=== PATIENT | male | born 1935 | race African-American/Black ===

== ENCOUNTER 2016-09-28 23:44 | Emergency (ER) | payer OTHER ==
[2016-09-28 23:49] VITALS: BP 157/85; PULSE 83; TEMP 97.8; BMI 22.0
[2016-09-29] MEDS ORDERED: ALBUTEROL SO4 2.5/IPRATROPIUM 0.5 INH SOL 3 ML VIAL.NEB. NEB ONE ×2 (00:02→00:18)
[2016-09-29] MEDS ORDERED: methylPREDNISolone NA SUCC 125 MG/2 ML VIAL IVPB ONE (00:02)
--- NOTE | 2016-09-29 00:02 | PDOC ---
History of Present Illness - General History Source: Patient Exam Limitations: No Limitations - History of Present Illness Initial Comments: 09/29/16 00:12 The patient is a 80 year old male with significant past medical history of CAD, s/p stents x, PVD (LE stent in 2012), hypertension, COPD, active smoker, asthma , ?afib in remote past was on coumadin but taken off who presents to the ED with 2 days of worsening SOB. Patient reports intermittent SOB over the past several weeks, however his SOB has worsened over the past 2 days. He also has complaints of productive cough with yellow sputum. Patient denies diaphoresis, lightheadedness, chest pain, shoulder pain, arm pain, jaw pain, nausea, and vomiting. The patient denies fever, chills, abdominal pain, and diarrhea. Allergies: NKDA Social History: Current smoker (5 cigarettes daily) Past Surgical History: s/p cardiac stent x1, s/p LE stent (2012) PCP: Dr. Armani Barraza <Olga Brooks - Last Filed: 09/29/16 00:46> - General History Source: Patient <AlyEdward saul - Last Filed: 09/29/16 01:58> - General Chief Complaint: Shortness of Breath Stated Complaint: SHORTNESS OF BREATH Time Seen by Provider: 09/28/16 23:58 Past History <Olga Brooks - Last Filed: 09/29/16 00:46> - Past Medical History Anemia: No Asthma: Yes Cancer: Yes (H/O PROSTATE) Cardiac Disorders: Yes (stents, [place] x 2) COPD: Yes Disorders: Yes (RETENTION) - Surgical History Cardiac Surgery: Yes (STENT) - Psycho/Social/Smoking Cessation Hx Anxiety: No Suicidal Ideation: No Smoking Status: Yes Smoking History: Current some day smoker Have you smoked in the past 12 months: Yes Number of Cigarettes Smoked Daily: 5 Information on smoking cessation initiated: No 'Breaking Loose' booklet given: 08/22/14 Hx Alcohol Use: No Drug/Substance Use Hx: No Substance Use Type: None <Edawrd Nelson - Last Filed: 09/29/16 01:58> - Past Medical History Allergies/Adverse Reactions: Allergies Allergy/AdvReac Type Severity Reaction Status Date / Time No Known Allergies Allergy Verified 09/28/16 23:46 Home Medications: Ambulatory Orders Albuterol [Ventolin] 17 gm IH ASDIR PRN 02/08/12 Esomeprazole Mag Trihydrate [Nexium] 40 mg PO BID 02/08/12 Hydrocodone Bit/Acetaminophen [Vicodin Es 7.5-750 mg Tablet] 1 each PO Q6H 02/07 Aspirin Coated [Ecotrin -] 81 mg PO DAILY #30 tablet.ec 08/24/14 Atorvastatin Ca [Lipitor] 20 mg PO HS #30 tablet 08/24/14 Diltiazem Cd [Cardizem Cd -] 180 mg PO DAILY #30 cap.cd.24h 08/24/14 Enoxaparin [Lovenox -] 75 mg SQ BID 7 Days 08/24/14 Furosemide [Lasix -] 20 mg PO DAILY #30 tablet 08/24/14 Tamsulosin HCl [Flomax -] 0.4 mg PO DAILY@0830 #30 cap.er.24h 08/24/14 Warfarin Na [Coumadin -] 5 mg PO DAILY@1800 #30 tablet 08/24/14 Methylprednisolone [Medrol Dose Emery] 4 mg PO ASDIR #21 tablet 09/29/16 Review of Systems - Review of Systems Able to Perform ROS?: Yes Comments:: 09/29/16 00:12 CONSTITUTIONAL: Absent: fever, chills, diaphoresis, generalized weakness, malaise, loss of appetite HEENT: Absent: rhinorrhea, nasal congestion, throat pain, throat swelling, difficulty swallowing, mouth swelling, ear pain, eye pain, visual Changes CARDIOVASCULAR: Absent: chest pain, syncope, palpitations, irregular heart rate, lightheadedness , peripheral edema RESPIRATORY: +cough, shortness of breath Absent: dyspnea with exertion, orthopnea, wheezing, stridor, hemoptysis GASTROINTESTINAL: Absent: abdominal pain, abdominal distension, nausea, vomiting, diarrhea, constipation, melena, hematochezia GENITOURINARY: Absent: dysuria, frequency, urgency, hesitancy, hematuria, flank pain, genital pain MUSCULOSKELETAL: Absent: myalgia, arthralgia, joint swelling SKIN: Absent: rash, itching, pallor NEUROLOGIC: Absent: headache, focal weakness or paresthesias, dizziness, unsteady gait, seizure, mental status changes, bladder or bowel incontinence PSYCHIATRIC: Absent: anxiety, depression, suicidal or homicidal ideation, hallucinations. <Olga Brooks - Last Filed: 09/29/16 00:46> *Physical Exam - Vital Signs Last Vital Signs Temp Pulse Resp BP Pulse Ox 97.8 F 83 16 157/85 100 09/28/16 23:47 09/28/16 23:47 09/28/16 23:47 09/28/16 23:47 09/28/16 23:47 - Physical Exam Comments: 09/29/16 00:12 GENERAL: Well developed, well nourished. Awake and alert. No acute distress. HEENT: Normocephalic, atraumatic. PERRLA, EOMI. No conjunctival pallor. Sclera are non- icteric. Moist mucous membranes. Oropharynx is clear. NECK: Supple. Full ROM. No JVD. Carotid pulses 2+ and symmetric, without bruits. No thyromegaly. No lymphadenopathy. CARDIOVASCULAR: Regular rate and rhythm. No murmurs, rubs, or gallops. Distal pulses are 2+ and symmetric. PULMONARY: Mild respiratory distress. Conversational dyspnea. Course bilateral wheezing. ABDOMINAL: Soft. Non-tender. Non-distended. No rebound or guarding. No organomegaly. Normoactive bowel sounds. MUSCULOSKELETAL Normal range of motion at all joints. No bony deformities or tenderness. No CVA tenderness. EXTREMITIES: No cyanosis. No clubbing. No edema. No calf tenderness. SKIN: Warm and dry. Normal capillary refill. No rashes. No jaundice. NEUROLOGICAL: Alert, awake, appropriate. Cranial nerves 2-12 intact. Moving all extremities. No focal neurological deficits. PSYCHIATRIC: Cooperative. Good eye contact. Appropriate mood and affect. <Olga Brooks - Last Filed: 09/29/16 00:46> - Vital Signs Last Vital Signs Temp Pulse Resp BP Pulse Ox 97.8 F 83 16 157/85 100 09/28/16 23:47 09/28/16 23:47 09/28/16 23:47 09/28/16 23:47 09/28/16 23:47 <Edward Nelson - Last Filed: 09/29/16 01:58> Heart Score/ECG Review - ECG Impressions Comment:: 09/29/16 00:46 NSR @80bpm Possible left atrial enlargement Anteroseptal infarct, age undetermined Abnormal ECG <Olga Brooks - Last Filed: 09/29/16 00:46> ED Treatment Course - LABORATORY CBC & Chemistry Diagram: 09/29/16 00:27 09/29/16 00:27 <Olga Brooks - Last Filed: 09/29/16 00:46> - LABORATORY CBC & Chemistry Diagram: 09/29/16 00:27 09/29/16 00:27 <Edward Nelson - Last Filed: 09/29/16 01:58> Medical Decision Making - Medical Decision Making 09/29/16 01:58 Dr. Nelson: The scribe's documentation has been prepared under my direction and personally reviewed by me in its entirery. I confirm that the note above accurately reflects all work, treatment, procedures, and medical decision making performed by me. <Edward Nelson - Last Filed: 09/29/16 01:58> *DC/Admit/Observation/Transfer - Attestations Scribe Attestion: 09/29/16 00:12 Documentation prepared by Olga Brooks, acting as medical authorization specialist for Edward Nelson MD <Olga Brooks - Last Filed: 09/29/16 00:46> - Discharge Dispostion Admit: No <Edward Nelson - Last Filed: 09/29/16 01:58> Diagnosis at time of Disposition: COPD (chronic obstructive pulmonary disease) - Discharge Dispostion Disposition: HOME Condition at time of disposition: Improved - Prescriptions Prescriptions: Methylprednisolone [Medrol Dose Emery] 4 mg PO ASDIR #21 tablet - Referrals Referrals: Armani Barraza MD [Staff Physician] - - Patient Instructions Printed Discharge Instructions: DI for Chronic Obstructive Pulmonary Disease
[2016-09-29] MEDS ORDERED: MAGNESIUM SULF 50% (8.12 MEQ/2 ML-1 GM VIAL) IVPB ONE (00:03)
[2016-09-29] MEDS ORDERED: methylPREDNISolone NA SUCC 125 MG/2 ML VIAL ONE (00:18)
[2016-09-29] MEDS ORDERED: MAGNESIUM SULF 50% (8.12 MEQ/2 ML-1 GM VIAL) ONE ×2 (00:18→00:19)
[2016-09-29 00:36] LABS: BASOPHIL 2.4 % (0-2.0); EOSINOPHIL 16.7 % (0-4.5); MCH 28.1 pg (25.7-33.7); MCHC 32.9 g/dl (32.0-35.9); MEAN CELL VOLUME 85.6 fl (80-96); MEAN PLT VOLUME 7.4 fl (7.5-11.1); NEUTROPHILS 24.1 % (42.8-82.8); PLATELET COUNT 224 K/MM3 (134-434); RDW 15.2 % (11.9-15.9); WHITE BLOOD COUNT 5.1 K/mm3 (4.0-10.0)
[2016-09-29 01:10] LABS: ALBUMIN 3.9 g/dl (3.4-5.0); BILIRUBIN,TOTAL 0.4 mg/dL (0.2-1.0); CALCIUM 8.4 mg/dL (8.5-10.1); CREATININE 1.3 mg/dL (0.7-1.3)
[2016-09-29 01:13] LABS: TROPONIN I < 0.02 ng/ml (0.00-0.05)
--- NOTE | 2016-09-29 15:38 | EKG ---
Test Reason : Blood Pressure : / mmHG Vent. Rate : 080 BPM Atrial Rate : 080 BPM P-R Int : 154 ms QRS Dur : 092 ms QT Int : 380 ms P-R-T Axes : 079 022 079 degrees QTc Int : 438 ms POOR DATA QUALITY, INTERPRETATION MAY BE ADVERSELY AFFECTED NORMAL SINUS RHYTHM POSSIBLE LEFT ATRIAL ENLARGEMENT ANTEROSEPTAL INFARCT (CITED ON OR BEFORE 11-FEB-2001) ABNORMAL ECG WHEN COMPARED WITH ECG OF 23-AUG-2014 09:07, PREMATURE VENTRICULAR COMPLEXES ARE NO LONGER PRESENT QUESTIONABLE CHANGE IN INITIAL FORCES OF ANTERIOR LEADS NONSPECIFIC T WAVE ABNORMALITY, IMPROVED IN LATERAL LEADS Confirmed by LUCERO HARRISON, [facility] ([id number]) on 09/29/2016 3:38:18 PM Referred By: Confirmed By:LUH BARKER MD
== END 2016-09-29 02:30 | disposition home or self-care (01) ==
LOC: JER 23:44
PROC: 3E0F7GC Introduction of Other Therapeutic Substance into Respiratory Tract, Via Natural or Artificial Opening (ICD-10-PCS; principal; 2016-09-28)
PROC: 3E0333Z Introduction of Anti-inflammatory into Peripheral Vein, Percutaneous Approach (ICD-10-PCS; 2016-09-28)
PROC: 3E033GC Introduction of Other Therapeutic Substance into Peripheral Vein, Percutaneous Approach (ICD-10-PCS; 2016-09-28)
DX: J44.9 Chronic obstructive pulmonary disease, unspecified (principal); I25.10 Atherosclerotic heart disease of native coronary artery without angina pectoris; I10 Essential (primary) hypertension; Z95.5 Presence of coronary angioplasty implant and graft; I73.89 Other specified peripheral vascular diseases; I48.91 Unspecified atrial fibrillation; F17.210 Nicotine dependence, cigarettes, uncomplicated; J45.909 Unspecified asthma, uncomplicated
CPT/HCPCS: 36415; 71010-TC; 80053; 82550; 82553; 84484; 85025; 93005; 93010; 99282-25

== ENCOUNTER 2017-07-20 10:41 | Inpatient (IN) | payer OTHER ==
[2017-07-20] MEDS ORDERED: ALBUTEROL SO4 2.5/IPRATROPIUM 0.5 INH SOL 3 ML VIAL.NEB. NEB ONE ×2 (10:48→11:54)
[2017-07-20 10:55] VITALS: BMI 22.0
[2017-07-20 11:20] LABS: BASOPHIL 1.8 % (0-2.0); MCHC 32.4 g/dl (32.0-35.9); MEAN CELL VOLUME 86.3 fl (80-96); MEAN PLT VOLUME 7.1 fl (7.5-11.1); NEUTROPHILS 38.5 % (42.8-82.8); PLATELET COUNT 280 K/MM3 (134-434); RDW 15.4 % (11.9-15.9); WHITE BLOOD COUNT 5.6 K/mm3 (4.0-10.0)
[2017-07-20] MEDS: ALBUTEROL SO4 2.5/IPRATROPIUM 0.5 INH SOL 3 ML VIAL.NEB. NEB SCH ×4 (11:20→13:08)
[2017-07-20 11:35] LABS: ALBUMIN 3.7 g/dl (3.4-5.0); ALK PHOS 48 U/L (45-117); ANION GAP 5 (8-16); BILIRUBIN,TOTAL 0.3 mg/dL (0.2-1.0); CALCIUM 8.2 mg/dL (8.5-10.1); CO2 31 mmol/L (21-32); CREATININE 1.2 mg/dL (0.7-1.3); GLUCOSE,RANDOM 98 mg/dL (74-106); SGOT/AST 14 U/L (15-37); SGPT/ALT 16 U/L (12-78); TOT PROT 6.8 g/dl (6.4-8.2)
--- NOTE | 2017-07-20 11:38 | PDOC ---
History of Present Illness - History of Present Illness Initial Comments: 07/20/17 12:20 The patient is a 81 year old male, with a significant past medical history of CAD s/p stents x2 (on Coumadin), COPD, BPH, prostate CA s/p radiation therapy, hyperlipidemia, who presents to the emergency department with progressive exertional shortness of breath and cough over the past few days. He states he has been short of breath with walking shorter than usual distances. He states he can walk several blocks at baseline without becoming dyspneic, however, today can not seem to walk more than 2 blocks. He reports his cough is productive of brown sputum. He reports receiving the influenza vaccine this season and attests to contact with a sick family member recently. He denies chest pain, headache and dizziness. He denies fever, chills, nausea, vomit, diarrhea and constipation. He denies dysuria, frequency, urgency and hematuria. Allergies: NKDA Past surgical history: stents x 2 Social history: everyday smoker since age 11 PCP: Dr. Barraza <Rosie Gunn - Last Filed: 07/20/17 12:24> <Lenin Atwood - Last Filed: 07/20/17 13:22> - General Chief Complaint: Shortness of Breath Stated Complaint: SOB Time Seen by Provider: 07/20/17 11:08 Past History <Rosie Gunn - Last Filed: 07/20/17 12:24> - Past Medical History Anemia: No Asthma: Yes Cancer: Yes (H/O PROSTATE) Cardiac Disorders: Yes (stents, [place] x 2) COPD: Yes Disorders: Yes (RETENTION) - Surgical History Cardiac Surgery: Yes (STENT) - Suicide/Smoking/Psychosocial Hx Smoking Status: Yes Smoking History: Current every day smoker Have you smoked in the past 12 months: Yes Number of Cigarettes Smoked Daily: 2 Information on smoking cessation initiated: No 'Breaking Loose' booklet given: 08/22/14 Hx Alcohol Use: No Drug/Substance Use Hx: No Substance Use Type: None <Lenin Atwood - Last Filed: 07/20/17 13:22> - Past Medical History Allergies/Adverse Reactions: Allergies Allergy/AdvReac Type Severity Reaction Status Date / Time No Known Allergies Allergy Verified 07/20/17 11:23 Home Medications: Ambulatory Orders Albuterol [Ventolin] 17 gm IH ASDIR PRN 02/08/12 Esomeprazole Mag Trihydrate [Nexium] 40 mg PO BID 02/08/12 Hydrocodone Bit/Acetaminophen [Vicodin Es 7.5-750 mg Tablet] 1 each PO Q6H 02/07 Aspirin Coated [Ecotrin -] 81 mg PO DAILY #30 tablet.ec 08/24/14 Atorvastatin Ca [Lipitor] 20 mg PO HS #30 tablet 08/24/14 Diltiazem Cd [Cardizem Cd -] 180 mg PO DAILY #30 cap.cd.24h 08/24/14 Enoxaparin [Lovenox -] 75 mg SQ BID 7 Days disp.syrin 08/24/14 Furosemide [Lasix -] 20 mg PO DAILY #30 tablet 08/24/14 Tamsulosin HCl [Flomax -] 0.4 mg PO DAILY@0830 #30 cap.er.24h 08/24/14 Warfarin Na [Coumadin -] 5 mg PO DAILY@1800 #30 tablet 08/24/14 Methylprednisolone [Medrol Dose Emery] 4 mg PO ASDIR #21 tablet 09/29/16 Review of Systems - Review of Systems Constitutional: No: Chills, Fever Respiratory: Yes: Cough, Shortness of Breath Cardiac (ROS): No: Chest Pain, Edema, Syncope ABD/GI: No: Diarrhea, Vomiting Neurological: No: Headache All Other Systems: Reviewed and Negative <Lenin Atwood - Last Filed: 07/20/17 13:22> *Physical Exam - Vital Signs Last Vital Signs Temp Pulse Resp BP Pulse Ox 98.2 F 88 24 152/84 100 07/20/17 10:52 07/20/17 10:52 07/20/17 10:52 07/20/17 10:52 07/20/17 11:02 - Physical Exam Comments: 07/20/17 12:20 GENERAL: The patient is awake, alert, and fully oriented, in no acute distress. HEAD: Normal with no signs of trauma. EYES: Pupils equal, round and reactive to light, extraocular movements intact, sclera anicteric, conjunctiva clear with no pallor. ENT: Ears normal, nares patent, oropharynx clear without exudates. Moist mucous membranes. NECK: Normal range of motion, supple without lymphadenopathy, JVD, or masses. LUNGS: (+) tachypneic. Breath sounds equal, Course breath sounds with slight expiratory wheezing but no focally decreased breath sounds, no inspiratory crackles, no accessory muscle use HEART: (+) Heart is irregular, premature beats on monitor, normal S1 and S2 without murmur or rub. ABDOMEN: Soft/nontender/nondistended. BS wnl. No guarding or rebound. No palpable masses. No hepatosplenomegaly. EXTREMITIES: Normal range of motion, no edema. No clubbing or cyanosis. No cords, erythema, or tenderness. NEUROLOGICAL: Cranial nerves II through XII grossly intact. Normal speech, normal gait. PSYCH: Normal mood, normal affect. SKIN: Warm, Dry, normal turgor, no rashes or lesions noted. <Rosie Gunn - Last Filed: 07/20/17 12:24> - Vital Signs Last Vital Signs Temp Pulse Resp BP Pulse Ox 98.2 F 88 24 152/84 100 07/20/17 10:52 07/20/17 10:52 07/20/17 10:52 07/20/17 10:52 07/20/17 11:02 <Lenin Atwood - Last Filed: 07/20/17 13:22> Heart Score/ECG Review #1 ECG reviewed & interpreted by me at: 10:56 General ECG Interpretation: Sinus Rhythm, Normal Rate (84), Normal Intervals ( qtc 430), No acute ischemic changes (Q AVL, APC v. sinus arrhythmia, septal Q waves) <Lenin Atwood - Last Filed: 07/20/17 13:22> ED Treatment Course - LABORATORY CBC & Chemistry Diagram: 07/20/17 11:00 07/20/17 11:00 - ADDITIONAL ORDERS Additional order review: Laboratory Results 07/20/17 11:00 Sodium 141 Potassium 4.4 Chloride 105 Carbon Dioxide 31 Anion Gap 5 L BUN 11 D Creatinine 1.2 Creat Clearance w eGFR 57.96 Random Glucose 98 Calcium 8.2 L Total Bilirubin 0.3 D AST 14 L ALT 16 Alkaline Phosphatase 48 Total Protein 6.8 Albumin 3.7 07/20/17 11:00 RBC 4.79 MCV 86.3 MCHC 32.4 RDW 15.4 MPV 7.1 L Neutrophils % 38.5 L D Lymphocytes % 28.4 D Monocytes % 13.3 H Eosinophils % 18.0 H Basophils % 1.8 - Medications Given in the ED: ED Medications Discontinued Medications Generic Name Dose Route Start Last Admin Trade Name Jagjit PRN Reason Stop Dose Admin Aspirin 81 mg 07/20/17 11:45 07/20/17 11:59 Asa - PO 07/20/17 11:46 81 mg ONCE ONE Administration Methylprednisolone Sodium Succinate 125 mg 07/20/17 11:58 07/20/17 12:03 Solu-Medrol - IVPB 07/20/17 11:59 125 mg ONCE ONE Administration <Rosie Gunn - Last Filed: 07/20/17 12:24> - LABORATORY CBC & Chemistry Diagram: 07/20/17 11:00 07/20/17 11:00 - ADDITIONAL ORDERS Additional order review: 07/20/17 11:00 RBC 4.79 MCV 86.3 MCHC 32.4 RDW 15.4 MPV 7.1 L Neutrophils % 38.5 L D Lymphocytes % 28.4 D Monocytes % 13.3 H Eosinophils % 18.0 H Basophils % 1.8 <Lenin Atwood - Last Filed: 07/20/17 13:22> Medical Decision Making - Medical Decision Making 07/20/17 11:55 A portion of this note was documented by scribe services under my direction. I have reviewed the details of the note, within reason, and agree with the documentation with the following case summary and management plan written by me. 81-year-old male with history of cardiac disease and COPD presents with 2 days of worsening dyspnea on exertion with cough but no fevers or chills. No chest pain, baseline exercise tolerance is several blocks but now having difficulty walking just 1 or 2 blocks. No orthopnea, no edema. Recent exposure to family members with upper respiratory infections, use his nebulizer without relief so he presents for evaluation. Tachypnea, vital signs otherwise normal Seen after first nebulizer, states he is breathing more comfortably Course breath sounds with slight expiratory wheezing but no focally decreased breath sounds, no inspiratory crackles, no accessory muscle use Heart is irregular, premature beats on monitor Abdomen is benign No edema 81-year-old male with known history of CAD/CHF and COPD presents with 2 days of worsening dyspnea, wheezing on exam without evidence of significant volume overload. Presentation seems most consistent with COPD exacerbation, possible cardiac component. Labs, monitoring Supplemental O2, nebulizers Start steroids EKG, chest x-ray Admission, PMD Madi 07/20/17 12:54 labs wnl, cxr without acute infiltrate, normal heart, hyperinflated consistent with COPD. Received nebs/steroids, will proceed with admission. Dr. Sinha/ Heriberto covering Madi. 07/20/17 13:19 Accepted for inpatient med/surg by Dr. Louis, covering Dr. Barraza. <Lenin Atwood - Last Filed: 07/20/17 13:22> *DC/Admit/Observation/Transfer - Attestations Scribe Attestion: 07/20/17 12:21 Documentation prepared by Rosie Gunn, acting as medical associate for Lenin Atwood MD, <Rosie Gunn - Last Filed: 07/20/17 12:24> - Discharge Dispostion Admit: Yes <Lenin Atwood - Last Filed: 07/20/17 13:22> Diagnosis at time of Disposition: Dyspnea on exertion, Acute exacerbation of chronic obstructive pulmonary disease (COPD) - Discharge Dispostion Condition at time of disposition: Fair - Referrals Referrals: Armani Barraza MD [Primary Care Provider] - - Patient Instructions - Post Discharge Activity
[2017-07-20] MEDS ORDERED: ASPIRIN 81 MG CHEWABLE TABLETS PO ONE (11:45)
[2017-07-20] MEDS ORDERED: ASPIRIN 81 MG CHEWABLE TABLETS ONE (11:53)
[2017-07-20] MEDS ORDERED: methylPREDNISolone NA SUCC 1000 MG/8 ML VIAL IVPB ONE (11:58)
[2017-07-20] MEDS ORDERED: methylPREDNISolone NA SUCC 125 MG/2 ML VIAL ONE (12:02)
[2017-07-20 12:35] LABS: CPK 334 IU/L (39-308); TROPONIN I < 0.02 ng/ml (0.00-0.05)
--- NOTE | 2017-07-20 16:30 | EKG ---
Test Reason : Blood Pressure : / mmHG Vent. Rate : 084 BPM Atrial Rate : 084 BPM P-R Int : 158 ms QRS Dur : 096 ms QT Int : 364 ms P-R-T Axes : 084 063 077 degrees QTc Int : 430 ms SINUS RHYTHM WITH MARKED SINUS ARRHYTHMIA ANTEROSEPTAL INFARCT (CITED ON OR BEFORE 11-FEB-2001) ABNORMAL ECG WHEN COMPARED WITH ECG OF 29-SEP-2016 00:27, NO SIGNIFICANT CHANGE WAS FOUND Confirmed by [facility] BARKER MD ([id number]) on 07/20/2017 4:30:22 PM Referred By: Confirmed By:LUH BARKER MD
[2017-07-20] MEDS ORDERED: ALBUTEROL SO4 2.5/IPRATROPIUM 0.5 INH SOL 3 ML VIAL.NEB. NEB PRN (20:58)
[2017-07-20 20:59] LABS: INR 1.82 (0.82-1.09); PROTHROMBIN TIME (PATIENT) 20.6 SEC (9.98-11.88)
[2017-07-20] MEDS: methylPREDNISolone NA SUCC 40 MG/1 ML VIAL IVPUSH SCH (21:55)
[2017-07-20] MEDS: WARFARIN NA 5 MG TABLET (UD) PO SCH (21:55)
[2017-07-20] MEDS: RANITIDINE HCL 150 MG TABLET (FP) PO SCH (21:55)
[2017-07-20] MEDS ORDERED: INSULIN SLIDING SCALE (NOVOLOG) 1 VIAL SQ SCH (22:00)
[2017-07-21] MEDS: methylPREDNISolone NA SUCC 40 MG/1 ML VIAL IVPUSH SCH ×2 (02:42→10:11)
[2017-07-21] MEDS: RANITIDINE HCL 150 MG TABLET (FP) PO SCH (06:23)
[2017-07-21 07:08] LABS: BASOPHIL 0.2 % (0-2.0); MCH 27.9 pg (25.7-33.7); MCHC 32.6 g/dl (32.0-35.9); MEAN CELL VOLUME 85.6 fl (80-96); MEAN PLT VOLUME 7.2 fl (7.5-11.1); NEUTROPHILS 70.2 % (42.8-82.8); PLATELET COUNT 291 K/MM3 (134-434); RDW 15.5 % (11.9-15.9); WHITE BLOOD COUNT 3.1 K/mm3 (4.0-10.0)
[2017-07-21 07:20] LABS: INR 1.79 (0.82-1.09); PROTHROMBIN TIME (PATIENT) 20.2 SEC (9.98-11.88)
[2017-07-21 07:47] LABS: ALBUMIN 3.3 g/dl (3.4-5.0); ANION GAP 11 (8-16); CALCIUM 7.9 mg/dL (8.5-10.1); CO2 24 mmol/L (21-32); GLUCOSE,RANDOM 132 mg/dL (74-106); SGOT/AST 9 U/L (15-37); SGPT/ALT 13 U/L (12-78)
[2017-07-21 07:50] LABS: ALK PHOS 42 U/L (45-117); BILIRUBIN,TOTAL 0.4 mg/dL (0.2-1.0); TOT PROT 6.2 g/dl (6.4-8.2)
[2017-07-21] MEDS: ROSUVASTATIN CA 20 MG TABLET (FP) PO SCH (10:10)
[2017-07-21] MEDS: PANTOPRAZOLE 40 MG TABLET (FP) PO SCH (10:10)
[2017-07-21] MEDS: TAMSULOSIN HCL 0.4 MG CAP.ER.24H (FP) PO SCH (10:10)
[2017-07-21] MEDS: FUROSEMIDE 40 MG TABLET (FP) PO SCH ×3 (10:11→11:18)
[2017-07-21] MEDS ORDERED: guaiFENesin 200 MG/10 ML 10 ML UNIT-DOSE CUPS PO PRN (10:20)
--- NOTE | 2017-07-21 10:24 | HP ---
Admitting History and Physical - Primary Care Physician PCP: Armani Barraza - Admission Chief Complaint: sob History of Present Illness: The patient is a 81 year old male, pt of Dr. Barraza --with a significant past medical history of CAD s/p stents x2, aflutter - (on Coumadin), COPD, BPH, prostate CA s/p radiation therapy, hyperlipidemia, who presents to the emergency department with progressive exertional shortness of breath and cough over the past few days. He states he has been short of breath with walking shorter than usual distances. He states he can walk several blocks at baseline without becoming dyspneic, however, today can not seem to walk more than 2 blocks. He reports his cough is productive of brown sputum. He reports receiving the influenza vaccine this season and attests to contact with a sick family member recently. He denies chest pain, headache and dizziness. He denies fever, chills, nausea, vomit, diarrhea and constipation. He denies dysuria, frequency, urgency and hematuria. Allergies: NKDA Past surgical history: stents x 2 Social history: everyday smoker since age 11-- still smoking. PCP: Dr. Barraza. pt found in copd exac given steroids/ nebulizer treatment with some relief admitted to floor Pt seen/ examined today. chart reviewed. pt feels better still having productive cough. afebrile denies cp. decreased sob. no abd pain. no headche/ dizziness. no urinary / bowel trouble denies fever/ chills. labs / cxr reviewed. History Source: Patient Limitations to Obtaining History: No Limitations - Past Medical History Cardiovascular: Yes: AFIB, CAD, HTN Pulmonary: Yes: COPD Gastrointestinal: Yes: GERD Musculoskeletal: Yes: Chronic low back pain - Smoking History Smoking history: Current every day smoker Have you smoked in the past 12 months: Yes Aproximately how many cigarettes per day: 2 - Alcohol/Substance Use Hx Alcohol Use: No Home Medications - Allergies Allergies/Adverse Reactions: Allergies Allergy/AdvReac Type Severity Reaction Status Date / Time No Known Allergies Allergy Verified 07/20/17 11:23 - Home Medications Home Medications: Ambulatory Orders Albuterol [Ventolin] 17 gm IH ASDIR PRN 02/08/12 Tamsulosin HCl [Flomax -] 0.4 mg PO DAILY@0830 #30 cap.er.24h 08/24/14 Warfarin Na [Coumadin -] 5 mg PO DAILY@1800 #30 tablet 08/24/14 Fluticasone/Salmeterol [Advair 250-50 Diskus] 1 each IH DAILY 07/20/17 Furosemide [Lasix -] 40 mg PO DAILY 07/20/17 Hydrocodone/Ibuprofen [Hydrocodone-Ibuprofen 7.5-200] 1 each PO TID PRN Ranitidine HCl [Zantac] 150 mg PO TID 07/20/17 Rosuvastatin Calcium [Crestor] 40 mg PO DAILY 07/20/17 Review of Systems Findings/Remarks: see [place] Physical Examination Vital Signs: Vital Signs Temperature 98 F 07/21/17 10:06 Pulse Rate 111 H 07/21/17 10:06 Respiratory Rate 18 07/21/17 10:06 Blood Pressure 126/86 07/21/17 10:06 O2 Sat by Pulse Oximetry (%) 91 L 07/20/17 21:53 Eyes: Yes: Conjunctiva Clear Neck: Yes: Supple, Trachea Midline Cardiovascular: Yes: Regular Rate and Rhythm Respiratory: Yes: Rhonchi, SOB on Exertion Gastrointestinal: Yes: Normal Bowel Sounds, Soft Edema: No Neurological: Yes: Alert Psychiatric: Yes: Alert Labs: CBC, BMP 07/21/17 06:00 07/21/17 06:00 Imaging - Results Chest X-ray: Report Reviewed EKG: Report Reviewed Problem List - Problems (1) Acute exacerbation of chronic obstructive pulmonary disease (COPD) Code(s): J44.1 - CHRONIC OBSTRUCTIVE PULMONARY DISEASE W (ACUTE) EXACERBATION (2) Dyspnea on exertion Code(s): R06.09 - OTHER FORMS OF DYSPNEA (3) Atrial flutter Code(s): I48.92 - UNSPECIFIED ATRIAL FLUTTER (4) CAD (coronary artery disease) Code(s): I25.10 - ATHSCL HEART DISEASE OF [place] CORONARY ARTERY W/O ANG PCTRS (5) HTN (hypertension) Code(s): I10 - ESSENTIAL (PRIMARY) HYPERTENSION Assessment/Plan i/v steroids abx ct chest continue other meds nebulizer treatment coumadin per inr level. will follow. counselled strongly to quit smoking.
--- NOTE | 2017-07-21 13:27 | CON.PULM ---
Consult Consult Specialty:: PULMONARY Referred by:: TOÑITO Reason for Consultation:: SOTO/COUGH - History of Present Illness Chief Complaint: SOTO/COUGH History of Present Illness: 81 year old AA male born in [place] and worked for the [employer], with a significant past medical history of CAD s/p stents x2 (on Coumadin), COPD, BPH, prostate CA s/p radiation therapy, hyperlipidemia, active smoker, presents to the emergency department with progressive exertional shortness of breath and cough over the past few days. He states he has been short of breath with walking shorter than usual distances. He states he can walk several blocks at baseline without becoming dyspneic, however, lately can not seem to walk more than 2 blocks. He reports his cough is productive of brown sputum. He reports receiving the influenza vaccine this season and attests to contact with a sick family member recently. He denies chest pain, headache and dizziness. He denies fever, chills, nausea, vomit, diarrhea and constipation. He denies dysuria, frequency, urgency and hematuria. - History Source History Provided By: Patient, Medical Record Limitations to Obtaining History: No Limitations - Past Medical History EDUCATION MANAGERS: No: Alzheimer's Cardio/Vascular: Yes: AFIB, CAD, HTN Pulmonary: Yes: COPD Gastrointestinal: Yes: GERD Hepatobiliary: No: Cirrhosis Renal/: No: Renal Failure Heme/Onc: No: Anemia Psych: No: Addictions Musculoskeletal: Yes: Chronic low back pain - Past Surgical History Additional Surgical History: prostate seed implant - Alcohol/Substance Use Hx Alcohol Use: No History of Substance Use: reports: None - Smoking History Smoking history: Current every day smoker Have you smoked in the past 12 months: Yes Aproximately how many cigarettes per day: 2 - Social History Place of : [facility] History of Recent Travel: No Home Medications - Allergies Allergies/Adverse Reactions: Allergies Allergy/AdvReac Type Severity Reaction Status Date / Time No Known Allergies Allergy Verified 07/20/17 11:23 - Home Medications Home Medications: Ambulatory Orders Albuterol [Ventolin] 17 gm IH ASDIR PRN 02/08/12 Tamsulosin HCl [Flomax -] 0.4 mg PO DAILY@0830 #30 cap.er.24h 08/24/14 Warfarin Na [Coumadin -] 5 mg PO DAILY@1800 #30 tablet 08/24/14 Fluticasone/Salmeterol [Advair 250-50 Diskus] 1 each IH DAILY 07/20/17 Furosemide [Lasix -] 40 mg PO DAILY 07/20/17 Hydrocodone/Ibuprofen [Hydrocodone-Ibuprofen 7.5-200] 1 each PO TID PRN Ranitidine HCl [Zantac] 150 mg PO TID 07/20/17 Rosuvastatin Calcium [Crestor] 40 mg PO DAILY 07/20/17 Family Disease History - Family Disease History Family History: Unremarkable Review of Systems - Review of Systems Cardiovascular: reports: Shortness of Breath. denies: Chest Pain, Edema, Palpitations Respiratory: reports: Cough, Exercise Intolerance, SOB on Exertion. denies: Hemoptysis Gastrointestinal: denies: Bloating Genitourinary: denies: Burning Physical Exam Vital Sings: Vital Signs Temperature 98 F 07/21/17 10:06 Pulse Rate 111 H 07/21/17 10:06 Respiratory Rate 18 07/21/17 10:06 Blood Pressure 126/86 07/21/17 10:06 O2 Sat by Pulse Oximetry (%) 91 L 07/20/17 21:53 Constitutional: Yes: Calm Eyes: Yes: EOM Intact HENT: Yes: Normocephalic Neck: Yes: Trachea Midline Cardiovascular: Yes: Pulse Irregular, S1, S2 Respiratory: Yes: Diminished Gastrointestinal: Yes: Normal Bowel Sounds Edema: No Integumentary: Yes: WNL Neurological: Yes: WNL ...Motor Strength: WNL Psychiatric: Yes: WNL Labs: CBC, BMP 07/21/17 06:00 07/21/17 06:00 REST REVIEWED Imaging - Results Chest X-ray: Report Reviewed, Image Reviewed Cat Scan: Pending Problem List - Problems (1) Acute exacerbation of chronic obstructive pulmonary disease (COPD) Code(s): J44.1 - CHRONIC OBSTRUCTIVE PULMONARY DISEASE W (ACUTE) EXACERBATION (2) Dyspnea on exertion Code(s): R06.09 - OTHER FORMS OF DYSPNEA (3) Atrial fibrillation Code(s): I48.91 - UNSPECIFIED ATRIAL FIBRILLATION (4) CAD (coronary artery disease) Code(s): I25.10 - ATHSCL HEART DISEASE OF [place] CORONARY ARTERY W/O ANG PCTRS (5) COPD (chronic obstructive pulmonary disease) Code(s): J44.9 - CHRONIC OBSTRUCTIVE PULMONARY DISEASE, UNSPECIFIED (6) HTN (hypertension) Code(s): I10 - ESSENTIAL (PRIMARY) HYPERTENSION Assessment/Plan A/E COPD LIKELY ACUTE BRONCHITIS R/O PNA PROSTATE CA S/P SEED IMPLANTATION HYPERLIPIDEMIA CT CHEST SPUTUM GRAM STAIN/CULTURE CHECK PRE/POST AMB SPO2 O2 SUPPLEMENTATION BRONCHODILATORS/ANTIBIOTICS BRIEF COURSE IV STEROIDS CHECK ECHO(RVSP) [facility] INR 2.5 Jenni HARDY MD
[2017-07-21] MEDS ORDERED: PT OWN MED DRAWER 7, Y5N ONE (13:40)
[2017-07-21] MEDS: AZITHROMYCIN IVPB 500 MG in DEXTROSE 5%-WATER - 250 ML IVPB SCH (13:42)
[2017-07-21] MEDS: methylPREDNISolone NA SUCC 40 MG/1 ML VIAL IVPB SCH ×3 (15:16→21:26)
[2017-07-21] MEDS: BUDESONIDE/FORMETEROL FUMARATE 80/4.5 mcg INHALER IH SCH ×2 (16:29→21:23)
[2017-07-21] MEDS: ALBUTEROL SO4 2.5/IPRATROPIUM 0.5 INH SOL 3 ML VIAL.NEB. NEB SCH ×2 (17:05→23:06)
--- NOTE | 2017-07-21 17:36 | HOSP ---
Physical Examination Vital Signs: Vital Signs Temperature 97.6 F 07/21/17 17:06 Pulse Rate 99 H 07/21/17 17:06 Respiratory Rate 18 07/21/17 17:06 Blood Pressure 142/77 07/21/17 17:06 O2 Sat by Pulse Oximetry (%) 98 07/21/17 09:00 Labs: CBC, BMP 07/21/17 06:00 07/21/17 06:00 Hospitalist Encounter Assessment: Called by primary RN that patient is demanding to leave AMA On exam, patient is sitting on the bed, in no acute distress, slightly agitated while eating his dinner stating he is done with being here and wants to go home I spoke to patient with primary nurse in attendance POC reviewed with patient, explained to him why he was admitted and the goals are to optimize his respiratory status prior to discharge I explained to him that although he feels better, he is not ready for discharge as we are still treating him with IV steriods and IV antibiotics to help him breathe and get better. I also explained that he will need to be evaluated and cleared by the merchandise executive prior to discharge After a conversation with patient, he is now in agreement to stay, wants to leave by tomorrow and wants to speak to the pulmonary team in the morning. I assured him that we will discharge him once we feel his condition is stable, but tomorrow is possible if pulmonary clears him. Neuro: alert and oriented x 3, periods of agitation but now calmer Lungs: diminished, tolerating room air, slightly short of breath with conversation Abdomen: soft, non distended, denies nausea/vomiting Plan: - Monitor patient's respiratory status overnight and consider discharge once cleared by pulmonary team - Respiratory pre and post - Incentive spirometer
[2017-07-21] MEDS: WARFARIN NA 5 MG TABLET (UD) PO SCH (17:42)
[2017-07-21] MEDS ORDERED: WARFARIN NA 2 MG TABLET (UD) PO ONE (18:00)
[2017-07-22] MEDS: methylPREDNISolone NA SUCC 40 MG/1 ML VIAL IVPB SCH ×2 (02:07→08:42)
[2017-07-22] MEDS: ALBUTEROL SO4 2.5/IPRATROPIUM 0.5 INH SOL 3 ML VIAL.NEB. NEB SCH ×2 (06:33→11:02)
[2017-07-22 08:06] LABS: INR 1.65 (0.82-1.09); PROTHROMBIN TIME (PATIENT) 18.7 SEC (9.98-11.88)
[2017-07-22] MEDS: TAMSULOSIN HCL 0.4 MG CAP.ER.24H (FP) PO SCH (08:41)
[2017-07-22] MEDS: AZITHROMYCIN IVPB 500 MG in DEXTROSE 5%-WATER - 250 ML IVPB SCH (09:28)
[2017-07-22] MEDS: ROSUVASTATIN CA 20 MG TABLET (FP) PO SCH (09:28)
[2017-07-22] MEDS: BUDESONIDE/FORMETEROL FUMARATE 80/4.5 mcg INHALER IH SCH (09:28)
[2017-07-22] MEDS: PANTOPRAZOLE 40 MG TABLET (FP) PO SCH (09:28)
[2017-07-22] MEDS: FUROSEMIDE 40 MG TABLET (FP) PO SCH (09:29)
[2017-07-22 10:18] VITALS: BP 119/65; PULSE 93; TEMP 98.4
--- NOTE | 2017-07-22 12:12 | PN ---
Progress Note (short form) - Note Progress Note: PULMONARY States breathing is back to baseline. No cough or wheezing. CT chest showing diffuse emphysematous changes, apical scarring and stable nodules. Last Vital Signs Temp Pulse Resp BP Pulse Ox 98.4 F 93 H 18 119/65 95 07/22/17 09:00 07/22/17 09:00 07/22/17 09:00 07/22/17 09:00 07/22/17 09:00 Intake & Output 07/19/17 07/20/17 07/21/17 07/22/17 23:59 23:59 23:59 23:59 Intake Total 200 670 150 Balance 200 670 150 Weight 167 lb Gen: NAD at rest Heart: RRR Lung: distant breath sounds, no wheezes Abd: soft, nontender Ext: no edema CBC, BMP 07/21/17 06:00 07/21/17 06:00 Active Medications Albuterol/Ipratropium (Duoneb -) 1 amp NEB QIDR [facility] Last Admin: 07/22/17 11:02 Dose: 1 amp Budesonide/Formoterol Fumarate (Symbicort 80/4.5mcg -) 2 puff IH BID [facility] Last Admin: 07/22/17 09:28 Dose: 2 puff Furosemide (Lasix -) 40 mg PO DAILY [facility] Last Admin: 07/22/17 09:29 Dose: Not Given Guaifenesin (Robitussin -) 10 ml PO Q6H PRN PRN Reason: COUGH Last Admin: 07/21/17 11:17 Dose: 10 ml Azithromycin 500 mg/ Dextrose 250 mls @ 250 mls/hr IVPB DAILY [facility] Last Admin: 07/22/17 09:28 Dose: 250 mls/hr Methylprednisolone Sodium Succinate (Solu-Medrol -) 40 mg IVPB Q6H-IV [facility] Last Admin: 07/22/17 08:42 Dose: Not Given Pantoprazole Sodium (Protonix -) 40 mg PO DAILY [facility] Last Admin: 07/22/17 09:28 Dose: 40 mg Rosuvastatin Calcium (Crestor -) 40 mg PO DAILY [facility] Last Admin: 07/22/17 09:28 Dose: Not Given Tamsulosin HCl (Flomax -) 0.4 mg PO DAILY@0830 [facility] Last Admin: 07/22/17 08:41 Dose: Not Given Warfarin Sodium (Coumadin -) 5 mg PO DAILY@1800 [facility] Last Admin: 07/21/17 17:42 Dose: 5 mg A/P Acute COPD Exacerbation Acute Bronchitis Emphysema Lung Nodules Hyperlipidemia CAD Atrial Flutter Smoker - can change steroids to PO prednisone and complete 5 more days - complete azithromycin - inhaled bronchodilators - encouraged smoking cessation - will need outpt PET scan, PFTs - can discharge home from pulmonary standpoint
[2017-07-22] MEDS ORDERED: PT OWN MED DRAWER 7, Y5N ONE (13:00)
[2017-07-22] MEDS ORDERED: WARFARIN NA 2.5 MG TABLET (FP) PO ONE (13:13)
--- NOTE | 2017-07-22 13:16 | DS ---
Physical Examination Vital Signs: Vital Signs Temperature 98.4 F 07/22/17 09:00 Pulse Rate 93 H 07/22/17 09:00 Respiratory Rate 18 07/22/17 09:00 Blood Pressure 119/65 07/22/17 09:00 O2 Sat by Pulse Oximetry (%) 95 07/22/17 09:00 Findings/Remarks: feels much better wants to go home dont want to stay no complains Constitutional: Yes: No Distress, Calm Eyes: Yes: Conjunctiva Clear Neck: Yes: Supple Respiratory: Yes: Diminished (at bases) Gastrointestinal: Yes: Normal Bowel Sounds, Soft Edema: No Labs: CBC, BMP 07/21/17 06:00 07/21/17 06:00 Discharge Summary Reason For Visit: COPD Current Active Problems Acute exacerbation of chronic obstructive pulmonary disease (COPD) (Acute) Dyspnea on exertion (Acute) Hospital Course: The patient is a 81 year old male, pt of Dr. Barraza --with a significant past medical history of CAD s/p stents x2, aflutter - (on Coumadin), COPD, BPH, prostate CA s/p radiation therapy, hyperlipidemia, who presents to the emergency department with progressive exertional shortness of breath and cough over the past few days. pt admitted for copd exac treated with abx/ steroids much better pulmonary followed. echo/ chest ct done-- ct chest noted for copd-- Need PET SCAN as ot pt. - concern of malignancy. Pt explained strongly the importance of above and need to follow with pmd and pulmonary will discharge on po steroids/abx pt in agreement. Meds reconcilled/ prescribed as needed discharge time in examining/ documenting / counselling and coordating care-- 35 min Condition: Fair - Instructions Diet, Activity, Other Instructions: Pet Scan as out patient . Need to follow with his pulmonary and primary. Referrals: Armani Barraza MD [Primary Care Provider] - Eriberto Morse MD [Staff Physician] - Disposition: HOME - Home Medications Comprehensive Discharge Medication List: Ambulatory Orders Albuterol [Ventolin] 17 gm IH ASDIR PRN 02/08/12 Tamsulosin HCl [Flomax -] 0.4 mg PO DAILY@0830 #30 cap.er.24h 08/24/14 Fluticasone/Salmeterol [Advair 250-50 Diskus] 1 each IH DAILY 07/20/17 Furosemide [Lasix -] 40 mg PO DAILY 07/20/17 Hydrocodone/Ibuprofen [Hydrocodone-Ibuprofen 7.5-200] 1 each PO TID PRN Ranitidine HCl [Zantac] 150 mg PO TID 07/20/17 Rosuvastatin Calcium [Crestor] 40 mg PO DAILY 07/20/17 Albuterol 2.5/Ipratropium 0.5 [Duoneb -] 1 amp NEB QIDR amp 07/22/17 Azithromycin [Zithromax Tri-Emery (3 DAYS) -] 500 mg PO DAILY #3 tablet 07/22/17 Budesonide/Formeterol Fumarate [SYMBICORT 80/4.5mcg -] 2 puff IH BID inhaler Furosemide [Lasix -] 40 mg PO DAILY tablet 07/22/17 Prednisone [Deltasone -] 10 mg PO DAILY #30 tablet 07/22/17 Warfarin Na [Coumadin -] 7.5 mg PO DAILY@1800 #30 tablet 07/22/17
[2017-07-23] MEDS ORDERED: predniSONE 20 MG TABLET (UD) PO SCH (10:00)
== END 2017-07-22 13:47 | disposition home or self-care (01) | DRG 191 ==
LOC: JER 10:41 → INTOOBSV 13:22 → OBSVTOIN 13:22 → JERBED 13:22 → J7W 16:23
PROVIDERS: ADMIT Internal Medicine; ATTEND Internal Medicine
DX: J44.1 Chronic obstructive pulmonary disease with (acute) exacerbation (principal); I48.92 Unspecified atrial flutter; I25.10 Atherosclerotic heart disease of native coronary artery without angina pectoris; J20.9 Acute bronchitis, unspecified; J44.0 Chronic obstructive pulmonary disease with (acute) lower respiratory infection; N40.0 Benign prostatic hyperplasia without lower urinary tract symptoms; K21.9 Gastro-esophageal reflux disease without esophagitis; E78.5 Hyperlipidemia, unspecified; I10 Essential (primary) hypertension; M54.5 Low back pain; R91.1 Solitary pulmonary nodule; F17.210 Nicotine dependence, cigarettes, uncomplicated; I25.2 Old myocardial infarction; Z79.01 Long term (current) use of anticoagulants; Z79.52 Long term (current) use of systemic steroids; Z85.46 Personal history of malignant neoplasm of prostate; Z95.5 Presence of coronary angioplasty implant and graft
CPT/HCPCS: 36415; 71020-TC; 71250-TC; 80053; 82550; 82553; 84484; 85025; 85610; 93005; 93010; 94640; 99285-25

== ENCOUNTER 2017-12-10 04:58 | Inpatient (IN) | payer OTHER ==
--- NOTE | 2017-12-10 05:28 | PDOC ---
History of Present Illness - General Chief Complaint: Shortness of Breath Stated Complaint: DIFFICULTY BREATHING Time Seen by Provider: 12/10/17 05:25 - History of Present Illness Initial Comments: 81 year old male with PMH of CAD (s/p stents x2), aflutter (on Coumadin), COPD (intubated in the past), BPH, prostate CA (s/p radiation and surgery) and hyperlipidemia presenting to the ED with exertional SOB over the past few days. Patient state that he has been more fatigued with activity over the last few days and has a stable baseline cough over the past few days as well productive of clear sputum. He feels as if he is fluid overloaded. He got his flu vaccine this year. Denies fevers, chills, nausea, vomiting, diarrhea, constipation, or other sick symptoms. Still smokes 1-2 cigarettes daily with 60 pack year smoking history. 12/10/17 05:32 Past History - Past Medical History Allergies/Adverse Reactions: Allergies Allergy/AdvReac Type Severity Reaction Status Date / Time No Known Allergies Allergy Verified 12/10/17 05:15 Home Medications: Ambulatory Orders Albuterol [Ventolin] 17 gm IH ASDIR PRN 02/08/12 Tamsulosin HCl [Flomax -] 0.4 mg PO DAILY@0830 #30 cap.er.24h 08/24/14 Fluticasone/Salmeterol [Advair 250-50 Diskus] 1 each IH DAILY 07/20/17 Furosemide [Lasix -] 40 mg PO DAILY 07/20/17 Hydrocodone/Ibuprofen [Hydrocodone-Ibuprofen 7.5-200] 1 each PO TID PRN Ranitidine HCl [Zantac] 150 mg PO TID 07/20/17 Rosuvastatin Calcium [Crestor] 40 mg PO DAILY 07/20/17 Albuterol 2.5/Ipratropium 0.5 [Duoneb -] 1 amp NEB QIDR amp 07/22/17 Azithromycin [Zithromax Tri-Emery (3 DAYS) -] 500 mg PO DAILY #3 tablet 07/22/17 Budesonide/Formeterol Fumarate [SYMBICORT 80/4.5mcg -] 2 puff IH BID inhaler predniSONE [Deltasone -] 10 mg PO DAILY #30 tablet 07/22/17 Warfarin Na [Coumadin -] 5 mg PO DAILY@1800 12/10/17 Anemia: No Asthma: Yes Cancer: Yes (H/O PROSTATE) Cardiac Disorders: Yes (stents, [place] x 2) COPD: Yes Disorders: Yes (RETENTION) - Surgical History Cardiac Surgery: Yes (STENT) - Suicide/Smoking/Psychosocial Hx Smoking Status: Yes Smoking History: Never smoked Have you smoked in the past 12 months: No Number of Cigarettes Smoked Daily: 2 Information on smoking cessation initiated: No 'Breaking Loose' booklet given: 08/22/14 Hx Alcohol Use: No Drug/Substance Use Hx: No Substance Use Type: None Review of Systems - Review of Systems Constitutional: No: Chills, Diaphoresis, Fever HEENTM: No: Tearing, Recent change in vision Respiratory: Yes: Cough, Shortness of Breath, SOB with Exertion, Productive cough Cardiac (ROS): No: Chest Pain, Edema, Irregular Heart Rate ABD/GI: No: Diarrhea, Nausea, Vomiting : No: Burning, Dysuria *Physical Exam - Vital Signs Last Vital Signs Temp Pulse Resp BP Pulse Ox 98.3 F 95 H 22 151/96 100 12/10/17 05:15 12/10/17 05:15 12/10/17 05:15 12/10/17 05:15 12/10/17 05:15 - Physical Exam General Appearance: Yes: Nourished, Appropriately Dressed. No: Apparent Distress HEENT: positive: EOMI, TEVIN, Normal ENT Inspection Neck: positive: Trachea midline, Normal Thyroid, Supple. negative: Tender, Rigid Respiratory/Chest: positive: Crackles, Rales. negative: Chest Tender, Lungs Clear, Normal Breath Sounds, Respiratory Distress Cardiovascular: positive: Irregularly Irregular. negative: Regular Rhythm, Regular Rate Gastrointestinal/Abdominal: positive: Normal Bowel Sounds, Flat, Soft. negative : Tender Male Genitalia: positive: normal genitalia Musculoskeletal: positive: Normal Inspection Extremity: positive: Normal Capillary Refill, Normal Inspection, Normal Range of Motion. negative: Tender Integumentary: positive: Normal Color, Dry, Warm Neurologic: positive: Fully Oriented, Alert, Normal Mood/Affect, Motor Strength 5/5 ED Treatment Course - LABORATORY CBC & Chemistry Diagram: 12/11/17 06:30 12/11/17 06:30 Medical Decision Making - Medical Decision Making 81 year old male with mild respiratory distress on exertion concerning for COPD vs. CHF exacerbation. Given breathing treatments, steroids, and labs/ CXR pending when he was signed out to Dr. Almeida in stable condition. 12/11/17 22:07 *DC/Admit/Observation/Transfer Diagnosis at time of Disposition: Dyspnea on exertion - Discharge Dispostion Disposition: HOME Condition at time of disposition: Stable - Referrals - Patient Instructions - Post Discharge Activity
--- NOTE | 2017-12-10 05:29 | PDOC ---
Attending Attestation - Resident Resident Name: Katarina Abbott - ED Attending Attestation I have performed the following: I have examined & evaluated the patient, The case was reviewed & discussed with the resident, I agree w/resident's findings & plan, Exceptions are as noted - HPI HPI: 12/10/17 08:07 Patient is an 81 year old male with a significant past medical history of COPD ( previous intubation), CAD s/p stents x2, Aflutter on Coumadin, COPD, BPH, prostate CA s/p radiation therapy, hyperlipidemia, HTN who presents to the ED with complaints of progressive exertional shortness of breath that began 3 days ago. Pt tried nebs at home with minimal relief. Denies CP, nausea, vomiting. Denies contact with sick individuals, out of state travelling. Denies dysuria, hematuria, constipation, diarrhea. Denies any other symptoms. Allergies: None Social history: Current smoker ( Since 11 y.o). No alcohol. No illicit drugs. Surgical history: stents x 2 PMD: Dr. Powell - Physicial Exam PE: 12/10/17 08:12 GENERAL: Awake, alert, and fully oriented, in no acute distress HEAD: No signs of trauma EYES: PERRLA, EOMI, sclera anicteric, conjunctiva clear ENT: Auricles normal inspection, hearing grossly normal, nares patent, oropharynx clear without exudates. Moist mucosa NECK: Normal ROM, supple, no lymphadenopathy, JVD, or masses LUNGS: diminished BS diffusely, mild wheezing throughout, no crackles or rhonchi HEART: Regular rate and rhythm, normal S1 and S2, no murmurs, rubs or gallops ABDOMEN: Soft, nontender, normoactive bowel sounds. No guarding, no rebound. No masses EXTREMITIES: Normal range of motion, no edema. No clubbing or cyanosis. No cords, erythema, or tenderness NEUROLOGICAL: Normal speech, cranial nerves intact, negative pronator drift, 5/ 5 strength in all 4 extremities, normal sensation to light touch in all 4 extremities, normal cerebellar exam, normal gait, normal reflexes and tone SKIN: Warm, Dry, normal turgor, no rashes or lesions noted.
[2017-12-10] MEDS ORDERED: methylPREDNISolone NA SUCC 125 MG/2 ML VIAL IVPB ONE (05:47)
[2017-12-10] MEDS ORDERED: ALBUTEROL SO4 2.5/IPRATROPIUM 0.5 INH SOL 3 ML VIAL.NEB. NEB ONE ×2 (05:50→06:07)
[2017-12-10] MEDS ORDERED: methylPREDNISolone NA SUCC 125 MG/2 ML VIAL ONE ×2 (05:50→06:07)
[2017-12-10] MEDS: ALBUTEROL SO4 2.5/IPRATROPIUM 0.5 INH SOL 3 ML VIAL.NEB. NEB SCH ×4 (06:13→06:46)
[2017-12-10 06:50] LABS: VENOUS PC02 51.8 mmHg (38-52); VENOUS PH 7.34 (7.32-7.42); VENOUS PO2 27.3 mmHg (28-48)
[2017-12-10 07:30] LABS: BASO % 1.2 % (0-2.0); EOS % 6.6 % (0-4.5); HEMATOCRIT 42.3 % (35.4-49); HEMOGLOBIN 13.6 GM/dL (11.7-16.9); LYMPH % 34.7 % (8-40); MCH 27.9 pg (25.7-33.7); MCHC 32.2 g/dl (32.0-35.9); MEAN CELL VOLUME 86.6 fl (80-96); MEAN PLT VOLUME 6.9 fl (7.5-11.1); MONO % 16.5 % (3.8-10.2); PLATELET COUNT 267 K/MM3 (134-434); RBC 4.89 M/mm3 (4.00-5.60); RDW 15.6 % (11.9-15.9); WHITE BLOOD COUNT 6.5 K/mm3 (4.0-10.0)
[2017-12-10 07:30] LABS: URINE APPEARANCE CLEAR; URINE BILIRUBIN NEGATIVE (<2.0 mg/dL); URINE BLOOD 1+ (NEGATIVE); URINE COLOR COLORLESS; URINE GLUCOSE (UA) NEGATIVE (NEGATIVE); URINE KETONE NEGATIVE (NEGATIVE); URINE LEUK ESTERASE NEGATIVE (NEGATIVE); URINE NITRITE NEGATIVE (NEGATIVE); URINE PROTEIN NEGATIVE (NEGATIVE); URINE UROBILINOGEN NEGATIVE mg/dL (0.2-1.0)
[2017-12-10 07:36] LABS: EPI CELLS RARE /HPF (FEW); URINE BACTERIA RARE /hpf (NONE SEEN); URINE MUCUS RARE
[2017-12-10 07:47] LABS: ALBUMIN 3.7 g/dl (3.4-5.0); ANION GAP 8 (8-16); BILIRUBIN,TOTAL 0.4 mg/dL (0.2-1.0); BLOOD UREA NITROGEN 9 mg/dL (7-18); CALCIUM 8.5 mg/dL (8.5-10.1); CHLORIDE 108 mmol/L (98-107); CO2 24 mmol/L (21-32); GLUCOSE,RANDOM 94 mg/dL (74-106); MAGNESIUM 2.1 mg/dL (1.8-2.4); PHOSPHOROUS 2.9 mg/dL (2.5-4.9); POTASSIUM 4.3 mmol/L (3.5-5.1); SGOT/AST 20 U/L (15-37); SGPT/ALT 19 U/L (12-78); SODIUM 140 mmol/L (136-145); TOT PROT 6.9 g/dl (6.4-8.2)
[2017-12-10 07:50] LABS: ALK PHOS 52 U/L (45-117); N-TERMINAL BNP 204.04 pg/ml (5-450)
--- NOTE | 2017-12-10 08:43 | PDOC ---
*Physical Exam - Vital Signs Last Vital Signs Temp Pulse Resp BP Pulse Ox 98.3 F 95 H 22 151/96 100 12/10/17 05:15 12/10/17 05:15 12/10/17 05:15 12/10/17 05:15 12/10/17 05:15 - Physical Exam Comments: 12/10/17 08:42 GENERAL: Awake, alert, and fully oriented, in no acute distress HEAD: No signs of trauma, normocephalic, atraumatic EYES: PERRLA, EOMI, sclera anicteric, conjunctiva clear ENT: Hearing grossly normal, nares patent, oropharynx clear without exudates. Moist mucosa NECK: Normal ROM, supple, no lymphadenopathy, JVD, or masses LUNGS: Exp. wheezing scant. Diminished breath sounds at bases. HEART: Regular rate and rhythm, normal S1 and S2, no murmurs, rubs or gallops, peripheral pulses normal and equal bilaterally. EXTREMITIES : Normal inspection, Normal range of motion, no edema. No clubbing or cyanosis. SKIN: Warm, Dry, normal turgor, no rashes or lesions noted Heart Score/ECG Review - History History: Slightly suspicious - Electrocardiogram EKG: Non specific repolarization disturbance - Age Age: >/= 65 - Risk Factors Risk Factors Heart Score: Yes Hx Hypercholesterolemia, Yes Hx Hypertension, Yes Hx Diabetes, Yes Smoking History, Yes Positive family hx of cardiac disease Based on the list above the patient has:: >/=3 risk factors or Hx atherosclerotic disease - Troponin Troponin: </= normal limit - Score Heart Score - Total: 5 ED Treatment Course - LABORATORY CBC & Chemistry Diagram: 12/10/17 07:08 12/10/17 07:08 - ADDITIONAL ORDERS Additional order review: Laboratory Results 12/10/17 12/10/17 12/10/17 07:08 06:40 06:20 VBG pH 7.34 POC VBG pCO2 51.8 POC VBG pO2 27.3 L Mixed VBG HCO3 27.4 H Sodium 140 Potassium 4.3 Chloride 108 H Carbon Dioxide 24 Anion Gap 8 BUN 9 D Creatinine 1.0 Creat Clearance w eGFR > 60 Random Glucose 94 D Calcium 8.5 Phosphorus 2.9 D Magnesium 2.1 D Total Bilirubin 0.4 AST 20 D ALT 19 D Alkaline Phosphatase 52 D Creatine Kinase 340 H Creatine Kinase Index 1.4 CK-MB (CK-2) 4.875 H Troponin I < 0.02 B-Natriuretic Peptide 204.04 Total Protein 6.9 Albumin 3.7 Urine Color Colorless Urine Appearance Clear Urine pH 7.0 D Ur Specific [place] 1.004 Urine Protein Negative Urine Glucose (UA) Negative Urine Ketones Negative Urine Blood 1+ H Urine Nitrite Negative Urine Bilirubin Negative Urine Urobilinogen Negative Ur Leukocyte Esterase Negative Urine WBC (Auto) 1 Urine RBC (Auto) 2 Ur Epithelial Cells Rare Urine Bacteria Rare Urine Mucus Rare 12/10/17 07:08 Influenza Types A,B Antigen (AQUILES) - Final Nasopharyngeal Swab - Final 12/10/17 07:08 RBC 4.89 MCV 86.6 MCHC 32.2 RDW 15.6 MPV 6.9 L Neutrophils % 41.0 L D Lymphocytes % 34.7 D Monocytes % 16.5 H D Eosinophils % 6.6 H D Basophils % 1.2 D - Medications Given in the ED: ED Medications Discontinued Medications Generic Name Dose Route Start Last Admin Trade Name Freq PRN Reason Stop Dose Admin Albuterol/Ipratropium 1 amp 12/10/17 06:00 12/10/17 06:46 Duoneb - NEB 12/10/17 06:46 1 amp Q15M PHOEBE Administration Methylprednisolone Sodium Succinate 125 mg 12/10/17 05:47 12/10/17 06:13 Solu-Medrol - IVPB 12/10/17 05:48 125 mg ONCE ONE Administration Medical Decision Making - Medical Decision Making 12/10/17 08:52 81 yo M with h/o HLD, CAD (s/p stents x2), a-flutter (on Coumadin), COPD ( intubated in the past), BPH, prostate CA (s/p radiation and surgery) who p/w Wilson x 3 days. Chronic stable productive cough at baseline with clear sputum production. However increased duoneb use x 3 days with no relief. No home 02 requirements. Pt. reports feeling fluid overloaded. Denies F/C, CP, N/V, abdominal pain, diarrhea, constipation, urinary complaints, lightheadedness, weakness, sensory changes. , or other sick symptoms. Continued tobacco use 1-2 cigarettes daily with [address] Barraza. 97 % 02 2 L NC. Received handoff from Dr. Abbott. ED course notable for ddx of COPD vs. CHF vs. PNA. Labs and imaging are pending. Patient received duonebs and methylpred. ED Course: 12/10/17 08:56 CBC: Unremarkable. WBC ~ 6.5 CK: 340 First Trop: Neg 12/10/17 08:56 12/10/17 10:00 BNP 204 12/10/17 10:03 EKG: NSR with absent STD, or EPI. Normal axis and interval duration. 12/10/17 10:[address] Barraza admits for Dr. Sinha. Cont'd Wilson, nml BNP, increased home O2 requirements, and 12/10/17 11:12 Dr. Sinha agrees with admission. Tele/obs. 12/10/17 11:15 CXR: Old apical disease. Hyperinflation. *DC/Admit/Observation/Transfer Diagnosis at time of Disposition: Dyspnea on exertion - Discharge Dispostion Disposition: HOME Condition at time of disposition: Stable Admit: Yes - Referrals Referrals: Armani Barraza MD [Primary Care Provider] - - Patient Instructions - Post Discharge Activity
[2017-12-10] MEDS ORDERED: SODIUM CHLORIDE 1,000 ML IV STA (12:08)
[2017-12-10] MEDS ORDERED: oxyCODONE HCL 5 MG TABLET PO PRN (12:18)
--- NOTE | 2017-12-10 12:28 | HP ---
Admitting History and Physical - Primary Care Physician PCP: Armani Barraza - Admission Chief Complaint: sob History of Present Illness: 81 year old male with PMH of CAD (s/p stents x2), aflutter (on Coumadin), COPD ( intubated in the past), BPH, prostate CA (s/p radiation and surgery) and hyperlipidemia presenting to the ED with exertional SOB over the past few days. Patient state that he has been more fatigued with activity over the last few days and has a stable baseline cough over the past few days as well productive of clear sputum. He feels as if he is fluid overloaded. He got his flu vaccine this year. Denies fevers, chills, nausea, vomiting, diarrhea, constipation, or other sick symptoms. Still smokes 1-2 cigarettes daily with 60 pack year smoking history pt found in copd exac pt well known to me from previous admission. pt admits did not do pet scan as was advised given steroids in er feels better pt seen in er denies cp. breathing better. denies abd pain. History Source: Patient Limitations to Obtaining History: No Limitations - Past Medical History Cardiovascular: Yes: AFIB, CAD, HTN Pulmonary: Yes: COPD Gastrointestinal: Yes: GERD Musculoskeletal: Yes: Chronic low back pain - Smoking History Smoking history: Current every day smoker Have you smoked in the past 12 months: No Aproximately how many cigarettes per day: 2 - Alcohol/Substance Use Hx Alcohol Use: No History of Substance Use: reports: None - Social History History of Recent Travel: No Home Medications - Allergies Allergies/Adverse Reactions: Allergies Allergy/AdvReac Type Severity Reaction Status Date / Time No Known Allergies Allergy Verified 12/10/17 05:15 - Home Medications Home Medications: Ambulatory Orders Albuterol [Ventolin] 17 gm IH ASDIR PRN 02/08/12 Tamsulosin HCl [Flomax -] 0.4 mg PO DAILY@0830 #30 cap.er.24h 08/24/14 Fluticasone/Salmeterol [Advair 250-50 Diskus] 1 each IH DAILY 07/20/17 Furosemide [Lasix -] 40 mg PO DAILY 07/20/17 Hydrocodone/Ibuprofen [Hydrocodone-Ibuprofen 7.5-200] 1 each PO TID PRN Ranitidine HCl [Zantac] 150 mg PO TID 07/20/17 Rosuvastatin Calcium [Crestor] 40 mg PO DAILY 07/20/17 Albuterol 2.5/Ipratropium 0.5 [Duoneb -] 1 amp NEB QIDR amp 07/22/17 Azithromycin [Zithromax Tri-Emery (3 DAYS) -] 500 mg PO DAILY #3 tablet 07/22/17 Budesonide/Formeterol Fumarate [SYMBICORT 80/4.5mcg -] 2 puff IH BID inhaler predniSONE [Deltasone -] 10 mg PO DAILY #30 tablet 07/22/17 Warfarin Na [Coumadin -] 5 mg PO DAILY@1800 12/10/17 Review of Systems - Review of Systems Constitutional: reports: No Symptoms Eyes: reports: No Symptoms HENT: reports: No Symptoms Neck: reports: No Symptoms Cardiovascular: reports: No Symptoms Respiratory: reports: SOB Gastrointestinal: reports: No Symptoms Genitourinary: reports: No Symptoms Musculoskeletal: reports: No Symptoms Neurological: reports: No Symptoms Psychiatric: reports: No Symptoms Physical Examination Vital Signs: Vital Signs Temperature 97.9 F 12/10/17 07:56 Pulse Rate 81 12/10/17 07:56 Respiratory Rate 18 12/10/17 07:56 Blood Pressure 133/77 12/10/17 07:56 O2 Sat by Pulse Oximetry (%) 97 12/10/17 07:56 Constitutional: Yes: No Distress, Calm Eyes: Yes: Conjunctiva Clear HENT: Yes: WNL Neck: Yes: Supple Cardiovascular: Yes: Regular Rate and Rhythm Respiratory: Yes: Poor Air Entry, Wheezes Gastrointestinal: Yes: Normal Bowel Sounds, Soft Edema: No Neurological: Yes: WNL, Alert Psychiatric: Yes: WNL Labs: CBC, BMP 12/10/17 07:08 12/10/17 07:08 Imaging - Results Chest X-ray: Report Reviewed EKG: Report Reviewed Problem List - Problems (1) Acute exacerbation of chronic obstructive pulmonary disease (COPD) Code(s): J44.1 - CHRONIC OBSTRUCTIVE PULMONARY DISEASE W (ACUTE) EXACERBATION (2) Atrial fibrillation Code(s): I48.91 - UNSPECIFIED ATRIAL FIBRILLATION (3) CAD (coronary artery disease) Code(s): I25.10 - ATHSCL HEART DISEASE OF [place] CORONARY ARTERY W/O ANG PCTRS (4) HTN (hypertension) Code(s): I10 - ESSENTIAL (PRIMARY) HYPERTENSION (5) Pulmonary hypertension Code(s): I27.20 - PULMONARY HYPERTENSION, UNSPECIFIED Assessment/Plan admit to med surg i/v steroids smoking cessation counselling provided nebulizer treatment inr pending coumadin per inr level continue other meds. again advised has to do pet scan as out pt will follow. discussed with er resident/ attending time spend 40 min
[2017-12-10] MEDS: ALBUTEROL SO4 0.083% IH SOL 2.5 MG/3 ML VIAL.NEB. NEB SCH ×3 (14:04→20:55)
[2017-12-10 14:47] VITALS: BMI 23.1
[2017-12-10] MEDS: RANITIDINE HCL 150 MG TABLET (FP) PO SCH ×2 (15:40→21:09)
[2017-12-10] MEDS: methylPREDNISolone NA SUCC 40 MG/1 ML VIAL IVPUSH SCH ×2 (15:52→20:53)
--- NOTE | 2017-12-10 15:55 | EKG ---
Test Reason : Blood Pressure : / mmHG Vent. Rate : 092 BPM Atrial Rate : 092 BPM P-R Int : 156 ms QRS Dur : 092 ms QT Int : 344 ms P-R-T Axes : 080 055 070 degrees QTc Int : 425 ms NORMAL SINUS RHYTHM LEFT ATRIAL ENLARGEMENT SEPTAL INFARCT (CITED ON OR BEFORE 11-FEB-2001) ABNORMAL ECG WHEN COMPARED WITH ECG OF 20-JUL-2017 10:56, NO SIGNIFICANT CHANGE WAS FOUND Confirmed by MD MATEUS, SAMEERA ([id number]) on 12/10/2017 3:55:39 PM Referred By: Confirmed By:SAMEERA IGNACIO MD
[2017-12-10] MEDS ORDERED: PT OWN MED DRAWER 7, Y5N ONE (17:52)
[2017-12-10 19:20] LABS: INR 1.44 (0.82-1.09); PROTHROMBIN TIME (PATIENT) 16.3 SEC (9.98-11.88)
[2017-12-10] MEDS: WARFARIN NA 5 MG TABLET (UD) PO SCH (20:52)
[2017-12-10] MEDS: BUDESONIDE/FORMETEROL FUMARATE 160/4.5 mcg INHALER IH SCH (21:09)
[2017-12-10] MEDS: DOCUSATE SODIUM 100 MG CAPSULE (FP) PO SCH (21:09)
[2017-12-10] MEDS ORDERED: WARFARIN NA 5 MG TABLET (UD) PO ONE (23:00)
[2017-12-11] MEDS: methylPREDNISolone NA SUCC 40 MG/1 ML VIAL IVPUSH SCH ×4 (02:55→21:49)
[2017-12-11] MEDS: RANITIDINE HCL 150 MG TABLET (FP) PO SCH ×3 (06:02→21:54)
[2017-12-11] MEDS: ALBUTEROL SO4 0.083% IH SOL 2.5 MG/3 ML VIAL.NEB. NEB SCH ×4 (07:56→20:41)
[2017-12-11 08:13] LABS: CHLORIDE 110 mmol/L (98-107); POTASSIUM 4.2 mmol/L (3.5-5.1); SODIUM 142 mmol/L (136-145)
[2017-12-11 08:19] LABS: BASO % 0.2 % (0-2.0); HEMATOCRIT 40.1 % (35.4-49); INR 1.19 (0.82-1.09); LYMPH % 18.7 % (8-40); MCH 27.8 pg (25.7-33.7); MCHC 32.3 g/dl (32.0-35.9); MONO % 5.7 % (3.8-10.2); NEUT % 75.4 % (42.8-82.8); PLATELET COUNT 284 K/MM3 (134-434); PROTHROMBIN TIME (PATIENT) 13.4 SEC (9.98-11.88); RBC 4.66 M/mm3 (4.00-5.60); RDW 15.3 % (11.9-15.9); WHITE BLOOD COUNT 3.9 K/mm3 (4.0-10.0)
[2017-12-11] MEDS: TAMSULOSIN HCL 0.4 MG CAP.ER.24H (FP) PO SCH (08:36)
[2017-12-11 09:09] LABS: ALBUMIN 3.3 g/dl (3.4-5.0); ALK PHOS 46 U/L (45-117); ANION GAP 9 (8-16); BILIRUBIN,TOTAL 0.4 mg/dL (0.2-1.0); BLOOD UREA NITROGEN 15 mg/dL (7-18); CALCIUM 8.5 mg/dL (8.5-10.1); CO2 23 mmol/L (21-32); GLUCOSE,RANDOM 142 mg/dL (74-106); MAGNESIUM 2.2 mg/dL (1.8-2.4); SGOT/AST 14 U/L (15-37); SGPT/ALT 16 U/L (12-78)
[2017-12-11] MEDS: BUDESONIDE/FORMETEROL FUMARATE 160/4.5 mcg INHALER IH SCH ×2 (10:18→21:55)
[2017-12-11] MEDS: PANTOPRAZOLE 20 MG TABLET (FP) PO SCH (10:18)
[2017-12-11] MEDS: DOCUSATE SODIUM 100 MG CAPSULE (FP) PO SCH ×2 (10:18→21:54)
[2017-12-11] MEDS: FUROSEMIDE 40 MG TABLET (FP) PO SCH (10:18)
--- NOTE | 2017-12-11 11:28 | PN ---
Progress Note (short form) - Note Progress Note: pt seen/ examined feels little better still coughing afebrile denies cp. Vital Signs Temp 97.3 F L 12/11/17 10:53 Pulse 99 H 12/11/17 10:53 Resp 18 12/11/17 10:53 BP 134/61 12/11/17 10:53 Pulse Ox 97 12/10/17 21:00 Intake & Output 12/10/17 12/10/17 12/11/17 11:59 23:59 11:59 Intake Total 400 Balance 400 Weight 165 lb 175 lb Intake: Oral 400 Other: Voiding Method Urinal Urinal Urinal Height 6 ft 1 in 6 ft 1 in Body Mass Index (BMI) 21.7 23.1 Weight Measurement Method Stated by Patient Weight Measurement Method Est/Stated by Patient Active Medications Albuterol Sulfate (Ventolin 0.083% Nebulizer Soln -) 1 amp NEB RQID [facility] Last Admin: 12/11/17 11:19 Dose: 1 amp Budesonide/Formoterol Fumarate (Symbicort 160/4.5mcg -) 2 puff IH BID [facility] Last Admin: 12/11/17 10:18 Dose: 2 puff Docusate Sodium (Colace -) 100 mg PO BID [facility] Last Admin: 12/11/17 10:18 Dose: 100 mg Enoxaparin Sodium (Lovenox -) 80 mg SQ Q12H [facility] Furosemide (Lasix -) 40 mg PO DAILY [facility] Last Admin: 12/11/17 10:18 Dose: 40 mg Methylprednisolone Sodium Succinate (Solu-Medrol -) 60 mg IVPUSH Q6H-IV [facility] Last Admin: 12/11/17 08:36 Dose: 60 mg Oxycodone HCl (Roxicodone -) 5 mg PO Q6H PRN PRN Reason: PAIN LEVEL 6-10 Pantoprazole Sodium (Protonix -) 20 mg PO DAILY [facility] Last Admin: 12/11/17 10:18 Dose: 20 mg Ranitidine HCl (Zantac -) 150 mg PO TID [facility] Last Admin: 12/11/17 06:02 Dose: 150 mg Rosuvastatin Calcium (Crestor -) 40 mg PO HS [facility] Tamsulosin HCl (Flomax -) 0.4 mg PO DAILY@0830 [facility] Last Admin: 04/02/18 08:36 Dose: 0.4 mg Warfarin Sodium (Coumadin -) 5 mg PO DAILY@1800 [facility] Last Admin: 12/10/17 20:52 Dose: 5 mg Warfarin Sodium (Coumadin -) 5 mg PO ONCE@1800 ONE Stop: 12/11/17 18:01 CBC, BMP 12/11/17 06:30 12/11/17 06:30 Microbiology 12/10/17 06:40 Urine Culture - Final Urine - Urine Clean Catch NO GROWTH OBTAINED 12/10/17 07:08 Influenza Types A,B Antigen (AQUILES) - Final Nasopharyngeal Swab - Final Physical Examination Constitutional: Yes: No Distress, Calm/comfortable Eyes: Yes: Conjunctiva Clear HENT: Yes: WNL Neck: Yes: Supple Cardiovascular: Yes: Regular Rate and Rhythm Respiratory: Yes: Poor Air Entry, Wheezes-- improved air entry Gastrointestinal: Yes: Normal Bowel Sounds, Soft, non tender Edema: No Neurological: Yes: WNL, Alert Psychiatric: Yes: WNL Imaging - Results Chest X-ray: Report Reviewed EKG: Report Reviewed Assessment/Plan copd exac i/v steroids smoking cessation counselling provided again nebulizer treatment coumadin per inr level subtherapeutic will overlapp with lovenox till therapeutic continue other meds. will follow Problem List - Problems (1) Acute exacerbation of chronic obstructive pulmonary disease (COPD) Code(s): J44.1 - CHRONIC OBSTRUCTIVE PULMONARY DISEASE W (ACUTE) EXACERBATION (2) Atrial fibrillation Code(s): I48.91 - UNSPECIFIED ATRIAL FIBRILLATION (3) CAD (coronary artery disease) Code(s): I25.10 - ATHSCL HEART DISEASE OF [place] CORONARY ARTERY W/O ANG PCTRS (4) HTN (hypertension) Code(s): I10 - ESSENTIAL (PRIMARY) HYPERTENSION (5) Pulmonary hypertension Code(s): I27.20 - PULMONARY HYPERTENSION, UNSPECIFIED
[2017-12-11] MEDS: ENOXAPARIN NA (PORCINE) 80 MG/0.8 ML DISP.SYRIN SQ SCH ×2 (12:24→21:54)
[2017-12-11] MEDS ORDERED: WARFARIN NA 5 MG TABLET (UD) PO ONE (18:00)
[2017-12-11] MEDS: WARFARIN NA 5 MG TABLET (UD) PO SCH (18:09)
[2017-12-11] MEDS: ROSUVASTATIN CA 20 MG TABLET (FP) PO SCH (21:55)
[2017-12-12] MEDS: methylPREDNISolone NA SUCC 40 MG/1 ML VIAL IVPUSH SCH ×3 (03:46→18:41)
[2017-12-12] MEDS: guaiFENesin/D-METHORPHAN HB 10 ML UNIT-DOSE CUPS PO PRN ×2 (04:36→21:51)
[2017-12-12] MEDS: RANITIDINE HCL 150 MG TABLET (FP) PO SCH ×3 (05:48→21:52)
--- NOTE | 2017-12-12 06:30 | HOSP ---
Subjective - Review of Symptoms Events since last encounter: Hospitalist Encounter Notified by RN that the patient reports having SOB secondary to constant coughing Subjective: Arrived to bedside, patient is awake, alert, and oriented reports SOB and persistent cough VS- T 98, P 91, R 20, BP 140/71, Spo2 97% 2L Plan Guaifenesin prn ordered Continue current regimen Pulmonary: Yes: Dyspnea, Cough Physical Examination Vital Signs: Vital Signs Temperature 98 F 12/12/17 04:15 Pulse Rate 91 H 12/12/17 04:15 Respiratory Rate 20 12/12/17 04:15 Blood Pressure 140/71 12/12/17 04:15 O2 Sat by Pulse Oximetry (%) 93 L 12/11/17 20:48 Constitutional: Yes: Well Nourished, No Distress, Calm Eyes: Yes: WNL, Conjunctiva Clear, EOM Intact, PERRL HENT: Yes: WNL, Atraumatic, Normocephalic Neck: Yes: WNL, Supple, Trachea Midline Cardiovascular: Yes: WNL, Regular Rate and Rhythm, S1, S2 Respiratory: Yes: Diminished, On Nasal O2, Rhonchi Gastrointestinal: Yes: WNL, Normal Bowel Sounds, Soft Peripheral Pulses WNL: Yes Neurological: Yes: WNL, Alert, Oriented ...Motor Strength: WNL Psychiatric: Yes: WNL, Alert, Oriented Labs: CBC, BMP 12/11/17 06:30 12/11/17 06:30 Current Medications Generic Name Dose Route Start Last Admin Trade Name Freq PRN Reason Stop Dose Admin Albuterol Sulfate 1 amp 12/10/17 20:00 12/11/17 20:41 Ventolin 0.083% Nebulizer Soln - NEB 1 amp RQID [facility] Administration Budesonide/Formoterol Fumarate 2 puff 12/10/17 22:00 12/11/17 21:55 Symbicort 160/4.5mcg - IH 2 puff BID [facility] Administration Docusate Sodium 100 mg 12/10/17 22:00 12/11/17 21:54 Colace - PO 100 mg BID [facility] Administration Enoxaparin Sodium 80 mg 12/11/17 12:15 12/11/17 21:54 Lovenox - SQ 80 mg BID [facility] Administration Furosemide 40 mg 12/11/17 10:00 12/11/17 10:18 Lasix - PO 40 mg DAILY [facility] Administration Guaifenesin 10 ml 12/12/17 04:29 12/12/17 04:36 Robitussin Dm - PO 10 ml Q6H PRN Administration COUGH Methylprednisolone Sodium Succinate 60 mg 12/10/17 15:00 12/12/17 03:46 Solu-Medrol - IVPUSH 60 mg Q6H-IV [facility] Administration Oxycodone HCl 5 mg 12/10/17 12:18 Roxicodone - PO Q6H PRN PAIN LEVEL 6-10 Pantoprazole Sodium 20 mg 12/11/17 10:00 12/11/17 10:18 Protonix - PO 20 mg DAILY [facility] Administration Ranitidine HCl 150 mg 12/10/17 14:00 12/12/17 05:48 Zantac - PO 150 mg TID [facility] Administration Rosuvastatin Calcium 40 mg 12/11/17 22:00 12/11/17 21:55 Crestor - PO 40 mg HS [facility] Administration Tamsulosin HCl 0.4 mg 12/11/17 08:30 12/11/17 08:36 Flomax - PO 0.4 mg DAILY@0830 [facility] Administration Warfarin Sodium 5 mg 12/10/17 18:00 12/11/17 18:09 Coumadin - PO 5 mg DAILY@1800 [facility] Administration Last Vital Signs Temp Pulse Resp BP Pulse Ox 98 F 91 H 20 140/71 93 L 12/12/17 04:15 12/12/17 04:15 12/12/17 04:15 12/12/17 04:15 12/11/17 20:48 Hospitalist Encounter Assessment: 81 year old male with PMH of CAD (s/p stents x2), aflutter (on Coumadin), COPD ( intubated in the past), BPH, prostate CA (s/p radiation and surgery) and hyperlipidemia presenting to the ED with exertional SOB over the past few days. Admitted for COPD Exacerbation Outcome: Patient at bedside resting comfortably, reports coughing has subsided, and that his breathing has improved.
[2017-12-12] MEDS: ALBUTEROL SO4 0.083% IH SOL 2.5 MG/3 ML VIAL.NEB. NEB SCH ×4 (08:55→20:32)
[2017-12-12] MEDS: FUROSEMIDE 40 MG TABLET (FP) PO SCH (09:48)
[2017-12-12] MEDS: TAMSULOSIN HCL 0.4 MG CAP.ER.24H (FP) PO SCH (09:48)
[2017-12-12] MEDS: PANTOPRAZOLE 20 MG TABLET (FP) PO SCH (09:48)
[2017-12-12] MEDS: DOCUSATE SODIUM 100 MG CAPSULE (FP) PO SCH ×2 (09:48→21:52)
[2017-12-12] MEDS: ENOXAPARIN NA (PORCINE) 80 MG/0.8 ML DISP.SYRIN SQ SCH ×2 (09:49→21:53)
--- NOTE | 2017-12-12 10:54 | PN ---
Progress Note, Physician Chief Complaint: Has productive cough No SOB - Current Medication List Current Medications: Active Medications Albuterol Sulfate (Ventolin 0.083% Nebulizer Soln -) 1 amp NEB RQID [facility] Last Admin: 12/12/17 08:55 Dose: 1 amp Budesonide/Formoterol Fumarate (Symbicort 160/4.5mcg -) 2 puff IH BID [facility] Last Admin: 12/11/17 21:55 Dose: 2 puff Docusate Sodium (Colace -) 100 mg PO BID [facility] Last Admin: 12/12/17 09:48 Dose: 100 mg Enoxaparin Sodium (Lovenox -) 80 mg SQ BID [facility] Last Admin: 12/12/17 09:49 Dose: 80 mg Furosemide (Lasix -) 40 mg PO DAILY [facility] Last Admin: 12/12/17 09:48 Dose: 40 mg Guaifenesin (Robitussin Dm -) 10 ml PO Q6H PRN PRN Reason: COUGH Last Admin: 12/12/17 04:36 Dose: 10 ml Methylprednisolone Sodium Succinate (Solu-Medrol -) 60 mg IVPUSH Q6H-IV [facility] Last Admin: 12/12/17 09:49 Dose: 60 mg Oxycodone HCl (Roxicodone -) 5 mg PO Q6H PRN PRN Reason: PAIN LEVEL 6-10 Pantoprazole Sodium (Protonix -) 20 mg PO DAILY [facility] Last Admin: 12/12/17 09:48 Dose: 20 mg Ranitidine HCl (Zantac -) 150 mg PO TID [facility] Last Admin: 12/12/17 05:48 Dose: 150 mg Rosuvastatin Calcium (Crestor -) 40 mg PO HS [facility] Last Admin: 12/11/17 21:55 Dose: 40 mg Tamsulosin HCl (Flomax -) 0.4 mg PO DAILY@0830 [facility] Last Admin: 12/12/17 09:48 Dose: 0.4 mg Warfarin Sodium (Coumadin -) 5 mg PO DAILY@1800 [facility] Last Admin: 12/11/17 18:09 Dose: 5 mg - Objective Vital Signs: Vital Signs Temperature 98 F 12/12/17 10:02 Pulse Rate 94 H 12/12/17 10:02 Respiratory Rate 18 12/12/17 10:02 Blood Pressure 124/64 12/12/17 10:02 O2 Sat by Pulse Oximetry (%) 93 L 12/11/17 20:48 Constitutional: Yes: No Distress Cardiovascular: Yes: Pulse Irregular Respiratory: Yes: Diminished, Rhonchi Gastrointestinal: Yes: Normal Bowel Sounds, Soft. No: Tenderness Edema: No Labs: CBC, BMP 12/11/17 06:30 12/11/17 06:30 INR, PTT INR 1.19 (0.82-1.09) H 12/11/17 06:30 Problem List - Problems (1) Dyspnea on exertion Code(s): R06.09 - OTHER FORMS OF DYSPNEA (2) Pulmonary hypertension Code(s): I27.20 - PULMONARY HYPERTENSION, UNSPECIFIED (3) Acute exacerbation of chronic obstructive pulmonary disease (COPD) Code(s): J44.1 - CHRONIC OBSTRUCTIVE PULMONARY DISEASE W (ACUTE) EXACERBATION (4) Atrial fibrillation Code(s): I48.91 - UNSPECIFIED ATRIAL FIBRILLATION (5) CAD (coronary artery disease) Code(s): I25.10 - ATHSCL HEART DISEASE OF [place] CORONARY ARTERY W/O ANG PCTRS (6) COPD (chronic obstructive pulmonary disease) Code(s): J44.9 - CHRONIC OBSTRUCTIVE PULMONARY DISEASE, UNSPECIFIED (7) HTN (hypertension) Code(s): I10 - ESSENTIAL (PRIMARY) HYPERTENSION Assessment/Plan PLAN Sputum culture -- start IV Ceftriaxone -- taper Solumedrol -- nebs as needed -- OOB daily -- INR subtherapeutic-- on Lovenox and Coumadin -- increase Coumadin dose
[2017-12-12] MEDS ORDERED: WARFARIN NA 7.5 MG TABLET (FP) PO SCH (11:07)
[2017-12-12] MEDS ORDERED: DEXTROSE 5%-WATER - 50 ML IVPB ONE ×2 (14:31→14:35)
[2017-12-12] MEDS ORDERED: cefTRIAXone SODIUM 1 GM VIAL ONE ×2 (14:31→14:35)
[2017-12-12] MEDS: CEFTRIAXONE 1 GM in DEXTROSE 5%-WATER - 50 ML IVPB SCH (14:44)
[2017-12-12] MEDS: BUDESONIDE/FORMETEROL FUMARATE 160/4.5 mcg INHALER IH SCH ×2 (14:45→21:54)
[2017-12-12] MEDS: ROSUVASTATIN CA 20 MG TABLET (FP) PO SCH (21:52)
[2017-12-13] MEDS: methylPREDNISolone NA SUCC 40 MG/1 ML VIAL IVPUSH SCH ×2 (01:07→10:22)
[2017-12-13 05:53] VITALS: BP 119/58; PULSE 98; TEMP 97.8
[2017-12-13] MEDS: RANITIDINE HCL 150 MG TABLET (FP) PO SCH (06:30)
[2017-12-13] MEDS: ALBUTEROL SO4 0.083% IH SOL 2.5 MG/3 ML VIAL.NEB. NEB SCH ×2 (07:15→11:36)
[2017-12-13 08:31] LABS: PROTHROMBIN TIME (PATIENT) 58.8 SEC (9.98-11.88)
[2017-12-13 08:33] LABS: INR 5.2 (0.82-1.09)
[2017-12-13] MEDS ORDERED: DEXTROSE 5%-WATER - 50 ML IVPB ONE ×2 (09:38→09:39)
[2017-12-13] MEDS ORDERED: cefTRIAXone SODIUM 1 GM VIAL ONE ×2 (09:38→09:39)
[2017-12-13] MEDS: PANTOPRAZOLE 20 MG TABLET (FP) PO SCH (10:22)
[2017-12-13] MEDS: TAMSULOSIN HCL 0.4 MG CAP.ER.24H (FP) PO SCH (10:22)
[2017-12-13] MEDS: FUROSEMIDE 40 MG TABLET (FP) PO SCH ×2 (10:22→10:37)
[2017-12-13] MEDS: ENOXAPARIN NA (PORCINE) 80 MG/0.8 ML DISP.SYRIN SQ SCH (10:23)
[2017-12-13] MEDS: CEFTRIAXONE 1 GM in DEXTROSE 5%-WATER - 50 ML IVPB SCH (10:23)
[2017-12-13] MEDS: DOCUSATE SODIUM 100 MG CAPSULE (FP) PO SCH (10:23)
[2017-12-13] MEDS: BUDESONIDE/FORMETEROL FUMARATE 160/4.5 mcg INHALER IH SCH (10:27)
--- NOTE | 2017-12-13 11:06 | PN ---
Progress Note, Physician - Current Medication List Current Medications: Active Medications Albuterol Sulfate (Ventolin 0.083% Nebulizer Soln -) 1 amp NEB RQID [facility] Last Admin: 12/13/17 07:15 Dose: 1 amp Budesonide/Formoterol Fumarate (Symbicort 160/4.5mcg -) 2 puff IH BID [facility] Last Admin: 12/13/17 10:27 Dose: 2 puff Docusate Sodium (Colace -) 100 mg PO BID [facility] Last Admin: 12/13/17 10:23 Dose: 100 mg Enoxaparin Sodium (Lovenox -) 80 mg SQ BID [facility] Last Admin: 12/13/17 10:23 Dose: Not Given Furosemide (Lasix -) 40 mg PO DAILY [facility] Last Admin: 12/13/17 10:37 Dose: Not Given Guaifenesin (Robitussin Dm -) 10 ml PO Q6H PRN PRN Reason: COUGH Last Admin: 12/12/17 21:51 Dose: 10 ml Ceftriaxone Sodium 1 gm/ (Dextrose) 50 mls @ 100 mls/hr IVPB DAILY [facility] Last Admin: 12/13/17 10:23 Dose: 100 mls/hr Methylprednisolone Sodium Succinate (Solu-Medrol -) 40 mg IVPUSH Q8H-IV [facility] Last Admin: 12/13/17 10:22 Dose: 40 mg Oxycodone HCl (Roxicodone -) 5 mg PO Q6H PRN PRN Reason: PAIN LEVEL 6-10 Pantoprazole Sodium (Protonix -) 20 mg PO DAILY [facility] Last Admin: 12/13/17 10:22 Dose: 20 mg Ranitidine HCl (Zantac -) 150 mg PO TID [facility] Last Admin: 12/13/17 06:30 Dose: 150 mg Rosuvastatin Calcium (Crestor -) 40 mg PO HS [facility] Last Admin: 12/12/17 21:52 Dose: 40 mg Tamsulosin HCl (Flomax -) 0.4 mg PO DAILY@0830 [facility] Last Admin: 12/13/17 10:22 Dose: 0.4 mg Warfarin Sodium (Coumadin -) 7.5 mg PO DAILY@1800 [facility] Last Admin: 12/12/17 18:41 Dose: 7.5 mg - Objective Vital Signs: Vital Signs Temperature 97.8 F 12/13/17 05:00 Pulse Rate 98 H 12/13/17 05:00 Respiratory Rate 20 12/13/17 05:00 Blood Pressure 119/58 12/13/17 05:00 O2 Sat by Pulse Oximetry (%) 96 12/12/17 20:47 Labs: CBC, BMP 12/11/17 06:30 12/11/17 06:30 INR, PTT INR 5.20 (0.82-1.09) H* D 12/13/17 06:00 Problem List - Problems (1) Dyspnea on exertion Code(s): R06.09 - OTHER FORMS OF DYSPNEA (2) Pulmonary hypertension Code(s): I27.20 - PULMONARY HYPERTENSION, UNSPECIFIED (3) Acute exacerbation of chronic obstructive pulmonary disease (COPD) Code(s): J44.1 - CHRONIC OBSTRUCTIVE PULMONARY DISEASE W (ACUTE) EXACERBATION (4) Atrial fibrillation Code(s): I48.91 - UNSPECIFIED ATRIAL FIBRILLATION (5) CAD (coronary artery disease) Code(s): I25.10 - ATHSCL HEART DISEASE OF [place] CORONARY ARTERY W/O ANG PCTRS (6) COPD (chronic obstructive pulmonary disease) Code(s): J44.9 - CHRONIC OBSTRUCTIVE PULMONARY DISEASE, UNSPECIFIED (7) HTN (hypertension) Code(s): I10 - ESSENTIAL (PRIMARY) HYPERTENSION
--- NOTE | 2017-12-13 11:28 | DS ---
Physical Examination Vital Signs: Vital Signs Temperature 97.8 F 12/13/17 05:00 Pulse Rate 98 H 12/13/17 05:00 Respiratory Rate 20 12/13/17 05:00 Blood Pressure 119/58 12/13/17 05:00 O2 Sat by Pulse Oximetry (%) 96 12/12/17 20:47 Labs: CBC, BMP 12/11/17 06:30 12/11/17 06:30 Discharge Summary Reason For Visit: DYSPNEA ON EXCERTION Current Active Problems Dyspnea on exertion (Acute) Pulmonary hypertension (Acute) Condition: Stable - Instructions Diet, Activity, Other Instructions: hold coumadin 12/13 and 12/14, go to Dr barraza office on 12/15 to check INR Referrals: Armani Barraza MD [Primary Care Provider] - Disposition: HOME - Home Medications Comprehensive Discharge Medication List: Ambulatory Orders Albuterol [Ventolin] 17 gm IH ASDIR PRN 02/08/12 Tamsulosin HCl [Flomax -] 0.4 mg PO DAILY@0830 #30 cap.er.24h 08/24/14 Fluticasone/Salmeterol [Advair 250-50 Diskus] 1 each IH DAILY 07/20/17 Furosemide [Lasix -] 40 mg PO DAILY 07/20/17 Hydrocodone/Ibuprofen [Hydrocodone-Ibuprofen 7.5-200] 1 each PO TID PRN Ranitidine HCl [Zantac] 150 mg PO TID 07/20/17 Rosuvastatin Calcium [Crestor] 40 mg PO DAILY 07/20/17 Albuterol 2.5/Ipratropium 0.5 [Duoneb -] 1 amp NEB QIDR amp 07/22/17 Cefuroxime Axetil [Ceftin -] 500 mg PO Q12H #14 tablet 12/13/17 Prednisone See Taper PO DAILY #90 tablet 12/13/17
== END 2017-12-13 12:48 | disposition home or self-care (01) | DRG 191 ==
LOC: JER 04:58 → JERBED 11:14 → J7W 14:44
PROVIDERS: ADMIT Internal Medicine; ATTEND Internal Medicine
DX: J44.1 Chronic obstructive pulmonary disease with (acute) exacerbation (principal); I48.92 Unspecified atrial flutter; I25.10 Atherosclerotic heart disease of native coronary artery without angina pectoris; Z79.01 Long term (current) use of anticoagulants; N40.0 Benign prostatic hyperplasia without lower urinary tract symptoms; E78.5 Hyperlipidemia, unspecified; C61 Malignant neoplasm of prostate; F17.210 Nicotine dependence, cigarettes, uncomplicated; I48.91 Unspecified atrial fibrillation; I27.20 Pulmonary hypertension, unspecified
CPT/HCPCS: 36415; 71045-TC-FY; 80053; 81003; 81015; 82550; 82553; 82803; 83735; 83880; 84100; 84484; 85025; 85610; 87086; 87804; 93005; 93010; 94640; 99284-25

== ENCOUNTER 2018-12-23 17:36 | Observation (INO) | payer OTHER ==
--- NOTE | 2018-12-23 18:17 | PDOC ---
History of Present Illness - General Chief Complaint: Respiratory Stated Complaint: ASTHMA Time Seen by Provider: 12/23/18 18:05 History Source: Patient - History of Present Illness Initial Comments: 12/23/18 19:02 The patient is an 82 year old male with a PMH of CAD (s/p MD x2, s/p multiple stents), COPD (not on home O2), BPH, Prostate CA, HLD who presents c/o 1 day h/ o shortness of breath. Endorses intermittent palpitations and mild pressure like non-radiation chest pain. Symptoms started yesterday evening when patient was trying to sleep and persisted overnight and worsened today prompting him to come to the ED. Denies any increased leg swelling, orthopnea, fevers/chills. NKDA Surgical: Cardiac Stent x2 Social: 60 ppd smoker (smoking since age 11) PMD: Dr. Barraza As per EMR, patient evaluated in our ED in 12/2017 for exertional shortness of breath and was admitted for acute COPD exacerbation. Past History - Past Medical History Allergies/Adverse Reactions: Allergies Allergy/AdvReac Type Severity Reaction Status Date / Time No Known Allergies Allergy Verified 12/23/18 17:48 Home Medications: Ambulatory Orders Tamsulosin HCl [Flomax -] 0.4 mg PO DAILY@0830 #30 cap.er.24h 08/24/14 Fluticasone/Salmeterol [Advair 250-50 Diskus] 1 each IH DAILY 07/20/17 Furosemide [Lasix -] 40 mg PO DAILY 07/20/17 Hydrocodone/Ibuprofen [Hydrocodone-Ibuprofen 7.5-200] 1 each PO TID PRN Ranitidine HCl [Zantac] 150 mg PO TID 07/20/17 Rosuvastatin Calcium [Crestor] 40 mg PO DAILY 07/20/17 Albuterol 2.5/Ipratropium 0.5 [Duoneb -] 1 amp NEB QIDR amp 07/22/17 Cefuroxime Axetil [Ceftin -] 500 mg PO Q12H #14 tablet 12/13/17 Anemia: No Asthma: Yes Cancer: Yes (H/O PROSTATE) Cardiac Disorders: Yes (stents, MD x 2) COPD: Yes Diabetes: Yes Disorders: Yes (RETENTION) HTN: Yes Hypercholesterolemia: Yes - Surgical History Cardiac Surgery: Yes (STENT) - Suicide/Smoking/Psychosocial Hx Smoking Status: Yes Smoking History: Current some day smoker Have you smoked in the past 12 months: No Number of Cigarettes Smoked Daily: 2 Information on smoking cessation initiated: No 'Breaking Loose' booklet given: 08/22/14 Hx Alcohol Use: No Drug/Substance Use Hx: No Substance Use Type: None Review of Systems - Review of Systems Constitutional: No: Chills, Fever Cardiac (ROS): Yes: Chest Pain ABD/GI: No: Constipated, Diarrhea, Nausea, Vomiting : No: Burning, Dysuria *Physical Exam - Vital Signs Last Vital Signs Temp Pulse Resp BP Pulse Ox 98 F 80 18 90/59 L 97 12/23/18 17:44 12/23/18 17:44 12/23/18 17:44 12/23/18 17:44 12/23/18 17:44 - Physical Exam General Appearance: Yes: Nourished, Appropriately Dressed HEENT: positive: Normal Voice, Hearing Grossly Normal Neck: positive: Normal Thyroid, Supple Respiratory/Chest: positive: Normal Breath Sounds, Other (mild scattered wheezes ) Cardiovascular: positive: S1, S2, Tachycardia. negative: Edema, Murmur Vascular Pulses: Dorsalis-Pedis (R): 2+, Doralis-Pedis (L): 2+ Gastrointestinal/Abdominal: positive: Normal Bowel Sounds, Soft Extremity: positive: Normal Capillary Refill, Normal Inspection. negative: Pedal Edema, Calf Tenderness Integumentary: positive: Dry, Warm Heart Score/ECG Review - ECG Impressions Comment:: 12/23/18 20:36 SR HR 139 with PVC - no EPI/STD ED Treatment Course - LABORATORY CBC & Chemistry Diagram: 12/23/18 18:05 12/23/18 18:05 Medical Decision Making - Medical Decision Making 12/23/18 19:18 82 year old male with chest pain and shortness of breath. Tachycardic with intermittent runs of AFlutter/Afib with RVR to 140's-150's. Frontal diagnosis : r/o ACS, CHF, PNA, Bronchitis. Will obtain cardiac enzymes, CXR, basic labs. Low threshold for rate control if AFlutter persists 12/23/18 20:07 Troponin (-) x1 Heart Score 4 EKG non-ischemic as documented in EKG section of EMR 12/23/18 20:21 Case d/w Dr. Stockton (Cardiology) - agrees w/rate control; suggests Metoprolol ( 25 mg); Dr. Cardenas will evaluat patient tomorrow. Case d/w KIERSTEN De La Paz - will admit OBS Tele 12/23/18 20:56 Patient counseled on plan of care, amenable to admission 12/23/18 21:45 Intermittent 2-3 minute episode of hypoxia (SpO2 70's) - resolved; close monitoring 12/23/18 22:52 Patient breathing comfortably on RA Clinical Impression: Intermittent AFlutter with RVR *DC/Admit/Observation/Transfer Diagnosis at time of Disposition: Shortness of breath - Discharge Dispostion Condition at time of disposition: Fair Decision to Admit order: Yes - Referrals - Patient Instructions - Post Discharge Activity
[2018-12-23] MEDS ORDERED: NITROGLYCERIN 2% OINTMENT - 1GM PACKET TD ONE ×2 (18:26→18:28)
[2018-12-23 18:42] LABS: BASO % 1.1 % (0-2.0); EOS % 6.9 % (0-4.5); HEMATOCRIT 44.3 % (35.4-49); HEMOGLOBIN 14.5 GM/dL (11.7-16.9); LYMPH % 31.1 % (8-40); MCH 28.1 pg (25.7-33.7); MCHC 32.7 g/dl (32.0-35.9); MEAN PLT VOLUME 7.2 fl (7.5-11.1); MONO % 19.3 % (3.8-10.2); NEUT % 41.6 % (42.8-82.8); PLATELET COUNT 233 K/MM3 (134-434); RBC 5.16 M/mm3 (4.00-5.60); RDW 15.1 % (11.9-15.9); WHITE BLOOD COUNT 7.4 K/mm3 (4.0-10.0)
--- NOTE | 2018-12-23 18:46 | PDOC ---
Attending Attestation - Resident Resident Name: Monae Zimmerman - ED Attending Attestation I have performed the following: I have examined & evaluated the patient, The case was reviewed & discussed with the resident, I agree w/resident's findings & plan, Exceptions are as noted - HPI HPI: 12/23/18 18:42 82y M hx of CAD sp stents, aflutter, (on coumadin), COPD, BPH, prostate ca sp radiation therapy, HL, presents with complaint of sob/cough/congestion over the past few days. Pt also endorses intermittent palpatitations that gets worse when he moves around. Pt endorss some mild chest pain, denies any leg sewlling , hemoptysis, abd pain, back pain, fever/chills, orthopnea. Allergies: NKDA Past surgical history: stents x 2 Social history: everyday smoker since age 11 PCP: Dr. Barraza Upon arrival pts vitals were normal, but he was noted to have a run of aflutter/ fib to the 140s-150s that spontaneously resolved. ddx - viral illness, pna, acs, chf 12/23/18 19:07 - Physicial Exam PE: 12/23/18 19:07 GENERAL: The patient is awake, alert, and fully oriented, Nontoxic - in no acute distress. HEAD: Normocephalic, atraumatic. EYES: extraocular movements intact, sclera anicteric, conjunctiva clear. ENT: Normal voice, Moist mucous membranes. NECK: Normal range of motion, supple LUNGS: no acute respiratory distress, intermittent wheez HEART: irregularly irregular, slightly tachycardic, ABDOMEN: Soft, nontender, No guarding, no rebound. . No CVA tenderness EXTREMITIES: Normal range of motion, no edema. NEUROLOGICAL: No facial assymetry, Normal speech, PSYCH: Normal mood, normal affect. SKIN: Warm, Dry, normal turgor, - Critical Care Time Total Critical Care Time: 45 Critical Care Statement: The care of this patient involved high complexity decision making to prevent further life threatening deterioration of the patient 's condition and/or to evaluate & treat vital organ system(s) failure or risk of failure. - Medical Decision Making 12/23/18 19:08 ddx - chf, pna, viral illness, aflutter, acs will ck labs, cxr, ekg pts HR currently stable at approx 104 apperas to be aflutter pt not on any rate control meds 12/23/18 19:54 The patient would have intermittent episodes of a flutter in the 140s 150s where he is symptomatic and short of breath, however it would spontaneously resolve and feel better. Consider giving the patient diltiazem for rate control as the patient is currently stable we'll discuss with cardiology first. 12/23/18 22:54 pt given 25mg metoprolol per card recs HR has been stable under 100 Heart Score/ECG Review - ECG Impressions Comment:: 12/23/18 20:30 Twelve-lead EKG was performed and reviewed by me. irregularly irregular rate of 108 abnormal r wave progression no st changes suggestive of acute ischemia impression: aflutter w/ variable rate
[2018-12-23 19:14] LABS: ALBUMIN 3.6 g/dl (3.4-5.0); ALK PHOS 57 U/L (45-117); ANION GAP 9 MMOL/L (8-16); BILIRUBIN,TOTAL 0.5 mg/dL (0.2-1); BLOOD UREA NITROGEN 19 mg/dL (7-18); CALCIUM 8.3 mg/dL (8.5-10.1); CHLORIDE 109 mmol/L (98-107); CO2 24 mmol/L (21-32); CREATININE 1.3 mg/dL (0.55-1.3); GLUCOSE,RANDOM 96 mg/dL (74-106); N-TERMINAL BNP 300.6 pg/ml (5-450); POTASSIUM 4.4 mmol/L (3.5-5.1); SGOT/AST 20 U/L (15-37); SGPT/ALT 16 U/L (13-61); SODIUM 142 mmol/L (136-145); TOT PROT 6.8 g/dl (6.4-8.2)
[2018-12-23 19:22] LABS: PLATELET ESTIMATE ADEQUATE
[2018-12-23 19:45] LABS: INR 1.14 (0.83-1.09); PROTHROMBIN TIME (PATIENT) 13.5 SEC (9.7-13.0)
[2018-12-23] MEDS ORDERED: METOPROLOL TARTRATE 25 MG TABLET (FP) PO ONE (20:16)
[2018-12-23] MEDS ORDERED: METOPROLOL TARTRATE 25 MG TABLET (FP) ONE (20:25)
--- NOTE | 2018-12-23 20:29 | HP ---
Admitting History and Physical - Primary Care Physician PCP: Armani Barraza - Admission Chief Complaint: SOB, Chest Pressure, Palpitations History of Present Illness: This is a 82 y/o man with a past medical history of CAD s/p FL x2, stents x3, HLD, PAD, COPD (no home O2), Prostate Ca (RT, surgery), BPH. Who presents to the ED with chest pressure to midsternum, palpitations, increased SOB, SOTO x 1- 2 days. Patient also reports having a productive cough with green phlegm. Patient denies fever, chills, dizziness, CELIS, AP, N/V/D, constipation. Patient denies any sick contacts. History Source: Patient, Medical Record Limitations to Obtaining History: No Limitations - Past Medical History Cardiovascular: Yes: AFIB (flutter), CAD, HTN, Hyperlipdemia Pulmonary: Yes: COPD Gastrointestinal: Yes: GERD Musculoskeletal: Yes: Chronic low back pain - Smoking History Smoking history: Current some day smoker Have you smoked in the past 12 months: No Aproximately how many cigarettes per day: 2 - Alcohol/Substance Use Hx Alcohol Use: No History of Substance Use: reports: None - Social History ADL: Independent History of Recent Travel: No Home Medications - Allergies Allergies/Adverse Reactions: Allergies Allergy/AdvReac Type Severity Reaction Status Date / Time No Known Allergies Allergy Verified 12/23/18 17:48 - Home Medications Home Medications: Ambulatory Orders Tamsulosin HCl [Flomax -] 0.4 mg PO DAILY@0830 #30 cap.er.24h 08/24/14 Fluticasone/Salmeterol [Advair 250-50 Diskus] 1 each IH DAILY 07/20/17 Furosemide [Lasix -] 40 mg PO DAILY 07/20/17 Hydrocodone/Ibuprofen [Hydrocodone-Ibuprofen 7.5-200] 1 each PO TID PRN Ranitidine HCl [Zantac] 150 mg PO TID 07/20/17 Rosuvastatin Calcium [Crestor] 40 mg PO DAILY 07/20/17 Albuterol 2.5/Ipratropium 0.5 [Duoneb -] 1 amp NEB QIDR amp 07/22/17 Cefuroxime Axetil [Ceftin -] 500 mg PO Q12H #14 tablet 04/04/18 Home Medications (free text): Warfarin 5mg po Daily Family Disease History - Family Disease History Family History: Unable to Obtain Review of Systems - Review of Systems Constitutional: reports: No Symptoms Eyes: reports: No Symptoms HENT: reports: No Symptoms Neck: reports: No Symptoms Cardiovascular: reports: Chest Pain, Palpitations, Shortness of Breath Respiratory: reports: SOB, SOB on Exertion Gastrointestinal: reports: No Symptoms Genitourinary: reports: No Symptoms Breasts: reports: No Symptoms Reported Musculoskeletal: reports: No Symptoms Integumentary: reports: No Symptoms Neurological: reports: No Symptoms Endocrine: reports: No Symptoms Hematology/Lymphatic: reports: No Symptoms Psychiatric: reports: No Symptoms Physical Examination Vital Signs: Vital Signs Temperature 98 F 12/23/18 17:44 Pulse Rate 103 H 12/23/18 18:53 Respiratory Rate 18 12/23/18 17:44 Blood Pressure 108/72 12/23/18 18:53 O2 Sat by Pulse Oximetry (%) 98 12/23/18 18:05 Constitutional: Yes: Calm (respiratory), Mild Distress Eyes: Yes: WNL, Conjunctiva Clear, EOM Intact, PERRL HENT: Yes: WNL, Atraumatic, Normocephalic Neck: Yes: WNL, Supple, Trachea Midline Cardiovascular: Yes: Tachycardia, Pulse Irregular, S1, S2 Respiratory: Yes: Diminished, On Nasal O2, Rhonchi, SOB, SOB on Exertion, Wheezes Gastrointestinal: Yes: WNL, Normal Bowel Sounds, Soft Renal/: Yes: WNL Breast(s): Yes: WNL Musculoskeletal: Yes: WNL Extremities: Yes: WNL Edema: No Peripheral Pulses WNL: Yes Neurological: Yes: Alert, Oriented, Cran Nerves II-XII Intact ...Motor Strength: WNL Psychiatric: Yes: WNL, Alert, Oriented Labs: CBC, BMP 12/23/18 18:05 12/23/18 18:05 Laboratory Results - last 24 hr 12/23/18 12/23/18 12/23/18 18:05 18:05 19:20 WBC 7.4 RBC 5.16 Hgb 14.5 Hct 44.3 MCV 86.0 MCH 28.1 MCHC 32.7 RDW 15.1 Plt Count 233 MPV 7.2 L Absolute Neuts (auto) 3.1 Total Counted 100 Neutrophils % 41.6 L D Neutrophils % (Manual) 38.0 L Lymphocytes % 31.1 D Lymphocytes % (Manual) 32.0 Monocytes % 19.3 H D Monocytes % (Manual) 22 H Eosinophils % 6.9 H D Eosinophils % (Manual) 7.0 H Basophils % 1.1 D Basophils % (Manual) 1.0 Nucleated RBC % 0 Differential Comment Man diff performed Platelet Estimate Adequate Platelet Comment PT with INR INR Sodium 142 Potassium 4.4 Chloride 109 H Carbon Dioxide 24 Anion Gap 9 BUN 19 H Creatinine 1.3 Creat Clearance w eGFR 52.72 Random Glucose 96 Calcium 8.3 L Magnesium 2.0 Total Bilirubin 0.5 AST 20 ALT 16 Alkaline Phosphatase 57 Creatine Kinase 238 Creatine Kinase Index 1.0 CK-MB (CK-2) 2.4 Troponin I < 0.02 B-Natriuretic Peptide 300.6 Total Protein 6.8 Albumin 3.6 Influenza A (Rapid) Negative Influenza B (Rapid) Negative 12/23/18 19:23 WBC RBC Hgb Hct MCV MCH MCHC RDW Plt Count MPV Absolute Neuts (auto) Total Counted Neutrophils % Neutrophils % (Manual) Lymphocytes % Lymphocytes % (Manual) Monocytes % Monocytes % (Manual) Eosinophils % Eosinophils % (Manual) Basophils % Basophils % (Manual) Nucleated RBC % Differential Comment Platelet Estimate Platelet Comment PT with INR 13.50 H INR 1.14 H Sodium Potassium Chloride Carbon Dioxide Anion Gap BUN Creatinine Creat Clearance w eGFR Random Glucose Calcium Magnesium Total Bilirubin AST ALT Alkaline Phosphatase Creatine Kinase Creatine Kinase Index CK-MB (CK-2) Troponin I B-Natriuretic Peptide Total Protein Albumin Influenza A (Rapid) Influenza B (Rapid) Current Medications Generic Name Dose Route Start Last Admin Trade Name Freq PRN Reason Stop Dose Admin Albuterol/Ipratropium 1 amp 12/23/18 22:30 12/23/18 22:54 Duoneb - NEB 1 amp Q6H PRN Administration SHORTNESS OF BREATH Budesonide/Formoterol Fumarate 1 puff 12/23/18 23:00 12/23/18 23:00 Symbicort 80/4.5mcg - IH 1 puff BID [facility] Administration Rosuvastatin Calcium 40 mg 12/24/18 10:00 Crestor - PO DAILY PHOE[facility] Tamsulosin HCl 0.4 mg 12/24/18 08:30 Flomax - PO DAILY@0830 [facility] Warfarin Sodium 5 mg 12/24/18 18:00 Coumadin - PO DAILY@1800 [facility] Intake & Output 12/21/18 12/22/18 12/23/18 12/24/18 23:59 23:59 23:59 23:59 Weight 72.121 kg Imaging - Results Chest X-ray: Image Reviewed EKG: Image Reviewed Problem List - Problems (1) Chest pain Assessment/Plan: r/o ACS Cardiac monitoring Serial Enzymes Appreciate Cardiology consult Continue Asa Last echo 2016- LVSF nl, RVF nl, trace MR, mild TR, mild Aortic Sclerosis Echo in am EKG- reviewed Code(s): R07.9 - CHEST PAIN, UNSPECIFIED (2) Atrial flutter Assessment/Plan: BB given in ED Consider CCB [id number] 3 Appreciate Cardiology consult Continue Coumadin INR goal 2-3 Code(s): I48.92 - UNSPECIFIED ATRIAL FLUTTER (3) CAD (coronary artery disease) Assessment/Plan: Continue home meds EKG- SR with PVCs, anteroseptal infarct age undetermined, PVCs new compared to prior study Code(s): I25.10 - ATHSCL HEART DISEASE OF [place] CORONARY ARTERY W/O ANG PCTRS (4) Subtherapeutic international normalized ratio (INR) Assessment/Plan: Secondary to non-compliance Coumadin dose now Continue Coumadin Series INR Code(s): R79.1 - ABNORMAL COAGULATION PROFILE (5) COPD (chronic obstructive pulmonary disease) Assessment/Plan: Acute Flare Duoneb Code(s): J44.9 - CHRONIC OBSTRUCTIVE PULMONARY DISEASE, UNSPECIFIED (6) HTN (hypertension) Assessment/Plan: stable Monitor BP No current home meds Given BB for rate control Code(s): I10 - ESSENTIAL (PRIMARY) HYPERTENSION (7) HLD (hyperlipidemia) Assessment/Plan: stable Continue Crestor Monitor LFTs Code(s): E78.5 - HYPERLIPIDEMIA, UNSPECIFIED (8) BPH (benign prostatic hyperplasia) Assessment/Plan: Stable Continue Flomax Code(s): N40.0 - BENIGN PROSTATIC HYPERPLASIA WITHOUT LOWER URINRY TRACT SYMP (9) History of prostate cancer Assessment/Plan: s/p Radiation Therapy, Surgery Code(s): Z85.46 - PERSONAL HISTORY OF MALIGNANT NEOPLASM OF PROSTATE Assessment/Plan This is a 82 y/o man placed in Telemetry Observation for Chest Pain, Aflutter with RVR for further evaluation of their emergent condition. Visit type - Emergency Visit Emergency Visit: Yes ED Registration Date: 12/23/18 Care time: The patient presented to the Emergency Department on the above date and was hospitalized for further evaluation of their emergent condition. - New Patient This patient is new to me today: Yes Date on this admission: 12/23/18 - Critical Care Critical Care patient: No
[2018-12-23] MEDS ORDERED: guaiFENesin 200 MG/10 ML 10 ML UNIT-DOSE CUPS PO ONE (21:46)
[2018-12-23] MEDS ORDERED: guaiFENesin 200 MG/10 ML 10 ML UNIT-DOSE CUPS ONE (22:09)
[2018-12-23] MEDS ORDERED: WARFARIN NA 5 MG TABLET (UD) PO ONE (22:40)
[2018-12-23] MEDS ORDERED: ALBUTEROL SO4 2.5/IPRATROPIUM 0.5 INH SOL 3 ML VIAL.NEB. NEB ONE (22:48)
[2018-12-23] MEDS: ALBUTEROL SO4 2.5/IPRATROPIUM 0.5 INH SOL 3 ML VIAL.NEB. NEB PRN (22:54)
[2018-12-23] MEDS: BUDESONIDE/FORMETEROL FUMARATE 80/4.5 mcg INHALER IH SCH (23:00)
[2018-12-24 06:20] LABS: BASO % 1.7 % (0-2.0); EOS % 7.7 % (0-4.5); HEMATOCRIT 38.3 % (35.4-49); HEMOGLOBIN 12.7 GM/dL (11.7-16.9); LYMPH % 32.5 % (8-40); MCH 28.2 pg (25.7-33.7); MCHC 33.2 g/dl (32.0-35.9); MEAN CELL VOLUME 85.1 fl (80-96); MEAN PLT VOLUME 7.1 fl (7.5-11.1); MONO % 19.1 % (3.8-10.2); PLATELET COUNT 231 K/MM3 (134-434); RDW 14.5 % (11.9-15.9); WHITE BLOOD COUNT 5.3 K/mm3 (4.0-10.0)
[2018-12-24 06:42] LABS: INR 1.16 (0.83-1.09); PROTHROMBIN TIME (PATIENT) 13.7 SEC (9.7-13.0)
[2018-12-24 06:49] LABS: ANION GAP 7 MMOL/L (8-16); BLOOD UREA NITROGEN 25 mg/dL (7-18); CHLORIDE 110 mmol/L (98-107); CHOLESTEROL 153 mg/dL (50-200); CO2 24 mmol/L (21-32); CREATININE 1.1 mg/dL (0.55-1.3); GLUCOSE,RANDOM 87 mg/dL (74-106); HDL CHOLESTEROL 57 mg/dL (40-60); MAGNESIUM 2.2 mg/dL (1.8-2.4); POTASSIUM 4.1 mmol/L (3.5-5.1); SODIUM 141 mmol/L (136-145); TRIGLYCERIDES 101 mg/dL (0-150)
[2018-12-24] MEDS: TAMSULOSIN HCL 0.4 MG CAP PO SCH (09:00)
--- NOTE | 2018-12-24 09:27 | CON.CARD ---
Consult Consult Specialty:: cardio - History of Present Illness Chief Complaint: sob History of Present Illness: 82 M presented with SOB and palpitations. 1 day h/o sob with intermittent palpitations. in ER had parosysms of tachy to 140s-150s felt to be fib/flutter per notes. dropped sats to 70s at times, ? if assctd with tachycarrhythmia episodes pt saw [facility] last in 2013--at that time was there for symptoms of sob occurring with rapid atrial flutter on ekg. rec'd admit for lovenox bridge to warfarin--? pt refused. pt says he has been seeing dr amador only since then, but has been maintained on warfarin with monthly lab f/u at pmd office. few days now he notes episodes of feeling breathless, more than usual copd baseline, assctd with subtle palpitations. sometimes resolves in minute(s), but lasted longer on DOA so came in. yest felt lower sternal cp associated with it. no more cp now. no sob at present denies presyncope PMH: COPD CAD s/p FL, stents HLD COPD (no home O2) Prostate Ca (RT, surgery) BPH - Past Medical History Cardio/Vascular: Yes: AFIB (flutter), CAD, HTN, Hyperlipdemia Pulmonary: Yes: COPD Gastrointestinal: Yes: GERD Musculoskeletal: Yes: Chronic low back pain - Alcohol/Substance Use Hx Alcohol Use: No History of Substance Use: reports: None - Smoking History Smoking history: Current some day smoker Have you smoked in the past 12 months: No Aproximately how many cigarettes per day: 2 - Social History ADL: Independent History of Recent Travel: No Home Medications - Allergies Allergies/Adverse Reactions: Allergies Allergy/AdvReac Type Severity Reaction Status Date / Time No Known Allergies Allergy Verified 12/23/18 17:48 - Home Medications Home Medications: Ambulatory Orders Tamsulosin HCl [Flomax -] 0.4 mg PO DAILY@0830 #30 cap.er.24h 08/24/14 Fluticasone/Salmeterol [Advair 250-50 Diskus] 1 each IH DAILY 07/20/17 Furosemide [Lasix -] 40 mg PO DAILY 07/20/17 Hydrocodone/Ibuprofen [Hydrocodone-Ibuprofen 7.5-200] 1 each PO TID PRN Ranitidine HCl [Zantac] 150 mg PO TID 07/20/17 Rosuvastatin Calcium [Crestor] 40 mg PO DAILY 07/20/17 Albuterol 2.5/Ipratropium 0.5 [Duoneb -] 1 amp NEB QIDR amp 07/22/17 Cefuroxime Axetil [Ceftin -] 500 mg PO Q12H #14 tablet 12/13/17 Family Disease History - Family Disease History Family History: Denies (no known cmp) Review of Systems - Review of Systems Constitutional: denies: Chills, Fever Eyes: denies: Eye Pain HENT: denies: Nasal Congestion Neck: denies: Stiffness Cardiovascular: denies: Palpitations Respiratory: denies: Orthopnea, PND Gastrointestinal: denies: Diarrhea, Rectal Bleeding Genitourinary: denies: Burning, Hematuria Musculoskeletal: denies: Muscle Pain Integumentary: denies: Rash Neurological: denies: Numbness, Seizure, Syncope Endocrine: denies: Excessive Sweating Hematology/Lymphatic: denies: Excessive Bleeding Vital Signs: Vital Signs Temperature 98 F 12/23/18 17:44 Pulse Rate 103 H 12/23/18 18:53 Respiratory Rate 18 12/23/18 17:44 Blood Pressure 108/72 12/23/18 18:53 O2 Sat by Pulse Oximetry (%) 98 12/23/18 18:05 Constitutional: Yes: Well Nourished, No Distress Eyes: No: Sclera Icterus HENT: No: Nasal Congestion Neck: No: Decreased ROM Respiratory: Yes: CTA Bilaterally (diffusely decr). No: Accessory Muscle Use, Rales, Wheezes Gastrointestinal: Yes: Normal Bowel Sounds. No: Distention, Hepatomegaly, Palpable Mass, Tenderness Cardiovascular: Yes: Regular Rate and Rhythm (decr intensity sounds) JVD: No Carotid Bruit: No PMI: Non-Displaced Heart Sounds: Yes: S1, S2. No: Gallop Murmur: No: Systolic Murmur, Diastolic Murmur Musculoskeletal: Yes: Other (No kyphosis) Extremities: No: Cool, Cyanosis Edema: No Peripheral Pulses: 2+ Left Carotid, 2+ Right Carotid, 2+ Left Doralis Pedis, 2+ Right Dorsalis Pedis Integumentary: No: Jaundice Neurological: Yes: Alert, Oriented (x3) Psychiatric: No: Agitated - Other Data Labs, Other Data: CBC, BMP 12/24/18 05:55 12/24/18 05:55 INR, PTT INR 1.16 (0.83-1.09) H 12/24/18 05:55 Troponin, BNP 12/23/18 12/24/18 18:05 05:55 Troponin I < 0.02 < 0.02 B-Natriuretic Peptide 300.6 Troponin, BNP 12/23/18 12/24/18 18:05 05:55 Troponin I < 0.02 < 0.02 B-Natriuretic Peptide 300.6 Laboratory Tests 12/23/18 12/24/18 12/24/18 18:05 05:55 05:55 WBC 5.3 Hgb 12.7 Plt Count 231 Sodium 141 Potassium 4.1 Carbon Dioxide 24 BUN 25 H Creatinine 1.1 AST 20 ALT 16 Troponin I < 0.02 < 0.02 B-Natriuretic Peptide 300.6 Triglycerides 101 Cholesterol 153 Total LDL Cholesterol 75 HDL Cholesterol 57 Assessment/Plan Echo 07/2017: nl LVSF. nl RV. nl LA. mild TR. RVSP 30-40 CT chest 2017: extensive COPD changes ECG 12/23 (18:25:24): NSR with freq APCs. normal axis. ? old ASMI. no ST-T abn ( no change vs 12/27) 12/23 (18:25:42): NSR with brief runs PAT, o/w no change 12/24: NSR, ? old ASMI (no change vs baseline) CXR: clear lungs/pleura tele: NSR with paroxysmal course afib paroxysmal fib and flutter -EKGs shows brief runs of SVT with v rate apprx 150s. clear atrial activity present and this appears most likely to be PAT. however cannot definitively rule out AFL/AT with 2:1 conduction at faster rate (i.e. which would possibly warrant AC consideration)--as the 2nd p wave would fall within the QRS and may be obscured -notes from office reviewed: frieda beauchamp 2013 with sob, at that time ECG showed rapid atrial flutter--sent to ER for lovenox bridge to warfarn and plavix d/c' d. no f/u with us since. has been on warfarin monitored by dr amador since--INR 1.1 here -rate control: severity of bronchospasm sx's (severe copd) unknown--defer bb for now, start diltiazem 30 TID, observe for recurrent tachyarrhythmia. watch for hypotension -echo -CHADS VASC = 3. given pt's past history of non-compliance with f/u, and subtherapeutic INR on warfarin (1.1 here), appears to be at high risk for extended [id number] time on warfarin. recommend eliquis 5 bid h/o CAD: -chest pain here, ? if in assctn with tachy episode -ECG non-ischemia. trop neg x 2 -prior BMS to LCX 2007 ([facility]) -last saw us 2013--was on aspirin and plavix (for PAD indication as well) -pharm mpi ordered COPD: -per primary, pulm as indicated PAD: -s/p stent to LLE in past ([facility])
[2018-12-24] MEDS: BUDESONIDE/FORMETEROL FUMARATE 80/4.5 mcg INHALER IH SCH ×2 (10:20→23:01)
--- NOTE | 2018-12-24 10:26 | EKG ---
Test Reason : Blood Pressure : / mmHG Vent. Rate : 069 BPM Atrial Rate : 069 BPM P-R Int : 154 ms QRS Dur : 100 ms QT Int : 410 ms P-R-T Axes : 085 053 076 degrees QTc Int : 439 ms NORMAL SINUS RHYTHM POSSIBLE LEFT ATRIAL ENLARGEMENT SEPTAL INFARCT (CITED ON OR BEFORE 11-FEB-2001) ABNORMAL ECG WHEN COMPARED WITH ECG OF 10-DEC-2017 05:20, NO SIGNIFICANT CHANGE WAS FOUND Confirmed by JAYME MCLEOD MD ([id number]) on 12/24/2018 10:25:44 AM Referred By: Confirmed By:JAYME MCLEOD MD
[2018-12-24] MEDS ORDERED: dilTIAZem HCL 30 MG TABLET (FP) ONE (12:08)
[2018-12-24] MEDS ORDERED: APIXABAN 5 MG TABLET PO ONE (12:08)
[2018-12-24] MEDS: dilTIAZem HCL 30 MG TABLET (FP) PO SCH ×3 (12:15→21:31)
[2018-12-24] MEDS: APIXABAN 5 MG TABLET PO SCH ×2 (12:16→21:31)
[2018-12-24] MEDS ORDERED: ALBUTEROL SO4 0.083% IH SOL 2.5 MG/3 ML VIAL.NEB. NEB PRN (12:42)
--- NOTE | 2018-12-24 12:51 | ECHO ---
Name: MIKO VIDAL Exam:Adult Echocardiogram Study Date: 12/24/2018 09:33 AM Age: 82 yrs Reason For Study: Chest pain Height: 73 in Weight: 159 lb BSA: 2.0 m2 MMode/2D Measurements & Calculations IVSd: 0.87 cm Ao root diam: 3.0 cm LVIDd: 3.1 cm LA dimension: 2.3 cm LVIDs: 2.6 cm LVPWd: 1.0 cm EDV(Teich): 37.5 ml LVOT diam: 2.0 cm ESV(Teich): 25.4 ml Doppler Measurements & Calculations MV E max walker: 50.0 cm/sec Ao V2 max: 90.9 cm/sec MV A max walker: 64.5 cm/sec Ao max P.3 mmHg MV E/A: 0.78 MV dec time: 0.16 sec CHERYL(V,D): 2.9 cm2 LV V1 max P.8 mmHg TR max walker: 232.1 cm/sec LV V1 max: 82.9 cm/sec TR max P.6 mmHg Procedure The study was technically difficult with many images being suboptimal in quality. Left Ventricle The left ventricular size, thickness and function are normal. Ejection Fraction = 65-70%. Right Ventricle The right ventricle is normal in size and function. Atria Normal left and right atrial size and function. Mitral Valve There is mild mitral valve thickening. There is trace mitral regurgitation. Tricuspid Valve The tricuspid valve is not well visualized, but is grossly normal. There is trace tricuspid regurgita tion. There was insufficient TR detected to calculate RV systolic pressure. Aortic Valve There is moderate aortic sclerosis.;. No aortic regurgitation is present. Pulmonic Valve The pulmonic valve is not well visualized. Great Vessels The aortic root is normal size. Pericardium/Pleura There is no pericardial effusion. Interpretation Summary There is no comparison study available. There is moderate aortic sclerosis.; There is trace mitral regurgitation. The left ventricular size, thickness and function are normal The right ventricle is normal in size and function. Ejection Fraction = 65-70%. Trenton Hernandez MD 12/24/2018 12:50 PM
--- NOTE | 2018-12-24 12:51 | PN ---
Progress Note (short form) - Note Progress Note: pt seen/ examined chart reviewed awake/ comfortable denies cp at present cardiology consult noted/ appreciated Vital Signs Temp 98 F 12/23/18 17:44 Pulse 73 12/24/18 12:16 Resp 18 12/24/18 12:16 BP 133/72 12/24/18 12:16 Pulse Ox 99 12/24/18 12:16 Intake & Output 12/23/18 12/24/18 12/24/18 23:59 11:59 23:59 Weight 159 lb Other: Voiding Method Urinal Height 6 ft 1 in Body Mass Index (BMI) 20.9 Active Medications Albuterol Sulfate (Ventolin 0.083% Nebulizer Soln -) 1 amp NEB Q4H PRN PRN Reason: SHORT OF BREATH/WHEEZING Albuterol/Ipratropium (Duoneb -) 1 amp NEB Q6H PRN PRN Reason: SHORTNESS OF BREATH Last Admin: 12/23/18 22:54 Dose: 1 amp Apixaban (Eliquis -) 5 mg PO BID [facility] Last Admin: 12/24/18 12:16 Dose: 5 mg Budesonide/Formoterol Fumarate (Symbicort 80/4.5mcg -) 1 puff IH BID [facility] Last Admin: 12/24/18 10:20 Dose: 1 puff Diltiazem HCl (Cardizem -) 30 mg PO TID [facility] Last Admin: 12/24/18 12:15 Dose: 30 mg Rosuvastatin Calcium (Crestor -) 40 mg PO HS [facility] Tamsulosin HCl (Flomax -) 0.4 mg PO DAILY@0830 [facility] Last Admin: 12/24/18 09:00 Dose: 0.4 mg CBC, BMP 12/24/18 05:55 12/24/18 05:55 cxr -- noted-- no acute process. Physical exam Awake comfortable heent- no jvd lungs- scattered rhonchi-- cvs- s1, s2 rrr abd - soft ext- no edema neuro- aox 3 a/p cp palpitations sob copd abnomal ct chest -- 07/28 continue present care echo will order f/u ct chest-- pt reports did not do any f/u study and admits continue to smoke nebulizer treatment will follow Problem List - Problems (1) Chest pain Code(s): R07.9 - CHEST PAIN, UNSPECIFIED (2) Shortness of breath Code(s): R06.02 - SHORTNESS OF BREATH (3) Atrial fibrillation Code(s): I48.91 - UNSPECIFIED ATRIAL FIBRILLATION (4) CAD (coronary artery disease) Code(s): I25.10 - ATHSCL HEART DISEASE OF [place] CORONARY ARTERY W/O ANG PCTRS (5) COPD (chronic obstructive pulmonary disease) Code(s): J44.9 - CHRONIC OBSTRUCTIVE PULMONARY DISEASE, UNSPECIFIED (6) HTN (hypertension) Code(s): I10 - ESSENTIAL (PRIMARY) HYPERTENSION
[2018-12-24] MEDS ORDERED: WARFARIN NA 5 MG TABLET (UD) PO SCH (18:00)
[2018-12-24] MEDS ORDERED: WARFARIN NA 5 MG TABLET (UD) PO ONE (18:00)
[2018-12-24 18:25] VITALS: BMI 19.8
[2018-12-24] MEDS ORDERED: ROSUVASTATIN CA 20 MG TABLET (FP) PO SCH (22:00)
[2018-12-25] MEDS: dilTIAZem HCL 30 MG TABLET (FP) PO SCH ×4 (05:13→14:18)
[2018-12-25] MEDS: ALBUTEROL SO4 2.5/IPRATROPIUM 0.5 INH SOL 3 ML VIAL.NEB. NEB PRN (09:21)
[2018-12-25] MEDS: TAMSULOSIN HCL 0.4 MG CAP PO SCH (09:25)
[2018-12-25] MEDS: APIXABAN 5 MG TABLET PO SCH (09:25)
[2018-12-25] MEDS: BUDESONIDE/FORMETEROL FUMARATE 80/4.5 mcg INHALER IH SCH (09:26)
[2018-12-25] MEDS ORDERED: REGADENOSON 0.4 MG/5 ML PRE-FILLED SYRINGE IVPUSH ONE ×2 (10:30→11:00)
--- NOTE | 2018-12-25 13:33 | PN ---
Progress Note (short form) - Note Progress Note: no complaints no chest pain, palpitations, SOB Vital Signs - 24 hr 12/24/18 12/24/18 12/24/18 15:41 18:10 20:00 Temperature 98.4 F 98.8 F Pulse Rate 72 85 Pulse Rate [ 71 Apical] Respiratory 16 16 18 Rate Blood Pressure 115/74 110/65 Blood Pressure 100/70 [Right Arm] O2 Sat by Pulse 95 95 Oximetry (%) 12/24/18 12/25/18 12/25/18 21:00 02:00 05:23 Temperature 97.8 F 98.2 F Pulse Rate 69 80 Pulse Rate [ Apical] Respiratory 18 18 Rate Blood Pressure 117/51 L 108/68 Blood Pressure [Right Arm] O2 Sat by Pulse 96 Oximetry (%) 12/25/18 12/25/18 12/25/18 08:34 09:00 09:24 Temperature 98 F Pulse Rate 73 89 Pulse Rate [ Apical] Respiratory 20 20 20 Rate Blood Pressure 94/64 117/66 Blood Pressure [Right Arm] O2 Sat by Pulse 96 Oximetry (%) Current Medications Generic Name Dose Route Start Last Admin Trade Name Freq PRN Reason Stop Dose Admin Albuterol Sulfate 1 amp 12/24/18 12:42 12/24/18 19:35 Ventolin 0.083% Nebulizer Soln - NEB 1 amp Q4H PRN Administration SHORT OF BREATH/WHEEZING Albuterol/Ipratropium 1 amp 12/23/18 22:30 12/25/18 09:21 Duoneb - NEB 1 amp Q6H PRN Administration SHORTNESS OF BREATH Apixaban 5 mg 12/24/18 11:30 12/25/18 09:25 Eliquis - PO 5 mg BID PHOEBE Administration Budesonide/Formoterol Fumarate 1 puff 12/23/18 23:00 12/25/18 09:26 Symbicort 80/4.5mcg - IH 1 puff BID PHOEBE Administration Diltiazem HCl 30 mg 12/24/18 11:27 12/25/18 09:25 Cardizem - PO 30 mg TID PHOEBE Administration Rosuvastatin Calcium 40 mg 12/24/18 22:00 12/24/18 21:31 Crestor - PO 40 mg HS PHOEBE Administration Tamsulosin HCl 0.4 mg 12/24/18 08:30 12/25/18 09:25 Flomax - PO 0.4 mg DAILY@0830 PHOEBE Administration Physical exam Awake comfortable heent- no jvd lungs- scattered rhonchi-- cvs- s1, s2 rrr abd - soft ext- no edema neuro- aox 3 a/p cp palpitations sob copd abnormal ct chest -- 07/28 continue present care continue Eliquis rate control CT chest noted-- Pulmonary eval for developing lung mass stress test negative nebulizer treatment will follow Problem List - Problems (1) BPH (benign prostatic hyperplasia) Code(s): N40.0 - BENIGN PROSTATIC HYPERPLASIA WITHOUT LOWER URINRY TRACT SYMP (2) Chest pain Code(s): R07.9 - CHEST PAIN, UNSPECIFIED (3) HLD (hyperlipidemia) Code(s): E78.5 - HYPERLIPIDEMIA, UNSPECIFIED (4) Atrial fibrillation Code(s): I48.91 - UNSPECIFIED ATRIAL FIBRILLATION (5) CAD (coronary artery disease) Code(s): I25.10 - ATHSCL HEART DISEASE OF [place] CORONARY ARTERY W/O ANG PCTRS (6) COPD (chronic obstructive pulmonary disease) Code(s): J44.9 - CHRONIC OBSTRUCTIVE PULMONARY DISEASE, UNSPECIFIED
--- NOTE | 2018-12-25 14:23 | CON.PULM ---
Consult Consult Specialty:: PULM/CCM Referred by:: TOÑITO Reason for Consultation:: Abnormal CT Chest - History of Present Illness Chief Complaint: CP History of Present Illness: 82 M, significant and active smoking history, COPD, Emphysema, CAD s/p MT x2, stents x3, HLD, PAD, Prostate CA, S/P resection/RT, and BPH. Patient was seen by our service in 2017. CT chest revealed a LLL 1.9 cm suspicious density and it was recommended to have a PET scan after D/C. He is unsure whether this was performed. Admitted via the ER due to 2 days of worsening URI type symptoms. Yesterday he developed midsternal chest pressure and palpitations. No travel history or sick contacts. No hemoptysis or night sweats. CT: Increased size of the LLL irregular lesion to 2.5 cm: was 1.9 cm in 2017 and 1.3 cm in 2014. Moderately/severe emphysema. - History Source History Provided By: Patient Limitations to Obtaining History: Poor Historian - Past Medical History Cardio/Vascular: Yes: AFIB (flutter), CAD, HTN, Hyperlipdemia Pulmonary: Yes: Bronchitis, COPD, Pneumonia. No: Asthma, Cancer, O2 Dependent, Previously Intubated, Pulmonary Embolus, Pulmonary Fibrosis, Sleep Apnea Gastrointestinal: Yes: GERD Musculoskeletal: Yes: Chronic low back pain - Alcohol/Substance Use Hx Alcohol Use: No History of Substance Use: reports: None - Smoking History Smoking history: Current some day smoker Have you smoked in the past 12 months: No Aproximately how many cigarettes per day: 2 - Social History ADL: Independent History of Recent Travel: No Home Medications - Allergies Allergies/Adverse Reactions: Allergies Allergy/AdvReac Type Severity Reaction Status Date / Time No Known Allergies Allergy Verified 12/23/18 17:48 - Home Medications Home Medications: Ambulatory Orders Tamsulosin HCl [Flomax -] 0.4 mg PO DAILY@0830 #30 cap.er.24h 08/24/14 Fluticasone/Salmeterol [Advair 250-50 Diskus] 1 each IH DAILY 07/20/17 Furosemide [Lasix -] 40 mg PO DAILY 07/20/17 Hydrocodone/Ibuprofen [Hydrocodone-Ibuprofen 7.5-200] 1 each PO TID PRN Ranitidine HCl [Zantac] 150 mg PO TID 07/20/17 Rosuvastatin Calcium [Crestor] 40 mg PO DAILY 07/20/17 Albuterol 2.5/Ipratropium 0.5 [Duoneb -] 1 amp NEB QIDR amp 07/22/17 Cefuroxime Axetil [Ceftin -] 500 mg PO Q12H #14 tablet 12/13/17 Review of Systems - Review of Systems Constitutional: reports: Malaise. denies: Chills, Fever, Night Sweats Eyes: reports: No Symptoms HENT: reports: No Symptoms Neck: reports: No Symptoms Cardiovascular: reports: Chest Pain, Palpitations, Shortness of Breath. denies : Edema Respiratory: reports: Cough, SOB, SOB on Exertion. denies: Hemoptysis, Snoring , Wheezing Gastrointestinal: reports: No Symptoms Genitourinary: reports: No Symptoms Breasts: reports: No Symptoms Reported Musculoskeletal: reports: No Symptoms Integumentary: reports: No Symptoms Neurological: reports: No Symptoms Endocrine: reports: No Symptoms Hematology/Lymphatic: reports: No Symptoms Psychiatric: reports: No Symptoms Physical Exam Vital Sings: Vital Signs Temperature 98 F 12/25/18 08:34 Pulse Rate 89 12/25/18 09:24 Respiratory Rate 20 12/25/18 09:24 Blood Pressure 117/66 12/25/18 09:24 O2 Sat by Pulse Oximetry (%) 96 12/25/18 09:00 Constitutional: Yes: No Distress, Thin Eyes: Yes: Conjunctiva Clear, EOM Intact HENT: Yes: Atraumatic, Normocephalic Neck: Yes: Supple, Trachea Midline Cardiovascular: Yes: Pulse Irregular Respiratory: Yes: Cough, Diminished, Rhonchi. No: Accessory Muscle Use, Rales, SOB, SOB on Exertion, Stridor, Tachypnea, Wheezes ...Inspection: Yes: WNL ...Clubbing: No Gastrointestinal: Yes: Normal Bowel Sounds, Soft Renal/: Yes: WNL Musculoskeletal: Yes: WNL Extremities: Yes: WNL Edema: No Peripheral Pulses WNL: Yes Integumentary: Yes: WNL Neurological: Yes: WNL, Alert, Oriented ...Motor Strength: WNL Psychiatric: Yes: WNL, Alert, Oriented Labs: CBC, BMP 12/24/18 05:55 12/24/18 05:55 Imaging - Results Chest X-ray: Report Reviewed, Image Reviewed Cat Scan: Report Reviewed, Image Reviewed Problem List - Problems (1) Lung mass Code(s): R91.8 - OTHER NONSPECIFIC ABNORMAL FINDING OF LUNG FIELD (2) BPH (benign prostatic hyperplasia) Code(s): N40.0 - BENIGN PROSTATIC HYPERPLASIA WITHOUT LOWER URINRY TRACT SYMP (3) Chest pain Code(s): R07.9 - CHEST PAIN, UNSPECIFIED (4) HLD (hyperlipidemia) Code(s): E78.5 - HYPERLIPIDEMIA, UNSPECIFIED (5) History of prostate cancer Code(s): Z85.46 - PERSONAL HISTORY OF MALIGNANT NEOPLASM OF PROSTATE (6) Atrial fibrillation Code(s): I48.91 - UNSPECIFIED ATRIAL FIBRILLATION (7) CAD (coronary artery disease) Code(s): I25.10 - ATHSCL HEART DISEASE OF [place] CORONARY ARTERY W/O ANG PCTRS (8) COPD (chronic obstructive pulmonary disease) Code(s): J44.9 - CHRONIC OBSTRUCTIVE PULMONARY DISEASE, UNSPECIFIED (9) HTN (hypertension) Code(s): I10 - ESSENTIAL (PRIMARY) HYPERTENSION (10) Pulmonary hypertension Code(s): I27.20 - PULMONARY HYPERTENSION, UNSPECIFIED Assessment/Plan 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 On discharge would order: LAMA/LABA combination Ventolin PRN The patient reports that he may have had PET imaging but is unsure, I advised to follow with his PMD. He has an appointment on the of this month. I have also provided him with my information for follow up. Will follow if he remains admitted. There is no Pulmonary contraindication for D/C planning. Thank you. Dr Armstrong
--- NOTE | 2018-12-25 15:05 | PN ---
Progress Note (short form) - Note Progress Note: s: no cp sob palps dizzy o: Vital Signs Period Temp Pulse Resp BP Sys/Liz Pulse Ox Last 24 Hr 97.8 F-98.8 F 69-89 16-20 94-117/51-74 95-96 Constitutional: Yes: Well Nourished, No Distress Eyes: No: Sclera Icterus Respiratory: Yes: CTA Bilaterally (diffusely decr). No: Accessory Muscle Use, Rales, Wheezes Gastrointestinal: Yes: Normal Bowel Sounds. No: Distention, Hepatomegaly, Palpable Mass, Tenderness Cardiovascular: Yes: Regular Rate and Rhythm JVD: No Heart Sounds: Yes: S1, S2. No: Gallop Murmur: No: Systolic Murmur, Diastolic Murmur Extremities: No: Cool, Cyanosis Edema: No Peripheral Pulses: 2+ Left Carotid, 2+ Right Carotid, 2+ Left Doralis Pedis, 2+ Right Dorsalis Pedis Integumentary: No: Jaundice Neurological: Yes: Alert, Oriented (x3) Psychiatric: No: Agitated Current Medications Generic Name Dose Route Start Last Admin Trade Name Freq PRN Reason Stop Dose Admin Albuterol Sulfate 1 amp 12/24/18 12:42 12/24/18 19:35 Ventolin 0.083% Nebulizer Soln - NEB 1 amp Q4H PRN Administration SHORT OF BREATH/WHEEZING Albuterol/Ipratropium 1 amp 12/23/18 22:30 12/25/18 09:21 Duoneb - NEB 1 amp Q6H PRN Administration SHORTNESS OF BREATH Apixaban 5 mg 12/24/18 11:30 12/25/18 09:25 Eliquis - PO 5 mg BID PHOEBE Administration Budesonide/Formoterol Fumarate 1 puff 12/23/18 23:00 12/25/18 09:26 Symbicort 80/4.5mcg - IH 1 puff BID PHOEBE Administration Diltiazem HCl 30 mg 12/24/18 11:27 12/25/18 14:18 Cardizem - PO 12/25/18 23:00 30 mg TID PHOEBE Administration Diltiazem HCl 120 mg 12/26/18 10:00 Cardizem Cd - PO DAILY PHOEBE Rosuvastatin Calcium 40 mg 12/24/18 22:00 12/24/18 21:31 Crestor - PO 40 mg HS PHOEBE Administration Tamsulosin HCl 0.4 mg 12/24/18 08:30 12/25/18 09:25 Flomax - PO 0.4 mg DAILY@0830 PHOEBE Administration CBC, BMP 12/24/18 05:55 12/24/18 05:55 Assessment/Plan Echo 07/2017: nl LVSF. nl RV. nl LA. mild TR. RVSP 30-40 echo 12/2018: nl lv/rv, no sig valve path mibi 12/2018: nl mpi CT chest 2017: extensive COPD changes ECG 12/23 (18:25:24): NSR with freq APCs. normal axis. ? old ASMI. no ST-T abn ( no change vs 12/27) 12/23 (18:25:42): NSR with brief runs PAT, o/w no change 12/24: NSR, ? old ASMI (no change vs baseline) CXR: clear lungs/pleura tele: sr paroxysmal fib and flutter -EKGs shows brief runs of SVT with v rate apprx 150s. clear atrial activity present and this appears most likely to be PAT. however cannot definitively rule out AFL/AT with 2:1 conduction at faster rate (i.e. which would possibly warrant AC consideration)--as the 2nd p wave would fall within the QRS and may be obscured -notes from office reviewed: frieda beauchamp 2013 with sob, at that time ECG showed rapid atrial flutter--sent to ER for lovenox bridge to warfarn and plavix d/c' d. no f/u with us since. has been on warfarin monitored by dr amador since--INR 1.1 here -rate control: severity of bronchospasm sx's (severe copd) unknown--defer bb for now, start diltiazem 30 TID-->will change to long acting daily dosing -echo unremarkable here -CHADS VASC = 3. given pt's past history of non-compliance with f/u, and subtherapeutic INR on warfarin (1.1 here), appears to be at high risk for extended [id number] time on warfarin. recommend eliquis 5 bid h/o CAD: -chest pain here, ? if in assctn with tachy episode -ECG non-ischemia. trop neg x 2 -prior BMS to LCX 2007 ([place]) -last saw us 2013--was on aspirin and plavix (for PAD indication as well) -no signs acs, echo and nuclear stress test benign here COPD, lung mass: -per primary, pulm PAD: -s/p stent to LLE in past ([place]) cardiac lew stable for dc
--- NOTE | 2018-12-25 17:02 | DS ---
Physical Examination Vital Signs: Vital Signs Temperature 98 F 12/25/18 14:00 Pulse Rate 85 12/25/18 14:00 Respiratory Rate 20 12/25/18 14:00 Blood Pressure 98/62 12/25/18 14:00 O2 Sat by Pulse Oximetry (%) 96 12/25/18 09:00 Labs: CBC, BMP 12/24/18 05:55 12/24/18 05:55 Discharge Summary Reason For Visit: ATRIAL FLUTTER Current Active Problems BPH (benign prostatic hyperplasia) (Acute) Chest pain (Acute) HLD (hyperlipidemia) (Acute) History of prostate cancer (Acute) Lung mass (Acute) Shortness of breath (Acute) Subtherapeutic international normalized ratio (INR) (Acute) Hospital Course: Admitted for atrial flutter-- rapid Seen by Cardiology and Pulmonary Had CT chest done-- showed increased size lung mass rate is controlled with Cardizem CD and started on Eliquis for anticoagulation DC warfarin Pt will need PET scan -- was done as outpt oer pt-- will need to follow up with PMD and Pulmonary stable for dc home Stress test negative for ischemia Condition: Fair - Instructions Disposition: HOME - Home Medications Comprehensive Discharge Medication List: Ambulatory Orders Tamsulosin HCl [Flomax -] 0.4 mg PO DAILY@0830 #30 cap.er.24h 08/24/14 Ranitidine HCl [Zantac] 150 mg PO TID 07/20/17 Rosuvastatin Calcium [Crestor] 40 mg PO DAILY 07/20/17 Albuterol 2.5/Ipratropium 0.5 [Duoneb -] 1 amp NEB QIDR amp 07/22/17 Apixaban [Eliquis -] 5 mg PO BID #60 tablet 12/25/18 Budesonide/Formeterol Fumarate [SYMBICORT 80/4.5mcg -] 1 puff IH BID #1 inhaler 12/25/18 Diltiazem Cd [Cardizem Cd -] 120 mg PO DAILY #30 cap.cd.24h 12/25/18
[2018-12-25 19:43] VITALS: BP 116/70; PULSE 82; TEMP 98.8
--- NOTE | 2018-12-26 15:24 | EKG ---
Test Reason : Blood Pressure : / mmHG Vent. Rate : 139 BPM Atrial Rate : 100 BPM P-R Int : 148 ms QRS Dur : 090 ms QT Int : 322 ms P-R-T Axes : 086 041 090 degrees QTc Int : 489 ms SINUS RHYTHM WITH PREMATURE SUPRAVENTRICULAR COMPLEXES AND WITH FREQUENT PREMATURE VENTRICULAR COMPLEXES BIATRIAL ENLARGEMENT ANTEROSEPTAL INFARCT (CITED ON OR BEFORE 11-FEB-2001) ABNORMAL ECG WHEN COMPARED WITH ECG OF 10-DEC-2017 05:20, PREMATURE VENTRICULAR COMPLEXES ARE NOW PRESENT PREMATURE SUPRAVENTRICULAR COMPLEXES ARE NOW PRESENT VENT. RATE HAS INCREASED BY 47 BPM Confirmed by SHANKAR HARRISON, TEJINDER ([id number]) on 12/26/2018 3:24:39 PM Referred By: Confirmed By:TEJINDER CHAPARRO MD
== END 2018-12-25 18:08 | disposition home or self-care (01) ==
LOC: JER 17:36 → JERBED 20:20 → J4W 12-24 17:46
PROVIDERS: ADMIT Internal Medicine; ATTEND Internal Medicine
PROC: 3E033GC Introduction of Other Therapeutic Substance into Peripheral Vein, Percutaneous Approach (ICD-10-PCS; principal; 2018-12-23)
PROC: 3E0F7GC Introduction of Other Therapeutic Substance into Respiratory Tract, Via Natural or Artificial Opening (ICD-10-PCS; 2018-12-23)
DX: I48.92 Unspecified atrial flutter (principal); I48.0 Paroxysmal atrial fibrillation; R07.9 Chest pain, unspecified; I27.20 Pulmonary hypertension, unspecified; I10 Essential (primary) hypertension; I25.10 Atherosclerotic heart disease of native coronary artery without angina pectoris; I25.2 Old myocardial infarction; E78.5 Hyperlipidemia, unspecified; E11.9 Type 2 diabetes mellitus without complications; J44.9 Chronic obstructive pulmonary disease, unspecified; N40.0 Benign prostatic hyperplasia without lower urinary tract symptoms; F17.210 Nicotine dependence, cigarettes, uncomplicated; R91.8 Other nonspecific abnormal finding of lung field; R79.1 Abnormal coagulation profile; Z91.14 Patient's other noncompliance with medication regimen; Z85.46 Personal history of malignant neoplasm of prostate; Z92.3 Personal history of irradiation; Z79.01 Long term (current) use of anticoagulants; Z95.5 Presence of coronary angioplasty implant and graft
CPT/HCPCS: 36415; 71045-TC-FY; 71250-TC; 78452-TC; 80048; 80053; 80061; 82550; 82553; 83721; 83735; 83880; 84100; 84443; 84484; 85025; 85610; 87804; 93005; 93010; 93017; 93306-TC; 94640; 96374; 99285-25; A9502; G0378; J2785

== ENCOUNTER 2019-05-08 08:45 | Day surgery (SDC) | payer OTHER ==
[2019-05-06 17:16] VITALS: BMI 21.1
[2019-05-08 09:11] LABS: BASO % 2.2 % (0-2.0); EOS % 9.4 % (0-4.5); HEMATOCRIT 40.3 % (35.4-49); HEMOGLOBIN 13.2 GM/dL (11.7-16.9); LYMPH % 35.8 % (8-40); MCH 28.5 pg (25.7-33.7); MCHC 32.7 g/dl (32.0-35.9); MEAN PLT VOLUME 6.6 fl (7.5-11.1); MONO % 9.8 % (3.8-10.2); NEUT % 42.8 % (42.8-82.8); PLATELET COUNT 280 K/MM3 (134-434); RBC 4.63 M/mm3 (4.00-5.60); RDW 15.5 % (11.9-15.9); WHITE BLOOD COUNT 5.2 K/mm3 (4.0-10.0)
[2019-05-08 09:22] LABS: PROTHROMBIN TIME (PATIENT) 11.8 SEC (9.7-13.0)
[2019-05-08 09:41] VITALS: BP 96/61; PULSE 88; TEMP 97.8
== END 2019-05-08 11:15 | disposition home or self-care (01) ==
LOC: JRADIR 08:45
PROVIDERS: ATTEND Internal Medicine
DX: Z53.8 Procedure and treatment not carried out for other reasons (principal)
CPT/HCPCS: 36415; 85025; 85610

== ENCOUNTER 2019-06-16 12:41 | Inpatient (IN) | payer OTHER ==
[2019-06-16 13:00] VITALS: BMI 20.9
[2019-06-16] MEDS ORDERED: methylPREDNISolone NA SUCC 125 MG/2 ML VIAL IVPUSH ONE (13:11)
[2019-06-16] MEDS ORDERED: ALBUTEROL SO4 2.5/IPRATROPIUM 0.5 INH SOL 3 ML VIAL.NEB. NEB ONE ×3 (13:11→14:34)
[2019-06-16] MEDS ORDERED: MAGNESIUM SULF 50% (8.12 MEQ/2 ML-1 GM VIAL) IVPB ONE (13:24)
[2019-06-16 13:29] LABS: BASO % 2.1 % (0-2.0); EOS % 13.1 % (0-4.5); HEMATOCRIT 44.5 % (35.4-49); HEMOGLOBIN 14.5 GM/dL (11.7-16.9); LYMPH % 30.2 % (8-40); MCH 28.3 pg (25.7-33.7); MCHC 32.5 g/dl (32.0-35.9); MEAN PLT VOLUME 7.7 fl (7.5-11.1); MONO % 7.7 % (3.8-10.2); NEUT % 46.9 % (42.8-82.8); PLATELET COUNT 227 K/MM3 (134-434); RBC 5.11 M/mm3 (4.00-5.60); RDW 14.2 % (11.9-15.9); WHITE BLOOD COUNT 5.6 K/mm3 (4.0-10.0)
--- NOTE | 2019-06-16 13:32 | PDOC ---
History of Present Illness - General Chief Complaint: Shortness of Breath Stated Complaint: SOB Time Seen by Provider: 06/16/19 12:58 History Source: Patient Exam Limitations: No Limitations - History of Present Illness Initial Comments: 06/16/19 13:29 83yo M with PMH of Afib (Eliquis, Cardizem), CAD s/p stents x2, COPD (not on home O2), CHF, Prostate Ca (s/pr RT), HTN, HLD, BPH presenting to ED with complaints of shortness of breath worsening over the past week requiring frequent use of his inhaler. Patient states that he developed a cough and has been having shortness of breath along with it. Cough is productive of clear sputum. He endorses a 20lb weight loss over the past month. Denies night sweats , fevers, chills, back pain, chest pain, abdominal pain, n/v/d, headaches, swelling, recent travel, recent surgeries. He smokes 1-2 cigarettes/day but stopped last week due to the coughing. Upon chart review, patient is noted to have 2.5cm ground glass opacity in L lower lobe suspicious for neoplasm. 12/28 echo: EF 65-70% PMD: Madi PMH: see hpi PSH: see hpi Meds; see med rec Allergies: nkda Social: 1-2 cigarettes/day Past History - Past Medical History Allergies/Adverse Reactions: Allergies Allergy/AdvReac Type Severity Reaction Status Date / Time No Known Allergies Allergy Verified 12/23/18 17:48 Home Medications: Ambulatory Orders Tamsulosin HCl [Flomax -] 0.4 mg PO DAILY@0830 #30 cap.er.24h 08/24/14 Ranitidine HCl [Zantac] 150 mg PO BID 07/20/17 Rosuvastatin Calcium [Crestor] 40 mg PO DAILY 07/20/17 Apixaban [Eliquis -] 5 mg PO BID #60 tablet 12/25/18 Acetaminophen [Tylenol] 325 mg PO PRN 04/30/19 Furosemide [Lasix] 20 mg PO DAILY 04/30/19 Hydrocodone Bitartrate [Zohydro ER] 1 tab PO PRN 04/30/19 Ibuprofen [Advil -] 200 mg PO PRN 04/30/19 Prednisolone [Millipred] 5 mg PO DAILY 04/30/19 Albuterol Sulfate Inhaler - [Ventolin Hfa Inhaler -] 1 - 2 inh PO PRN 05/08/19 Fluticasone/Salmeterol [Advair 250-50 Diskus] 1 each IH DAILY 05/08/19 Anemia: No Asthma: Yes Cancer: Yes (H/O PROSTATE) Cardiac Disorders: Yes (stents, DC x 2) CVA: No COPD: Yes Dementia: No Diabetes: No GI Disorders: No Disorders: Yes (RETENTION, bladder tumor) HTN: Yes Hypercholesterolemia: Yes Liver Disease: No Seizures: No Thyroid Disease: No - Surgical History Cardiac Surgery: Yes (STENT) - Psycho Social/Smoking Cessation Hx Smoking Status: Yes Smoking History: Former smoker Have you smoked in the past 12 months: No Number of Cigarettes Smoked Daily: 3 Information on smoking cessation initiated: No 'Breaking Loose' booklet given: 12/24/18 Hx Alcohol Use: No Drug/Substance Use Hx: No Substance Use Type: None Hx Substance Use Treatment: No Review of Systems - Review of Systems Constitutional: Yes: Loss of Appetite, Unintentional Wgt. Loss. No: Chills, Fever HEENTM: No: Symptoms Reported Respiratory: Yes: Cough, Shortness of Breath, Productive cough. No: Hemoptysis Cardiac (ROS): No: Chest Pain, Lightheadedness, Palpitations, Syncope ABD/GI: No: Symptoms Reported : No: Symptoms Reported Musculoskeletal: No: Symptoms Reported Integumentary: No: Symptoms Reported Neurological: No: Symptoms reported *Physical Exam - Vital Signs Last Vital Signs Temp Pulse Resp BP Pulse Ox 97.9 F 95 H 24 H 137/77 100 06/16/19 12:56 06/16/19 12:56 06/16/19 12:56 06/16/19 12:56 06/16/19 12:56 - Physical Exam General Appearance: Yes: Appropriately Dressed, Moderate Distress, Thin HEENT: positive: EOMI, TEVIN, Normal ENT Inspection Neck: positive: Trachea midline, Supple. negative: Lymphadenopathy (R), Lymphadenopathy (L) Respiratory/Chest: positive: Labored Respiration, Rhonchi, Other (poor breath sounds, diffuse rhonchi, wheezing in [place]ER[place]) Cardiovascular: positive: Regular Rhythm, Regular Rate, S1, S2. negative: Edema , JVD, Murmur Vascular Pulses: Dorsalis-Pedis (R): 2+, Doralis-Pedis (L): 2+ Gastrointestinal/Abdominal: positive: Normal Bowel Sounds, Soft. negative: Tender Musculoskeletal: negative: CVA Tenderness Extremity: positive: Normal Capillary Refill. negative: Pedal Edema, Swelling Integumentary: positive: Normal Color, Dry, Warm Neurologic: positive: liquefier II-XII NML intact, Fully Oriented, Alert, Normal Mood/ Affect, Normal Response, Motor Strength 01/13 ED Treatment Course - LABORATORY CBC & Chemistry Diagram: 06/16/19 13:21 06/16/19 13:21 - RADIOLOGY Radiology Studies Ordered: Category Date Time Status CHEST X-RAY PORTABLE* [RAD] Stat Radiology 06/16/19 13:01 Ordered Medical Decision Making - Medical Decision Making 06/16/19 13:42 83yo M with PMH of COPD, Afib, CHF, CAD, HTN, HLD presenting with SOB. vitals: tacypnea, saturating well on RA, afebrile. ddx includes but not limited to copd exacerbation, pna, ptx, pe, malignancy/mass , acs, chf, effusion, pericarditis, tamponade likely copd exacerbation; however cannot rule out pe due to malignancy ( although patient is on AC) or sob due to malignancy. ordered labs including trop, bnp, coags, ekg, cxr -solumedrol, mg, duoneb treatments, Bipap due to increased work of breathing. pt also stating he has lost weight, will consider chest CT 06/16/19 14:19 patient appears more comfortable after treatments. labs significant for eosinophila otherwise wnl. negative trop, bnp not elevated making fluid overload/chf unlikely. pending ekg. CTA to r/o pe and check for changes in opacity which ws 2.5cm. 06/16/19 15:16 after medications: lung sounds reveal diffuse wheezing 06/16/19 18:33 CT: No CT evidence of pulmonary embolus or aortic dissection. Advanced pulmonary emphysematous changes. Ill-defined round opacity/mass within the left lower lobe superior segment concerning for malignancy versus focal infectious pneumonia patient is no longer working for breathing, HR in the 70s. saturating well on RA. Will admit for COPD exacerbation Given 500mg azithromycin Discharge - Discharge Information Problems reviewed: Yes Clinical Impression/Diagnosis: COPD (chronic obstructive pulmonary disease) Qualifiers: COPD type: unspecified COPD Qualified Code(s): J44.9 - Chronic obstructive pulmonary disease, unspecified Condition: Good - Admission Yes - Follow up/Referral - Patient Discharge Instructions - Post Discharge Activity
[2019-06-16] MEDS ORDERED: MAGNESIUM 1GM/D5W - 2 GM/200 ML IVPB IVPB ONE (13:36)
[2019-06-16] MEDS ORDERED: methylPREDNISolone NA SUCC 125 MG/2 ML VIAL ONE (13:36)
[2019-06-16 13:46] LABS: INR 1.42 (0.83-1.09); PROTHROMBIN TIME (PATIENT) 16.8 SEC (9.7-13.0)
[2019-06-16 14:12] LABS: ALK PHOS 62 U/L (45-117); ANION GAP 10 MMOL/L (8-16); BILIRUBIN,TOTAL 0.5 mg/dL (0.2-1); BLOOD UREA NITROGEN 17.9 mg/dL (7-18); CALCIUM 8.9 mg/dL (8.5-10.1); CHLORIDE 106 mmol/L (98-107); CO2 25 mmol/L (21-32); CREATININE 1.1 mg/dL (0.55-1.3); GLUCOSE,RANDOM 110 mg/dL (74-106); MAGNESIUM 2.2 mg/dL (1.8-2.4); N-TERMINAL BNP 74.5 pg/ml (5-450); POTASSIUM 4.7 mmol/L (3.5-5.1); SGOT/AST 26 U/L (15-37); SGPT/ALT 15 U/L (13-61); SODIUM 141 mmol/L (136-145); TOT PROT 7.7 g/dl (6.4-8.2)
[2019-06-16] MEDS ORDERED: ALBUTEROL SO4 0.083% IH SOL 2.5 MG/3 ML VIAL.NEB. NEB ONE ×2 (14:37→14:49)
[2019-06-16] MEDS ORDERED: AZITHROMYCIN IVPB 500 MG in DEXTROSE 5%-WATER - 250 ML IVPB ONE (14:38)
--- NOTE | 2019-06-16 14:43 | PDOC ---
Documentation entered by Edgar Mccabe SCRIBE, acting as scribe for Larry Smith MD. Larry Smith MD: This documentation has been prepared by the Eliot marcano Daniel, SCRIBE, under my direction and personally reviewed by me in its entirety. I confirm that the documentation accurately reflects all work, treatment, procedures, and medical decision making performed by me. Attending Attestation - Resident Resident Name: CaitlynMarietta - ED Attending Attestation I have performed the following: I have examined & evaluated the patient, The case was reviewed & discussed with the resident, I agree w/resident's findings & plan, Exceptions are as noted - HPI HPI: 06/16/19 13:51 The patient is an 83 year old with a past medical history of bronchitis, asthma , COPD, CHF, CAD s/p stents, afib, prostate cancer, and BPH here today for evaluation of shortness of breath. Patient notes worsening shortness of breath that began as a productive cough of white sputum over the past week. He reports using nebulizer treatments, cough drops, cough syrup, and his inhaler with no relief. He also notes a 20 pound weight loss over the past month. Of note, pt had CT chest in December 2018 that showed possible malignancy. Pt states he could not get a biopsy 2/2 to concerns that his lungs would collapse. Patient denies headache, lightheadedness, focal weakness/numbness. Denies fever , chills. Denies chest pain. Denies nausea, vomiting, diarrhea, abdominal pain. Denies LE edema. Allergies: NKA Social history: 1-2 cigarettes a day but stopped last week due to the coughing. PCP: Armani Barraza - Physicial Exam PE: 06/16/19 13:51 GENERAL: Awake, alert, and fully oriented, in no acute distress EYES: PERRLA, EOMI, sclera anicteric, conjunctiva clear ENT: Nares patent, oropharynx clear without exudates. Moist mucosa NECK: Normal ROM, supple, no lymphadenopathy, JVD, or masses LUNGS: Very distant breath sounds, mild exp wheeze at R lung base. No crackles or rhonchi HEART: Regular rate and rhythm, normal S1 and S2, no murmurs, rubs or gallops ABDOMEN: Soft, nontender, normoactive bowel sounds. No guarding, no rebound. No masses EXTREMITIES: Normal range of motion, no edema. No clubbing or cyanosis. No cords , erythema, or tenderness NEUROLOGICAL: Normal speech, cranial nerves intact, equal strength and sensation b/l SKIN: Warm, Dry, normal turgor, no rashes or lesions noted. - Medical Decision Making 06/16/19 14:41 83yo M with MMP including COPD, asthma, CHF, CAD, lung mass, smoking presents to the ED with SOB and productive cough Vitals with tachypnea Exam with distant BS and wheezing DDx includes COPD vs PE vs PNA vs bronchitis vs CHF Plan: -monitor -labs -nebs, steroids, mg -CTA -likely admit Heart Score/ECG Review #1 06/16/19 14:54 Twelve-lead EKG was performed and reviewed by me. Normal sinus rhythm, rate 76. Normal axis. Incomplete left bundle branch block. No ST elevations. Flipped T wave in aVL. When compared to EKG from December 2018, no significant change.
[2019-06-16] MEDS ORDERED: AZITHROMYCIN IVPB 500 MG/250 ML BAG IVPB ONE (14:51)
[2019-06-16 18:32] LABS: URINE APPEARANCE Clear; URINE BILIRUBIN Negative (NEGATIVE); URINE COLOR Yellow; URINE GLUCOSE (UA) Negative (NEGATIVE); URINE KETONE Negative (NEGATIVE); URINE LEUK ESTERASE Negative (NEGATIVE); URINE NITRITE Negative (NEGATIVE); URINE PROTEIN Negative (NEGATIVE); URINE UROBILINOGEN 0.2 mg/dL (0.2-1.0)
[2019-06-16 18:50] LABS: URINE BACTERIA FEW /hpf (NEGATIVE); URINE WBC 0-3 /hpf (0-5)
--- NOTE | 2019-06-16 19:23 | HP ---
Admitting History and Physical - Primary Care Physician PCP: Dr. Sinha - Admission Chief Complaint: SOB, Cough over a week History of Present Illness: 83 year old male with PMH of asthma, COPD, CHF, CAD( stents x3), A-fib (on Eliquis), BPH and prostate CA arrived to ED for SOB, and Cough over a week. SOB and cough has been getting worse over a week, patient has tried nebulizer, cough syrup, inhaler without relief. Cough has been productive with clear sputum. Patient also states he lost 20 lbs past month, chart review shows in ED CT chest 2.5cm ground glass opacity in L lower lobe in December, possible malignancy. Patient denies fever, chills, nights sweats, Chest pain, headache, dizziness, N/ V, diarrhea, constipation. History Source: Patient Limitations to Obtaining History: No Limitations - Past Medical History Cardiovascular: Yes: AFIB (flutter), CAD, HTN, Hyperlipdemia, [place] (OK x2) Pulmonary: Yes: Asthma, COPD Gastrointestinal: Yes: GERD Musculoskeletal: Yes: Chronic low back pain - Past Surgical History Additional Past Surgical History: CAD ( stents x3 ) - Smoking History Smoking history: Former smoker Have you smoked in the past 12 months: Yes Aproximately how many cigarettes per day: 1 If you are a former smoker, when did you quit?: stopped over a week due to cough - Alcohol/Substance Use Hx Alcohol Use: No History of Substance Use: reports: None - Social History ADL: Independent History of Recent Travel: No Home Medications - Allergies Allergies/Adverse Reactions: Allergies Allergy/AdvReac Type Severity Reaction Status Date / Time No Known Allergies Allergy Verified 12/23/18 17:48 - Home Medications Home Medications: Ambulatory Orders Tamsulosin HCl [Flomax -] 0.4 mg PO DAILY@0830 #30 cap.er.24h 08/24/14 Ranitidine HCl [Zantac] 150 mg PO BID 07/20/17 Rosuvastatin Calcium [Crestor] 40 mg PO DAILY 07/20/17 Apixaban [Eliquis -] 5 mg PO BID #60 tablet 12/25/18 Acetaminophen [Tylenol] 325 mg PO PRN 04/30/19 Furosemide [Lasix] 20 mg PO DAILY 04/30/19 Hydrocodone Bitartrate [Zohydro ER] 1 tab PO PRN 04/30/19 Ibuprofen [Advil -] 200 mg PO PRN 04/30/19 Prednisolone [Millipred] 5 mg PO DAILY 04/30/19 Albuterol Sulfate Inhaler - [Ventolin Hfa Inhaler -] 1 - 2 inh PO PRN 05/08/19 Fluticasone/Salmeterol [Advair 250-50 Diskus] 1 each IH DAILY 05/08/19 Family Medical History Family Hx Diabetes: Sister Review of Systems - Review of Systems Constitutional: reports: Unintentional Wgt. Loss (20lb weight loss over the past month.) HENT: reports: No Symptoms Neck: reports: No Symptoms Cardiovascular: reports: No Symptoms Respiratory: reports: Cough, SOB, Wheezing Gastrointestinal: reports: No Symptoms Genitourinary: reports: No Symptoms Musculoskeletal: reports: No Symptoms Integumentary: reports: No Symptoms Neurological: reports: No Symptoms Endocrine: reports: No Symptoms Hematology/Lymphatic: reports: No Symptoms Psychiatric: reports: No Symptoms Physical Examination Vital Signs: Vital Signs Temperature 97.9 F 06/16/19 12:56 Pulse Rate 101 H 06/16/19 13:40 Respiratory Rate 26 H 06/16/19 13:40 Blood Pressure 137/77 06/16/19 12:56 O2 Sat by Pulse Oximetry (%) 96 06/16/19 13:40 Constitutional: Yes: Mild Distress, Thin Eyes: Yes: Conjunctiva Clear, EOM Intact HENT: Yes: Atraumatic, Normocephalic Neck: Yes: Supple, Trachea Midline Cardiovascular: Yes: Regular Rate and Rhythm Respiratory: Yes: Cough, On Nasal O2, SOB, SOB on Exertion, Wheezes Gastrointestinal: Yes: Normal Bowel Sounds, Soft Musculoskeletal: Yes: WNL Extremities: Yes: WNL Edema: No Integumentary: Yes: WNL Neurological: Yes: Alert, Oriented Psychiatric: Yes: Alert, Oriented Labs: CBC, BMP 06/16/19 13:21 06/16/19 13:21 Imaging - Results Chest X-ray: Report Reviewed (reveals hyperinflation, scarring, or chronic atelectasi right upper lobe) Cat Scan: Report Reviewed (CT: No CT evidence of pulmonary embolus or aortic dissection. Advanced pulmonary emphysematous changes. Ill-defined round opacity/ mass within the left lower lobe superior segment concerning for malignancy versus focal infectious pneumonia) Problem List - Problems (1) Acute exacerbation of chronic obstructive pulmonary disease (COPD) Code(s): J44.1 - CHRONIC OBSTRUCTIVE PULMONARY DISEASE W (ACUTE) EXACERBATION (2) CHF (congestive heart failure) Code(s): I50.9 - HEART FAILURE, UNSPECIFIED (3) Atrial fibrillation Code(s): I48.91 - UNSPECIFIED ATRIAL FIBRILLATION (4) BPH (benign prostatic hyperplasia) Code(s): N40.0 - BENIGN PROSTATIC HYPERPLASIA WITHOUT LOWER URINRY TRACT SYMP (5) CAD (coronary artery disease) Code(s): I25.10 - ATHSCL HEART DISEASE OF [place] CORONARY ARTERY W/O ANG PCTRS (6) HLD (hyperlipidemia) Code(s): E78.5 - HYPERLIPIDEMIA, UNSPECIFIED (7) HTN (hypertension) Code(s): I10 - ESSENTIAL (PRIMARY) HYPERTENSION (8) Subtherapeutic international normalized ratio (INR) Code(s): R79.1 - ABNORMAL COAGULATION PROFILE Assessment/Plan 83 year old male with PMH of asthma, COPD, CHF, CAD( stents x3), A-fib (on Eliquis), BPH and prostate CA arrived to ED for worsening SOB, and Cough over a week. # Acute COPD exacerbation CXR; reveals hyperinflation, scarring, or chronic atelectasi right upper lobe CT Cheest: No evidence of pulmonary embolus or aortic dissection. Advanced pulmonary emphysematous changes. Ill-defined round opacity/mass within the left lower lobe superior segment concerning for malignancy versus focal infectious pneumonia In Ed given Methylprednisolone, Magnesium sulfate, Albuterol and Azithromax - Continue with 02 via NC - Continue with methylprednisone 40 mg IV 6 hours - Continue with nebulizer q 6 hours - Tylenol q 6 hours PRN - Repeat cbc, bmp in AM - Albuterol Sulfate Inhaler 1 - 2 inh PO PRN - Fluticasone/Salmeterol 1 each IH DAILY # HTN/HLD, CAD - monitor BP closely - Rosuvastatin Calcium 40 mg PO DAILY # A-fib EKG: NSR rate 76, no s/t changes - Apixaban 5 mg PO BID # CHF - Furosemide 20 mg PO DAILY - Monitor I & O - Fluid restriction # BPH - Tamsulosin HCl 0.4 mg PO DAILY # GERD - Continue with Zantac BID Visit type - Emergency Visit Emergency Visit: Yes ED Registration Date: 06/16/19 Care time: The patient presented to the Emergency Department on the above date and was hospitalized for further evaluation of their emergent condition. - New Patient This patient is new to me today: Yes Date on this admission: 06/16/19 - Critical Care Critical Care patient: No
[2019-06-16] MEDS ORDERED: ACETAMINOPHEN 325 MG TABLET (FP) PO PRN (19:47)
[2019-06-16] MEDS ORDERED: ALBUTEROL SO4 8 GM HFA INHALER IH PRN (19:48)
[2019-06-16] MEDS: methylPREDNISolone NA SUCC 40 MG/1 ML VIAL IVPUSH SCH (20:44)
[2019-06-16] MEDS: APIXABAN 5 MG TABLET PO SCH (21:10)
[2019-06-16] MEDS: RANITIDINE HCL 150 MG TABLET (FP) PO SCH (21:10)
[2019-06-16] MEDS: IPRATROPIUM BR 0.02% 0.5 MG/2.5 ML VIAL.NEB. NEB PRN (23:13)
[2019-06-16] MEDS: ALBUTEROL SO4 0.083% IH SOL 2.5 MG/3 ML VIAL.NEB. NEB PRN (23:14)
[2019-06-17] MEDS: methylPREDNISolone NA SUCC 40 MG/1 ML VIAL IVPUSH SCH ×4 (03:03→21:56)
[2019-06-17] MEDS: ALBUTEROL SO4 0.083% IH SOL 2.5 MG/3 ML VIAL.NEB. NEB PRN ×4 (04:31→20:15)
[2019-06-17] MEDS: IPRATROPIUM BR 0.02% 0.5 MG/2.5 ML VIAL.NEB. NEB PRN ×4 (04:31→20:15)
[2019-06-17 07:37] LABS: HEMATOCRIT 40.2 % (35.4-49); HEMOGLOBIN 13.2 GM/dL (11.7-16.9); MCH 28.2 pg (25.7-33.7); MCHC 32.7 g/dl (32.0-35.9); MEAN CELL VOLUME 86.1 fl (80-96); MEAN PLT VOLUME 7.5 fl (7.5-11.1); PLATELET COUNT 226 K/MM3 (134-434); RBC 4.67 M/mm3 (4.00-5.60); RDW 14.5 % (11.9-15.9); WHITE BLOOD COUNT 2.6 K/mm3 (4.0-10.0)
[2019-06-17 07:56] LABS: BLOOD UREA NITROGEN 19.3 mg/dL (7-18); CALCIUM 8.9 mg/dL (8.5-10.1); POTASSIUM 4.1 mmol/L (3.5-5.1)
--- NOTE | 2019-06-17 10:26 | EKG ---
Test Reason : Blood Pressure : / mmHG Vent. Rate : 076 BPM Atrial Rate : 076 BPM P-R Int : 172 ms QRS Dur : 106 ms QT Int : 406 ms P-R-T Axes : 082 012 081 degrees QTc Int : 456 ms NORMAL SINUS RHYTHM INCOMPLETE LEFT BUNDLE BRANCH BLOCK BORDERLINE ECG WHEN COMPARED WITH ECG OF 24-DEC-2018 07:45, NO SIGNIFICANT CHANGE WAS FOUND Confirmed by KENDRICK BAUMAN MD ([id number]) on 06/17/2019 10:25:58 AM Referred By: Confirmed By:KENDRICK BAUMAN MD
[2019-06-17] MEDS: TAMSULOSIN HCL 0.4 MG CAP PO SCH (10:28)
[2019-06-17] MEDS: FUROSEMIDE 40 MG TABLET (FP) PO SCH (10:28)
[2019-06-17] MEDS ORDERED: PT OWN MED DRAWER 7, Y5N ONE (10:28)
[2019-06-17] MEDS: APIXABAN 5 MG TABLET PO SCH ×2 (10:29→21:55)
[2019-06-17] MEDS: RANITIDINE HCL 150 MG TABLET (FP) PO SCH ×2 (10:29→21:55)
[2019-06-17] MEDS: BUDESONIDE/FORMETEROL FUMARATE 80/4.5 mcg INHALER IH SCH ×2 (11:44→21:55)
--- NOTE | 2019-06-17 13:17 | CON.PULM ---
Consult Consult Specialty:: PULMONARY Referred by:: Dr Sinha Reason for Consultation:: shortness of breath - History of Present Illness Chief Complaint: shortness of breath History of Present Illness: 83yo male with h/o COPD, CAD, atrial fibrillation, prostate ca who was admitted for worsening shortness of breath and cough x 1 week. Denies chest pain or discomfort. +cough productive of clear sputum and wheezing. No fevers, chills or sweats. No sick contacts or recent travel. Of note, was scheduled for a lung biopsy in April but declined after hearing the potential risks/ complications. He states that he has been told of a nodule and scarring in his lung starting 35 years ago. There is a LLL nodule which was stable until December, now increased in size measuring 2.5cm. He is a long time smoker, started at age 11, still occasionally smokes. He worked in construction. - History Source History Provided By: Patient, Medical Record Limitations to Obtaining History: No Limitations - Past Medical History Cardio/Vascular: Yes: AFIB (flutter), CAD, HTN, Hyperlipdemia, [place] ([place] x2) Pulmonary: Yes: Asthma, COPD Gastrointestinal: Yes: GERD Musculoskeletal: Yes: Chronic low back pain - Alcohol/Substance Use Hx Alcohol Use: No History of Substance Use: reports: None - Smoking History Smoking history: Former smoker Have you smoked in the past 12 months: Yes Aproximately how many cigarettes per day: 1 If you are a former smoker, when did you quit?: stopped over a week due to cough - Social History ADL: Independent History of Recent Travel: No Home Medications - Allergies Allergies/Adverse Reactions: Allergies Allergy/AdvReac Type Severity Reaction Status Date / Time No Known Allergies Allergy Verified 12/23/18 17:48 - Home Medications Home Medications: Ambulatory Orders Tamsulosin HCl [Flomax -] 0.4 mg PO DAILY@0830 #30 cap.er.24h 08/24/14 Ranitidine HCl [Zantac] 150 mg PO BID 07/20/17 Rosuvastatin Calcium [Crestor] 40 mg PO DAILY 07/20/17 Apixaban [Eliquis -] 5 mg PO BID #60 tablet 12/25/18 Furosemide [Lasix] 40 mg PO DAILY 04/30/19 Ibuprofen [Advil -] 200 mg PO PRN 04/30/19 Prednisolone [Millipred] 5 mg PO DAILY 04/30/19 Albuterol Sulfate Inhaler - [Ventolin Hfa Inhaler -] 1 - 2 inh PO PRN 05/08/19 Fluticasone/Salmeterol [Advair 250-50 Diskus] 1 each IH DAILY 05/08/19 Hydrocodone/Ibuprofen [Hydrocodone-Ibuprofen 7.5-200] 1 each PO PRN PRN Review of Systems - Review of Systems Constitutional: reports: Unintentional Wgt. Loss. denies: Chills, Fever Eyes: denies: Recent Change in Vision HENT: denies: Nasal Congestion, Throat Pain Neck: denies: Stiffness, Tenderness Cardiovascular: reports: Shortness of Breath. denies: Chest Pain, Palpitations Respiratory: reports: Cough, Exercise Intolerance, SOB on Exertion, Wheezing. denies: Hemoptysis Gastrointestinal: denies: Abdominal Pain, Nausea, Vomiting Genitourinary: denies: Dysuria, Hematuria Neurological: denies: Dizziness, Headache Endocrine: reports: Unexplained Weight Loss Physical Exam Vital Sings: Vital Signs Temperature 98 F 06/17/19 05:53 Pulse Rate 98 H 06/17/19 05:53 Respiratory Rate 22 H 06/17/19 05:53 Blood Pressure 128/79 06/17/19 05:53 O2 Sat by Pulse Oximetry (%) 97 06/16/19 22:05 Constitutional: Yes: Calm Eyes: Yes: Conjunctiva Clear, EOM Intact HENT: Yes: Atraumatic, Normocephalic Neck: Yes: Supple, Trachea Midline Cardiovascular: Yes: Regular Rate and Rhythm Respiratory: Yes: Rhonchi, Wheezes ...Clubbing: No Gastrointestinal: Yes: Normal Bowel Sounds, Soft. No: Tenderness Edema: No Neurological: Yes: Alert, Oriented Labs: CBC, BMP 06/17/19 07:00 06/17/19 07:00 Imaging - Results Chest X-ray: Report Reviewed, Image Reviewed Cat Scan: Image Reviewed (severe emphysematous changes, LLL nodule) Problem List - Problems (1) Acute exacerbation of chronic obstructive pulmonary disease (COPD) Code(s): J44.1 - CHRONIC OBSTRUCTIVE PULMONARY DISEASE W (ACUTE) EXACERBATION (2) Lung nodule Code(s): R91.1 - SOLITARY PULMONARY NODULE (3) Atrial fibrillation Code(s): I48.91 - UNSPECIFIED ATRIAL FIBRILLATION (4) Atrial flutter Code(s): I48.92 - UNSPECIFIED ATRIAL FLUTTER (5) CAD (coronary artery disease) Code(s): I25.10 - ATHSCL HEART DISEASE OF [place] CORONARY ARTERY W/O ANG PCTRS (6) Pulmonary hypertension Code(s): I27.20 - PULMONARY HYPERTENSION, UNSPECIFIED Assessment/Plan Acute COPD Exacerbation Emphysema Lung Nodule Atrial Fibrillation Pulmonary HTN CAD Prostate Ca - IV medrol - inhaled bronchodilators standing and PRN - o2 to keep SpO2 >90% - rate control - continue anticoagulation - will need PET scan as outpt as pt with high risk for pneumothorax with needle biopsy Thank you for this consult Kwasi Vela MD
--- NOTE | 2019-06-17 13:50 | PN ---
Progress Note (short form) - Note Progress Note: pt seen/examined chart reviewed feels better decreased sob. Vital Signs Temp 98 F 06/17/19 05:53 Pulse 98 H 06/17/19 05:53 Resp 22 H 06/17/19 05:53 BP 128/79 06/17/19 05:53 Pulse Ox 97 06/16/19 22:05 Intake & Output 06/16/19 06/17/19 06/17/19 23:59 11:59 23:59 Intake Total 100 200 Balance 100 200 Weight 159 lb Intake: IVPB 100 Oral 200 Other: Voiding Method Toilet # Unmeasured Voids Void 1 Bowel Movement No Height 6 ft 1 in Body Mass Index (BMI) 20.9 Weight Measurement [facility] Method Est/Stated by Patient Active Medications Acetaminophen (Tylenol -) 650 mg PO Q6H PRN PRN Reason: PAIN OR FEVER Albuterol Sulfate (Ventolin 0.083% Nebulizer Soln -) 1 amp NEB Q6H PRN PRN Reason: SHORT OF BREATH/WHEEZING Last Admin: 06/17/19 11:40 Dose: 1 amp Apixaban (Eliquis -) 5 mg PO BID [facility] Last Admin: 06/17/19 10:29 Dose: 5 mg Budesonide/Formoterol Fumarate (Symbicort 80/4.5mcg -) 2 puff IH BID [facility] Last Admin: 06/17/19 11:44 Dose: 2 puff Furosemide (Lasix -) 20 mg PO DAILY [facility] Last Admin: 06/17/19 10:28 Dose: 20 mg Ipratropium [place] (Atrovent 0.02% Nebulizer -) 1 amp NEB Q6H PRN PRN Reason: WHEEZING Last Admin: 06/17/19 11:40 Dose: 1 amp Methylprednisolone Sodium Succinate (Solu-Medrol -) 40 mg IVPUSH Q6H-IV [facility] Last Admin: 06/17/19 10:29 Dose: 40 mg Ranitidine HCl (Zantac -) 150 mg PO BID [facility] Last Admin: 06/17/19 10:29 Dose: 150 mg Rosuvastatin Calcium (Crestor -) 40 mg PO HS [facility] Tamsulosin HCl (Flomax -) 0.4 mg PO DAILY@0830 [facility] Last Admin: 06/17/19 10:28 Dose: 0.4 mg CBC, BMP 06/17/19 07:00 06/17/19 07:00 CTA - report Pending Ct chest-- 12/28 - Reviewed -- D/W Pts PMD Dr. Barraza -- Had PET scan - Done already-- Strongly +ve - Biopsy planned -- Physical Examination Constitutional: Yes: comfortable Eyes: Yes: Conjunctiva Clear, EOM Intact HENT: Yes: Atraumatic, Normocephalic Neck: Yes: Supple, Trachea Midline Cardiovascular: Yes: Regular Rate and Rhythm Respiratory: Yes: Cough, scattered wheezes Gastrointestinal: Yes: Normal Bowel Sounds, Soft Extremities: Yes: WNL Edema: No Integumentary: Yes: WNL Neurological: Yes: Alert, Oriented Psychiatric: Yes: Alert, Oriented Imaging - Results Chest X-ray: Report Reviewed (reveals hyperinflation, scarring, or chronic atelectasi right upper lobe) Cat Scan: Report Reviewed (CT: No CT evidence of pulmonary embolus or aortic dissection. Advanced pulmonary emphysematous changes. Ill-defined round opacity/ mass within the left lower lobe superior segment concerning for malignancy versus focal infectious pneumonia) Problem List - Problems (1) Acute exacerbation of chronic obstructive pulmonary disease (COPD) Code(s): J44.1 - CHRONIC OBSTRUCTIVE PULMONARY DISEASE W (ACUTE) EXACERBATION (2) CHF (congestive heart failure) Code(s): I50.9 - HEART FAILURE, UNSPECIFIED (3) Atrial fibrillation Code(s): I48.91 - UNSPECIFIED ATRIAL FIBRILLATION (4) BPH (benign prostatic hyperplasia) Code(s): N40.0 - BENIGN PROSTATIC HYPERPLASIA WITHOUT LOWER URINRY TRACT SYMP (5) CAD (coronary artery disease) Code(s): I25.10 - ATHSCL HEART DISEASE OF [place] CORONARY ARTERY W/O ANG PCTRS (6) HLD (hyperlipidemia) Code(s): E78.5 - HYPERLIPIDEMIA, UNSPECIFIED (7) HTN (hypertension) Code(s): I10 - ESSENTIAL (PRIMARY) HYPERTENSION (8) Subtherapeutic international normalized ratio (INR) Code(s): R79.1 - ABNORMAL COAGULATION PROFILE Assessment/Plan 83 year old male with PMH of asthma, COPD, CHF, CAD( stents x3), A-fib (on Eliquis), BPH and prostate CA arrived to ED for worsening SOB, and Cough over a week. Acute COPD Exacerbation Emphysema Atrial Fibrillation Pulmonary HTN CAD Prostate Ca +ve PET Scan for lung mass Continue present care Will ask Dr. Dorsey to assess for Biopsy If planned this admission - Then will hold A/C Will follow D/W Dr. Vela also.
[2019-06-17] MEDS: ROSUVASTATIN CA 20 MG TABLET (FP) PO SCH (21:55)
[2019-06-17] MEDS ORDERED: ROSUVASTATIN CA 40 MG TABLET PO SCH (22:00)
[2019-06-18] MEDS: methylPREDNISolone NA SUCC 40 MG/1 ML VIAL IVPUSH SCH ×3 (02:35→23:02)
[2019-06-18] MEDS ORDERED: PT OWN MED DRAWER 7, Y5N ONE (10:24)
[2019-06-18] MEDS: TAMSULOSIN HCL 0.4 MG CAP PO SCH (10:25)
[2019-06-18] MEDS: APIXABAN 5 MG TABLET PO SCH ×2 (10:25→22:53)
[2019-06-18] MEDS: FUROSEMIDE 40 MG TABLET (FP) PO SCH (10:25)
[2019-06-18] MEDS: BUDESONIDE/FORMETEROL FUMARATE 80/4.5 mcg INHALER IH SCH ×2 (10:25→23:02)
[2019-06-18] MEDS: RANITIDINE HCL 150 MG TABLET (FP) PO SCH ×2 (10:25→22:53)
--- NOTE | 2019-06-18 10:50 | PN ---
Progress Note (short form) - Note Progress Note: PULMONARY Breathing better today. Less cough and wheezing. Vital Signs Period Temp Pulse Resp BP Sys/Liz Pulse Ox Last 24 Hr 97.7 F-98.2 F 84-108 18-20 100-158/59-96 94-97 Gen: less tachypneic at rest Heart: RRR Lung: scattered rhonchi Abd: soft, nontender Ext; no edema CBC, BMP 06/17/19 07:00 06/17/19 07:00 Active Medications Acetaminophen (Tylenol -) 650 mg PO Q6H PRN PRN Reason: PAIN OR FEVER Albuterol Sulfate (Ventolin 0.083% Nebulizer Soln -) 1 amp NEB Q6H PRN PRN Reason: SHORT OF BREATH/WHEEZING Last Admin: 06/17/19 20:15 Dose: 1 amp Apixaban (Eliquis -) 5 mg PO BID [facility] Last Admin: 06/18/19 10:25 Dose: 5 mg Budesonide/Formoterol Fumarate (Symbicort 80/4.5mcg -) 2 puff IH BID [facility] Last Admin: 06/18/19 10:25 Dose: 2 puff Furosemide (Lasix -) 20 mg PO DAILY [facility] Last Admin: 06/18/19 10:25 Dose: 20 mg Ipratropium [place] (Atrovent 0.02% Nebulizer -) 1 amp NEB Q6H PRN PRN Reason: WHEEZING Last Admin: 06/17/19 20:15 Dose: 1 amp Methylprednisolone Sodium Succinate (Solu-Medrol -) 40 mg IVPUSH Q6H-IV [facility] Last Admin: 06/18/19 10:25 Dose: 40 mg Ranitidine HCl (Zantac -) 150 mg PO BID [facility] Last Admin: 06/18/19 10:25 Dose: 150 mg Rosuvastatin Calcium (Crestor -) 40 mg PO HS [facility] Last Admin: 06/17/19 21:55 Dose: 40 mg Tamsulosin HCl (Flomax -) 0.4 mg PO DAILY@0830 [facility] Last Admin: 06/18/19 10:25 Dose: 0.4 mg A/P Acute COPD Exacerbation Emphysema Lung Nodule Atrial Fibrillation Pulmonary HTN CAD Prostate Ca - continue medrol, can likely change to PO prednisone 40mg daily in AM if continues to improve - inhaled bronchodilators standing and PRN - o2 to keep SpO2 >90% - rate control - continue anticoagulation - PET scan as outpt reportedly strongly avid, recommend biopsy but can be done as outpt Problem List - Problems (1) Acute exacerbation of chronic obstructive pulmonary disease (COPD) Code(s): J44.1 - CHRONIC OBSTRUCTIVE PULMONARY DISEASE W (ACUTE) EXACERBATION (2) Lung nodule Code(s): R91.1 - SOLITARY PULMONARY NODULE (3) Atrial fibrillation Code(s): I48.91 - UNSPECIFIED ATRIAL FIBRILLATION (4) Atrial flutter Code(s): I48.92 - UNSPECIFIED ATRIAL FLUTTER (5) CAD (coronary artery disease) Code(s): I25.10 - ATHSCL HEART DISEASE OF [place] CORONARY ARTERY W/O ANG PCTRS (6) Pulmonary hypertension Code(s): I27.20 - PULMONARY HYPERTENSION, UNSPECIFIED
--- NOTE | 2019-06-18 11:51 | PN ---
Progress Note (short form) - Note Progress Note: No distress tells me that he gets SOB on ambulation at times no cough current smoker Vital Signs - 24 hr 06/17/19 06/17/19 06/17/19 13:00 17:06 21:00 Temperature 98.1 F 98.2 F 97.9 F Pulse Rate 95 H 94 H 108 H Respiratory 20 20 18 Rate Blood Pressure 105/64 110/67 158/96 O2 Sat by Pulse 94 L Oximetry (%) 06/18/19 06/18/19 06/18/19 00:20 01:00 06:00 Temperature 98 F 97.7 F Pulse Rate 84 89 Respiratory 20 20 Rate Blood Pressure 113/59 L 100/67 O2 Sat by Pulse 97 Oximetry (%) Current Medications Generic Name Dose Route Start Last Admin Trade Name Freq PRN Reason Stop Dose Admin Acetaminophen 650 mg 06/16/19 19:47 Tylenol - PO Q6H PRN PAIN OR FEVER Albuterol Sulfate 1 amp 06/16/19 19:53 06/17/19 20:15 Ventolin 0.083% Nebulizer Soln - NEB 1 amp Q6H PRN Administration SHORT OF BREATH/WHEEZING Apixaban 5 mg 06/16/19 22:00 06/18/19 10:25 Eliquis - PO 5 mg BID [facility] Administration Budesonide/Formoterol Fumarate 2 puff 06/17/19 10:00 06/18/19 10:25 Symbicort 80/4.5mcg - IH 2 puff BID [facility] Administration Furosemide 20 mg 06/17/19 10:00 06/18/19 10:25 Lasix - PO 20 mg DAILY [facility] Administration Ipratropium [place] 1 amp 06/16/19 19:50 06/17/19 20:15 Atrovent 0.02% Nebulizer - NEB 1 amp Q6H PRN Administration WHEEZING Methylprednisolone Sodium Succinate 40 mg 06/16/19 21:00 06/18/19 10:25 Solu-Medrol - IVPUSH 40 mg Q6H-IV [facility] Administration Ranitidine HCl 150 mg 06/16/19 22:00 06/18/19 10:25 Zantac - PO 150 mg BID [facility] Administration Rosuvastatin Calcium 40 mg 06/17/19 22:00 06/17/19 21:55 Crestor - PO 40 mg HS [facility] Administration Tamsulosin HCl 0.4 mg 06/17/19 08:30 06/18/19 10:25 Flomax - PO 0.4 mg DAILY@0830 [facility] Administration Physical Examination Constitutional: Yes: comfortable Eyes: Yes: Conjunctiva Clear, EOM Intact HENT: Yes: Atraumatic, Normocephalic Neck: Yes: Supple, Trachea Midline Cardiovascular: Yes: Regular Rate and Rhythm Respiratory: Yes: Cough, scattered wheezes Gastrointestinal: Yes: Normal Bowel Sounds, Soft Extremities: Yes: WNL Edema: No Integumentary: Yes: WNL Neurological: Yes: Alert, Oriented Psychiatric: Yes: Alert, Oriented Assessment/Plan 83 year old male with PMH of asthma, COPD, CHF, CAD( stents x3), A-fib (on Eliquis), BPH and prostate CA arrived to ED for worsening SOB, and Cough over a week. Acute COPD Exacerbation Emphysema Atrial Fibrillation Pulmonary HTN CAD Prostate Ca +ve PET Scan for lung mass Continue present care can not do biopsy now -- needs 5 days off NSAIDS and 2 days off Eliquis Pt also does not want to do the biopsy now on solumedrol Pulmonary follow up noted check Pre and post O2 sat ambulatory possible dc tomorrow on po prednisone Problem List - Problems (1) CHF (congestive heart failure) Code(s): I50.9 - HEART FAILURE, UNSPECIFIED (2) COPD (chronic obstructive pulmonary disease) Code(s): J44.9 - CHRONIC OBSTRUCTIVE PULMONARY DISEASE, UNSPECIFIED Qualifiers: COPD type: unspecified COPD Qualified Code(s): J44.9 - Chronic obstructive pulmonary disease, unspecified (3) Lung nodule Code(s): R91.1 - SOLITARY PULMONARY NODULE (4) Acute exacerbation of chronic obstructive pulmonary disease (COPD) Code(s): J44.1 - CHRONIC OBSTRUCTIVE PULMONARY DISEASE W (ACUTE) EXACERBATION (5) Atrial fibrillation Code(s): I48.91 - UNSPECIFIED ATRIAL FIBRILLATION (6) BPH (benign prostatic hyperplasia) Code(s): N40.0 - BENIGN PROSTATIC HYPERPLASIA WITHOUT LOWER URINRY TRACT SYMP (7) CAD (coronary artery disease) Code(s): I25.10 - ATHSCL HEART DISEASE OF [place] CORONARY ARTERY W/O ANG PCTRS
[2019-06-18] MEDS ORDERED: methylPREDNISolone NA SUCC 40 MG/1 ML VIAL IVPUSH SCH (12:00)
[2019-06-18] MEDS: IPRATROPIUM BR 0.02% 0.5 MG/2.5 ML VIAL.NEB. NEB PRN (19:54)
[2019-06-18] MEDS: ALBUTEROL SO4 0.083% IH SOL 2.5 MG/3 ML VIAL.NEB. NEB PRN (19:55)
[2019-06-18] MEDS: ROSUVASTATIN CA 20 MG TABLET (FP) PO SCH (22:53)
--- NOTE | 2019-06-19 10:38 | DS ---
Physical Examination Vital Signs: Vital Signs Temperature 97.6 F 06/19/19 06:00 Pulse Rate 80 06/19/19 06:00 Respiratory Rate 20 06/19/19 06:00 Blood Pressure 109/55 L 06/19/19 06:00 O2 Sat by Pulse Oximetry (%) 98 06/19/19 04:08 Constitutional: Yes: No Distress, Calm Cardiovascular: Yes: Regular Rate and Rhythm Respiratory: Yes: Diminished Gastrointestinal: Yes: Normal Bowel Sounds, Soft. No: Tenderness Edema: No Labs: CBC, BMP 06/17/19 07:00 06/17/19 07:00 Discharge Summary Problems reviewed: Yes Reason For Visit: COPD W/AUCTE EXACERBATION, SOB, LUNG MASS Current Active Problems CHF (congestive heart failure) (Acute) COPD (chronic obstructive pulmonary disease) (Acute) Lung nodule (Acute) Hospital Course: Admitted for COPD exacerbation He was supposed to have biopsy of lung mass- but procedure cancelled due to COPD flare Pt would like to consider biopsy later date He was seen by Pulmonary on Solumedrol here Pt better dc pt home on tapering prednisone follow up with Dr Vela-- pulmonary as outpt-- to monitor lung mass Condition: Good - Instructions Referrals: Armani Barraza MD [Primary Care Provider] - Kwasi Vela MD, MD [Staff Physician] - Disposition: HOME - Home Medications Comprehensive Discharge Medication List: Ambulatory Orders Tamsulosin HCl [Flomax -] 0.4 mg PO DAILY@0830 #30 cap.er.24h 08/24/14 Ranitidine HCl [Zantac] 150 mg PO BID 07/20/17 Rosuvastatin Calcium [Crestor] 40 mg PO DAILY 07/20/17 Apixaban [Eliquis -] 5 mg PO BID #60 tablet 12/25/18 Furosemide [Lasix] 40 mg PO DAILY 04/30/19 Ibuprofen [Advil -] 200 mg PO PRN 04/30/19 Prednisolone [Millipred] 5 mg PO DAILY 04/30/19 Albuterol Sulfate Inhaler - [Ventolin Hfa Inhaler -] 1 - 2 inh PO PRN 05/08/19 Fluticasone/Salmeterol [Advair 250-50 Diskus] 1 each IH DAILY 05/08/19 Hydrocodone/Ibuprofen [Hydrocodone-Ibuprofen 7.5-200] 1 each PO PRN PRN
[2019-06-19] MEDS: FUROSEMIDE 40 MG TABLET (FP) PO SCH (11:14)
[2019-06-19] MEDS: TAMSULOSIN HCL 0.4 MG CAP PO SCH (11:14)
[2019-06-19] MEDS: methylPREDNISolone NA SUCC 40 MG/1 ML VIAL IVPUSH SCH (11:14)
[2019-06-19] MEDS: RANITIDINE HCL 150 MG TABLET (FP) PO SCH (11:14)
[2019-06-19] MEDS: BUDESONIDE/FORMETEROL FUMARATE 80/4.5 mcg INHALER IH SCH (11:15)
[2019-06-19] MEDS: APIXABAN 5 MG TABLET PO SCH (11:18)
[2019-06-19 11:45] VITALS: BP 100/48; PULSE 78; TEMP 98.4
== END 2019-06-19 12:59 | disposition home or self-care (01) | DRG 191 ==
LOC: JER 12:41 → JERBED 17:30 → J8W 20:35
PROVIDERS: ADMIT Internal Medicine; ATTEND Internal Medicine
DX: J44.1 Chronic obstructive pulmonary disease with (acute) exacerbation (principal); I48.92 Unspecified atrial flutter; J44.9 Chronic obstructive pulmonary disease, unspecified; I25.10 Atherosclerotic heart disease of native coronary artery without angina pectoris; Z98.61 Coronary angioplasty status; N40.0 Benign prostatic hyperplasia without lower urinary tract symptoms; Z85.46 Personal history of malignant neoplasm of prostate; I50.9 Heart failure, unspecified; I48.91 Unspecified atrial fibrillation; K21.9 Gastro-esophageal reflux disease without esophagitis; I27.20 Pulmonary hypertension, unspecified; R91.1 Solitary pulmonary nodule; I10 Essential (primary) hypertension
CPT/HCPCS: 36415; 71045-TC-FY; 71275-TC; 80048; 80053; 81003; 83735; 83880; 84484; 85025; 85027; 85610; 93005; 93010; 94640; 94660; 94761; 99284-25

== ENCOUNTER 2023-05-29 11:13 | Inpatient (IN) | payer OTHER ==
[2023-05-29] MEDS ORDERED: METOPROLOL TARTRATE 5 MG/5 ML VIAL ONE (12:00)
[2023-05-29 12:07] LABS: HEMATOCRIT 41.8 % (35.4-49); MCH 28.4 pg (25.7-33.7); MCHC 33.6 g/dl (32.0-35.9); MEAN CELL VOLUME 84.7 fl (80-96); PLATELET COUNT 205 10^3/uL (134-434); RBC 4.94 M/mm3 (4.00-5.60); RDW 15.9 % (11.9-15.9); WHITE BLOOD COUNT 13.4 K/mm3 (4.0-10.0)
[2023-05-29] MEDS ORDERED: METOPROLOL TARTRATE 5 MG/5 ML VIAL IVPUSH ONE (12:13)
[2023-05-29 12:34] LABS: CALCIUM 8.4 mg/dL (8.5-10.1)
[2023-05-29 12:35] LABS: BLOOD UREA NITROGEN 51.6 mg/dL (7-18)
[2023-05-29 12:38] LABS: CREATININE 2.2 mg/dL (0.55-1.3)
[2023-05-29 12:40] LABS: BILIRUBIN,TOTAL 0.6 mg/dL (0.2-1); TOT PROT 6.8 g/dl (6.4-8.2)
[2023-05-29 13:01] LABS: INR 1.07 (0.83-1.09); PROTHROMBIN TIME (PATIENT) 12.4 SEC (9.7-13.0)
[2023-05-29] MEDS ORDERED: SODIUM CHLORIDE 0.9% 500 ML INFUS.BAG IV ONE (13:02)
[2023-05-29 13:03] LABS: ACTIVATED PTT 26.2 SECONDS (25.2-36.5)
[2023-05-29] MEDS ORDERED: AMIODARONE HCL 150 MG/3 ML VIAL IVPB ONE (13:15)
[2023-05-29] MEDS ORDERED: AMIODARONE IN DEXTROSE,ISO-OSM 360 MG/200 ML BAG IV SCH (13:30)
[2023-05-29] MEDS ORDERED: AMIODARONE HCL INJECTION 150 MG in DEXTROSE 5%-WATER - 100 ML IVPB ONE ×2 (13:37→13:41)
[2023-05-29] MEDS ORDERED: AMIODARONE IN DEXTROSE,ISO-OSM 150 MG/100 ML BAG ONE (13:41)
[2023-05-29] MEDS ORDERED: AMIODARONE IN DEXTROSE,ISO-OSM 360 MG/200 ML BAG ONE ×2 (13:44→18:39)
[2023-05-29] MEDS: AMIODARONE IN DEXTROSE,ISO-OSM 360 MG/200 ML BAG IV SCH (14:09)
[2023-05-29] MEDS ORDERED: PIPERACILLIN/TAZOB 4.5 GM 4.5 GM in DEXTROSE 5%-WATER 100 ML IVPB ONE (14:23)
[2023-05-29] MEDS ORDERED: PIPERACILLIN/TAZOB 4.5 GM 4.5 GM/100 ML BAG IVPB ONE (14:37)
[2023-05-29] MEDS ORDERED: DEXTROSE 5%-0.45% SALINE 1,000 ML IV SCH (15:15)
[2023-05-29] MEDS ORDERED: LIDOCAINE VISCOUS 2% ORAL/TOP 15 ML UNIT-DOSE CUP MM ONE (18:18)
[2023-05-29] MEDS ORDERED: ACETAMINOPHEN 325 MG TABLET (FP) PO PRN (21:02)
[2023-05-29] MEDS ORDERED: PIPERACILLIN/TAZOB 2.25 GM 2.25 GM in DEXTROSE 5%-WATER - 50 ML IVPB SCH (21:15)
[2023-05-29 21:35] LABS: MAGNESIUM 2.2 mg/dL (1.8-2.4)
[2023-05-29 21:39] LABS: PHOSPHOROUS 3.9 mg/dL (2.5-4.9)
[2023-05-29] MEDS: PIPERACILLIN/TAZOB 2.25 GM 2.25 GM in DEXTROSE 5%-WATER - 50 ML IVPB SCH (22:17)
[2023-05-30] MEDS: AMIODARONE IN DEXTROSE,ISO-OSM 360 MG/200 ML BAG IV SCH ×2 (01:28→12:58)
[2023-05-30] MEDS: PIPERACILLIN/TAZOB 2.25 GM 2.25 GM in DEXTROSE 5%-WATER - 50 ML IVPB SCH ×3 (02:28→21:53)
[2023-05-30] MEDS ORDERED: ALBUTEROL SO4 HFA INHALER IH PRN (03:15)
[2023-05-30] MEDS ORDERED: oxyCODONE HCL 5 MG TABLET PO PRN (03:22)
[2023-05-30] MEDS ORDERED: BUPIVACAINE HCL/PF 0.25% (2.5MG/ML) 10 ML VIAL ONE (07:31)
[2023-05-30] MEDS ORDERED: SUCCINYLCHOLINE CHLORIDE 200 MG/10 ML SYRINGE ONE (07:44)
[2023-05-30] MEDS ORDERED: ETOMIDATE 20 MG/10 ML VIAL IVPUSH ONE (07:44)
[2023-05-30 07:48] LABS: BASO % 0.4 % (0-2.0); EOS % 0.2 % (0-4.5); HEMATOCRIT 34.5 % (35.4-49); HEMOGLOBIN 11.9 GM/dL (11.7-16.9); LYMPH % 5.8 % (8-40); MCH 28.9 pg (25.7-33.7); MCHC 34.5 g/dl (32.0-35.9); MEAN CELL VOLUME 83.7 fl (80-96); MEAN PLT VOLUME 7.6 fl (7.5-11.1); MONO % 13.8 % (3.8-10.2); NEUT % 79.8 % (42.8-82.8); PLATELET COUNT 158 10^3/uL (134-434); RBC 4.12 M/mm3 (4.00-5.60); RDW 15.8 % (11.9-15.9)
[2023-05-30 08:10] LABS: POTASSIUM 3.2 mmol/L (3.5-5.1)
[2023-05-30] MEDS ORDERED: ROCURONIUM BROMIDE 50 MG/5 ML SYRINGE ONE (08:13)
[2023-05-30] MEDS ORDERED: PIPERACILLIN/TAZOBACTAM 2.25 GM VIAL IVPB ONE (08:15)
[2023-05-30] MEDS ORDERED: SUGAMMADEX SODIUM 200 MG/2 ML VIAL ONE (08:15)
[2023-05-30 08:19] LABS: CALCIUM 7.5 mg/dL (8.5-10.1)
[2023-05-30 08:20] LABS: BLOOD UREA NITROGEN 38.7 mg/dL (7-18)
[2023-05-30 08:22] LABS: CREATININE 1.6 mg/dL (0.55-1.3)
[2023-05-30 08:24] LABS: BILIRUBIN,TOTAL 0.3 mg/dL (0.2-1); TOT PROT 5.5 g/dl (6.4-8.2)
[2023-05-30 08:28] LABS: ALBUMIN 2.3 g/dl (3.4-5.0)
[2023-05-30] MEDS ORDERED: TAMSULOSIN HCL 0.4 MG CAP PO SCH (08:30)
[2023-05-30] MEDS ORDERED: ONDANSETRON 4 MG/2 ML VIAL IVPUSH PRN ×3 (09:09→22:45)
[2023-05-30] MEDS ORDERED: ACETAMINOPHEN 1000 MG/100 ML BAG IVPB ONE (09:10)
[2023-05-30] MEDS ORDERED: ALBUTEROL SO4 HFA INHALER IH ONE (09:14)
[2023-05-30] MEDS ORDERED: LACTATED RINGERS SOLUTION 1,000 ML IV SCH (09:15)
[2023-05-30] MEDS ORDERED: ALBUTEROL SO4 0.083% IH SOL 2.5 MG/3 ML VIAL.NEB. NEB ONE (09:19)
[2023-05-30] MEDS ORDERED: ALBUTEROL SULFATE 0.021% (0.63 MG/3 ML) VIAL.NEB NEB ONE (09:22)
[2023-05-30] MEDS ORDERED: ONDANSETRON 4 MG/2 ML VIAL ONE (09:32)
[2023-05-30] MEDS ORDERED: ACETAMINOPHEN INJECTION 100 ML IVPB ONE (09:32)
[2023-05-30] MEDS ORDERED: DEXTROSE 5%-0.45% SALINE 1,000 ML IV SCH (09:41)
[2023-05-30] MEDS ORDERED: CLOTRIMAZOLE 1% 10 ML TOPICAL SOLUTION TP SCH (10:00)
[2023-05-30] MEDS ORDERED: predniSONE 5 MG TABLET (UD) PO SCH (10:00)
[2023-05-30] MEDS ORDERED: AMMONIUM LACTATE 12% LOTION 225 GM BOTTLE TP SCH (10:00)
[2023-05-30] MEDS: oxyCODONE HCL 5 MG TABLET PO PRN (11:29)
[2023-05-30] MEDS: CLOTRIMAZOLE 1% 10 ML TOPICAL SOLUTION TP SCH ×2 (11:31→21:54)
[2023-05-30] MEDS: AMMONIUM LACTATE 12% LOTION 225 GM BOTTLE TP SCH ×2 (11:31→21:54)
[2023-05-30] MEDS: predniSONE 5 MG TABLET (UD) PO SCH (11:31)
[2023-05-30] MEDS: KCL 10 MEQ IVPB 10 MEQ/100 ML INFUS.BAG IVPB SCH ×3 (12:34→15:13)
[2023-05-30] MEDS ORDERED: PIPERACILLIN/TAZOB 2.25 GM 2.25 GM in DEXTROSE 5%-WATER - 50 ML IVPB SCH (15:00)
[2023-05-30] MEDS: ACETAMINOPHEN 1000 MG/100 ML BAG IVPB SCH ×2 (16:13→21:53)
[2023-05-31] MEDS: PIPERACILLIN/TAZOB 2.25 GM 2.25 GM in DEXTROSE 5%-WATER - 50 ML IVPB SCH ×4 (02:14→21:04)
[2023-05-31] MEDS: AMIODARONE IN DEXTROSE,ISO-OSM 360 MG/200 ML BAG IV SCH (02:35)
[2023-05-31] MEDS: ACETAMINOPHEN 1000 MG/100 ML BAG IVPB SCH (04:51)
[2023-05-31] MEDS: SODIUM CHLORIDE 1,000 ML IV SCH ×3 (07:00→21:03)
[2023-05-31 08:28] LABS: HEMATOCRIT 34.9 % (35.4-49); HEMOGLOBIN 11.5 GM/dL (11.7-16.9); MCH 28.1 pg (25.7-33.7); MCHC 33.1 g/dl (32.0-35.9); MEAN CELL VOLUME 84.8 fl (80-96); MEAN PLT VOLUME 7.6 fl (7.5-11.1); PLATELET COUNT 191 10^3/uL (134-434); RBC 4.11 M/mm3 (4.00-5.60); RDW 15.8 % (11.9-15.9); WHITE BLOOD COUNT 5.9 K/mm3 (4.0-10.0)
[2023-05-31] MEDS: SIMETHICONE 80 MG TAB.CHEW (FP) PO PRN ×2 (08:49→14:27)
[2023-05-31] MEDS: TAMSULOSIN HCL 0.4 MG CAP PO SCH (08:49)
[2023-05-31] MEDS: oxyCODONE HCL 5 MG TABLET PO PRN (08:49)
[2023-05-31 09:01] LABS: POTASSIUM 3.6 mmol/L (3.5-5.1)
[2023-05-31] MEDS: predniSONE 5 MG TABLET (UD) PO SCH (09:08)
[2023-05-31] MEDS: AMMONIUM LACTATE 12% LOTION 225 GM BOTTLE TP SCH ×2 (09:08→21:08)
[2023-05-31] MEDS: CLOTRIMAZOLE 1% 10 ML TOPICAL SOLUTION TP SCH ×2 (09:08→21:07)
[2023-05-31 09:23] LABS: CALCIUM 7.4 mg/dL (8.5-10.1)
[2023-05-31 09:24] LABS: ALBUMIN 2.2 g/dl (3.4-5.0); CREATININE 1.4 mg/dL (0.55-1.3)
[2023-05-31 09:25] LABS: BILIRUBIN,TOTAL 0.7 mg/dL (0.2-1)
[2023-05-31 09:26] LABS: TOT PROT 5.4 g/dl (6.4-8.2)
[2023-05-31] MEDS ORDERED: ACETAMINOPHEN 1000 MG/100 ML BAG IVPB PRN (10:06)
[2023-06-01] MEDS: PIPERACILLIN/TAZOB 2.25 GM 2.25 GM in DEXTROSE 5%-WATER - 50 ML IVPB SCH ×4 (02:05→20:29)
[2023-06-01] MEDS: ALBUTEROL SO4 HFA INHALER IH PRN ×2 (02:26→10:04)
[2023-06-01 08:38] LABS: HEMATOCRIT 33.3 % (35.4-49); HEMOGLOBIN 10.9 GM/dL (11.7-16.9); MCH 27.9 pg (25.7-33.7); MCHC 32.9 g/dl (32.0-35.9); MEAN PLT VOLUME 7.4 fl (7.5-11.1); PLATELET COUNT 247 10^3/uL (134-434); RBC 3.92 M/mm3 (4.00-5.60); RDW 15.9 % (11.9-15.9); WHITE BLOOD COUNT 7.9 K/mm3 (4.0-10.0)
[2023-06-01 09:10] LABS: POTASSIUM 3.7 mmol/L (3.5-5.1)
[2023-06-01 09:13] LABS: ALBUMIN 2.1 g/dl (3.4-5.0); BLOOD UREA NITROGEN 21.5 mg/dL (7-18)
[2023-06-01 09:16] LABS: CREATININE 1.2 mg/dL (0.55-1.3)
[2023-06-01 09:17] LABS: BILIRUBIN,TOTAL 0.5 mg/dL (0.2-1); TOT PROT 5.2 g/dl (6.4-8.2)
[2023-06-01 09:22] LABS: CALCIUM 7.8 mg/dL (8.5-10.1)
[2023-06-01] MEDS: TAMSULOSIN HCL 0.4 MG CAP PO SCH (09:45)
[2023-06-01] MEDS: AMMONIUM LACTATE 12% LOTION 225 GM BOTTLE TP SCH ×2 (10:00→22:00)
[2023-06-01] MEDS: CLOTRIMAZOLE 1% 10 ML TOPICAL SOLUTION TP SCH (10:00)
[2023-06-01] MEDS: SIMETHICONE 80 MG TAB.CHEW (FP) PO PRN (10:03)
[2023-06-01] MEDS: predniSONE 5 MG TABLET (UD) PO SCH (10:04)
[2023-06-01] MEDS: SODIUM CHLORIDE 1,000 ML IV SCH (11:44)
[2023-06-02] MEDS: CLOTRIMAZOLE 1% 10 ML TOPICAL SOLUTION TP SCH ×3 (01:32→21:28)
[2023-06-02] MEDS: PIPERACILLIN/TAZOB 2.25 GM 2.25 GM in DEXTROSE 5%-WATER - 50 ML IVPB SCH ×4 (04:34→21:28)
[2023-06-02] MEDS: SIMETHICONE 80 MG TAB.CHEW (FP) PO PRN (04:44)
[2023-06-02 08:19] LABS: HEMATOCRIT 34.8 % (35.4-49); HEMOGLOBIN 11.9 GM/dL (11.7-16.9); MCH 28.6 pg (25.7-33.7); MEAN CELL VOLUME 84.1 fl (80-96); PLATELET COUNT 327 10^3/uL (134-434); RBC 4.14 M/mm3 (4.00-5.60); RDW 16.2 % (11.9-15.9); WHITE BLOOD COUNT 7.9 K/mm3 (4.0-10.0)
[2023-06-02 08:38] LABS: POTASSIUM 3.8 mmol/L (3.5-5.1)
[2023-06-02 08:41] LABS: BLOOD UREA NITROGEN 17.5 mg/dL (7-18); CALCIUM 7.6 mg/dL (8.5-10.1)
[2023-06-02 09:24] LABS: ANISOCYTOSIS 0; HELMET CELLS 0; HOWELL-JOLLY BODIES 0; MACROCYTOSIS 0; OVALOCYTE 0; ROULEAU 0; SICKELED CELLS 0; TARGET CELLS 0; TEAR DROP CELLS 0; TOXIC GRANULATION 0
[2023-06-02] MEDS: predniSONE 5 MG TABLET (UD) PO SCH (10:22)
[2023-06-02] MEDS: TAMSULOSIN HCL 0.4 MG CAP PO SCH (10:22)
[2023-06-02] MEDS: AMMONIUM LACTATE 12% LOTION 225 GM BOTTLE TP SCH ×2 (10:25→21:29)
[2023-06-02] MEDS: SODIUM CHLORIDE 1,000 ML IV SCH (11:32)
[2023-06-03] MEDS: PIPERACILLIN/TAZOB 2.25 GM 2.25 GM in DEXTROSE 5%-WATER - 50 ML IVPB SCH ×4 (03:30→21:24)
[2023-06-03] MEDS: TAMSULOSIN HCL 0.4 MG CAP PO SCH (10:00)
[2023-06-03] MEDS: predniSONE 5 MG TABLET (UD) PO SCH (10:00)
[2023-06-03] MEDS: SODIUM CHLORIDE 1,000 ML IV SCH (10:05)
[2023-06-03] MEDS: CLOTRIMAZOLE 1% 10 ML TOPICAL SOLUTION TP SCH ×2 (10:07→21:24)
[2023-06-03] MEDS: AMMONIUM LACTATE 12% LOTION 225 GM BOTTLE TP SCH ×2 (10:08→21:25)
[2023-06-04] MEDS ORDERED: ALBUTEROL SO4 HFA INHALER IH PRN (00:03)
[2023-06-04] MEDS ORDERED: ONDANSETRON 4 MG/2 ML VIAL IVPUSH PRN (00:03)
[2023-06-04] MEDS ORDERED: SODIUM CHLORIDE 1,000 ML IV SCH (00:03)
[2023-06-04] MEDS: PIPERACILLIN/TAZOB 2.25 GM 2.25 GM in DEXTROSE 5%-WATER - 50 ML IVPB SCH ×3 (02:39→14:21)
[2023-06-04 07:35] LABS: POTASSIUM 3.7 mmol/L (3.5-5.1)
[2023-06-04 07:39] LABS: CALCIUM 7.8 mg/dL (8.5-10.1)
[2023-06-04 07:42] LABS: CREATININE 0.8 mg/dL (0.55-1.3)
[2023-06-04] MEDS: TAMSULOSIN HCL 0.4 MG CAP PO SCH (08:42)
[2023-06-04] MEDS: AMMONIUM LACTATE 12% LOTION 225 GM BOTTLE TP SCH ×2 (09:44→22:21)
[2023-06-04] MEDS: CLOTRIMAZOLE 1% 10 ML TOPICAL SOLUTION TP SCH ×2 (09:44→22:21)
[2023-06-04] MEDS: predniSONE 5 MG TABLET (UD) PO SCH (09:45)
[2023-06-04] MEDS ORDERED: AMINO ACIDS 4.25%/D5W 1,000 ML IV SCH (10:00)
[2023-06-04 13:18] LABS: BASO % 0.6 % (0-2.0); EOS % 0.3 % (0-4.5); HEMATOCRIT 34.5 % (35.4-49); HEMOGLOBIN 11.3 GM/dL (11.7-16.9); LYMPH % 10.2 % (8-40); MCH 28.2 pg (25.7-33.7); MCHC 32.7 g/dl (32.0-35.9); MEAN CELL VOLUME 86.4 fl (80-96); MEAN PLT VOLUME 6.5 fl (7.5-11.1); MONO % 12.5 % (3.8-10.2); NEUT % 76.4 % (42.8-82.8); PLATELET COUNT 372 10^3/uL (134-434); RDW 15.9 % (11.9-15.9); WHITE BLOOD COUNT 7.8 K/mm3 (4.0-10.0)
[2023-06-04 13:46] LABS: POTASSIUM 3.9 mmol/L (3.5-5.1)
[2023-06-04 13:48] LABS: CALCIUM 7.4 mg/dL (8.5-10.1)
[2023-06-04 13:49] LABS: BLOOD UREA NITROGEN 12.6 mg/dL (7-18)
[2023-06-04 13:52] LABS: CREATININE 0.9 mg/dL (0.55-1.3)
[2023-06-04 13:54] LABS: BILIRUBIN,TOTAL 0.5 mg/dL (0.2-1)
[2023-06-04] MEDS: POTASSIUM CHLORIDE 10 MEQ in AMINO ACIDS 4.25%/D5W 1,000 ML IV SCH (14:18)
[2023-06-04] MEDS: PIPERACILLIN/TAZOB 3.375 GM 3.375 GM in DEXTROSE 5%-WATER - 50 ML IVPB SCH (22:15)
[2023-06-05] MEDS: PIPERACILLIN/TAZOB 3.375 GM 3.375 GM in DEXTROSE 5%-WATER - 50 ML IVPB SCH ×3 (02:18→17:02)
[2023-06-05] MEDS: POTASSIUM CHLORIDE 10 MEQ in AMINO ACIDS 4.25%/D5W 1,000 ML IV SCH ×2 (05:50→15:39)
[2023-06-05 07:45] LABS: POTASSIUM 3.6 mmol/L (3.5-5.1)
[2023-06-05 07:49] LABS: BLOOD UREA NITROGEN 11.8 mg/dL (7-18); CALCIUM 7.2 mg/dL (8.5-10.1)
[2023-06-05 07:50] LABS: ALBUMIN 1.9 g/dl (3.4-5.0)
[2023-06-05 07:53] LABS: CREATININE 0.9 mg/dL (0.55-1.3)
[2023-06-05 07:54] LABS: BILIRUBIN,TOTAL 0.4 mg/dL (0.2-1)
[2023-06-05 08:20] LABS: BASO % 0.5 % (0-2.0); EOS % 0.5 % (0-4.5); HEMATOCRIT 31.6 % (35.4-49); HEMOGLOBIN 10.5 GM/dL (11.7-16.9); LYMPH % 14.3 % (8-40); MCH 28.2 pg (25.7-33.7); MCHC 33.3 g/dl (32.0-35.9); MEAN CELL VOLUME 84.9 fl (80-96); MEAN PLT VOLUME 6.5 fl (7.5-11.1); MONO % 15.3 % (3.8-10.2); NEUT % 69.4 % (42.8-82.8); PLATELET COUNT 387 10^3/uL (134-434); RBC 3.73 M/mm3 (4.00-5.60); RDW 15.5 % (11.9-15.9); WHITE BLOOD COUNT 8.1 K/mm3 (4.0-10.0)
[2023-06-05] MEDS: AMMONIUM LACTATE 12% LOTION 225 GM BOTTLE TP SCH ×2 (09:58→21:25)
[2023-06-05] MEDS: TAMSULOSIN HCL 0.4 MG CAP PO SCH ×2 (09:58→10:07)
[2023-06-05] MEDS: CLOTRIMAZOLE 1% 10 ML TOPICAL SOLUTION TP SCH ×2 (09:58→21:26)
[2023-06-05] MEDS: predniSONE 5 MG TABLET (UD) PO SCH (09:58)
[2023-06-06] MEDS: POTASSIUM CHLORIDE 10 MEQ in AMINO ACIDS 4.25%/D5W 1,000 ML IV SCH ×3 (01:37→23:05)
[2023-06-06] MEDS: PIPERACILLIN/TAZOB 3.375 GM 3.375 GM in DEXTROSE 5%-WATER - 50 ML IVPB SCH ×3 (01:37→19:22)
[2023-06-06] MEDS: TAMSULOSIN HCL 0.4 MG CAP PO SCH (10:23)
[2023-06-06] MEDS: CLOTRIMAZOLE 1% 10 ML TOPICAL SOLUTION TP SCH ×2 (10:23→23:05)
[2023-06-06] MEDS: AMMONIUM LACTATE 12% LOTION 225 GM BOTTLE TP SCH ×2 (10:23→23:04)
[2023-06-07] MEDS: CLOTRIMAZOLE 1% 10 ML TOPICAL SOLUTION TP SCH ×4 (01:31→22:17)
[2023-06-07] MEDS: PIPERACILLIN/TAZOB 3.375 GM 3.375 GM in DEXTROSE 5%-WATER - 50 ML IVPB SCH ×2 (01:31→10:22)
[2023-06-07 08:00] LABS: BASO % 0.4 % (0-2.0); EOS % 0.7 % (0-4.5); HEMATOCRIT 33.3 % (35.4-49); HEMOGLOBIN 11.3 GM/dL (11.7-16.9); LYMPH % 13.3 % (8-40); MCH 28.6 pg (25.7-33.7); MEAN CELL VOLUME 84.3 fl (80-96); MEAN PLT VOLUME 6.6 fl (7.5-11.1); MONO % 13.2 % (3.8-10.2); NEUT % 72.4 % (42.8-82.8); PLATELET COUNT 341 10^3/uL (134-434); RBC 3.95 M/mm3 (4.00-5.60); RDW 16.1 % (11.9-15.9)
[2023-06-07 08:14] LABS: POTASSIUM 3.4 mmol/L (3.5-5.1)
[2023-06-07 08:16] LABS: CALCIUM 7.6 mg/dL (8.5-10.1)
[2023-06-07 08:17] LABS: MAGNESIUM 1.2 mg/dL (1.8-2.4)
[2023-06-07 08:19] LABS: ALBUMIN 1.9 g/dl (3.4-5.0); BLOOD UREA NITROGEN 15.2 mg/dL (7-18)
[2023-06-07 08:20] LABS: CREATININE 0.9 mg/dL (0.55-1.3)
[2023-06-07 08:23] LABS: BILIRUBIN,TOTAL 0.4 mg/dL (0.2-1)
[2023-06-07] MEDS: TAMSULOSIN HCL 0.4 MG CAP PO SCH ×2 (10:18→10:22)
[2023-06-07] MEDS: AMMONIUM LACTATE 12% LOTION 225 GM BOTTLE TP SCH ×2 (10:18→22:17)
[2023-06-07] MEDS ORDERED: POTASSIUM CHLORIDE ORAL LIQUID 20 MEQ/15 ML PO ONE (11:09)
[2023-06-07] MEDS: AMINO ACIDS/PROTEIN HYDROLYS 30 ML LIQUID.PKT PO SCH (17:20)
[2023-06-07] MEDS: MAGNESIUM OXIDE 400 MG TABLET (FP) PO SCH (22:17)
[2023-06-08] MEDS ORDERED: oxyCODONE HCL 5 MG TABLET PO ONE (02:09)
[2023-06-08] MEDS: TAMSULOSIN HCL 0.4 MG CAP PO SCH (10:29)
[2023-06-08] MEDS: MAGNESIUM OXIDE 400 MG TABLET (FP) PO SCH ×2 (10:30→21:09)
[2023-06-08] MEDS: AMINO ACIDS/PROTEIN HYDROLYS 30 ML LIQUID.PKT PO SCH ×2 (10:30→17:39)
[2023-06-08] MEDS: CLOTRIMAZOLE 1% 10 ML TOPICAL SOLUTION TP SCH ×2 (10:33→21:10)
[2023-06-08] MEDS: AMMONIUM LACTATE 12% LOTION 225 GM BOTTLE TP SCH ×2 (10:33→21:09)
[2023-06-08] MEDS ORDERED: MAGNESIUM SULF 50% (8.12 MEQ/2 ML-1 GM VIAL) IVPB ONE (12:53)
[2023-06-08] MEDS ORDERED: ACETAMINOPHEN 650 MG/20.3 ML ORAL SOLUTION (CUPS) PO PRN (14:26)
[2023-06-09 08:35] LABS: POTASSIUM 3.4 mmol/L (3.5-5.1)
[2023-06-09 08:40] LABS: ALBUMIN 2.1 g/dl (3.4-5.0); BLOOD UREA NITROGEN 12.1 mg/dL (7-18); CALCIUM 7.7 mg/dL (8.5-10.1); MAGNESIUM 1.4 mg/dL (1.8-2.4)
[2023-06-09 08:42] LABS: CREATININE 0.9 mg/dL (0.55-1.3)
[2023-06-09 08:44] LABS: BILIRUBIN,TOTAL 0.6 mg/dL (0.2-1); TOT PROT 5.3 g/dl (6.4-8.2)
[2023-06-09] MEDS: MAGNESIUM OXIDE 400 MG TABLET (FP) PO SCH ×2 (09:08→21:02)
[2023-06-09] MEDS: CLOTRIMAZOLE 1% 10 ML TOPICAL SOLUTION TP SCH ×2 (09:10→21:03)
[2023-06-09] MEDS: TAMSULOSIN HCL 0.4 MG CAP PO SCH (09:10)
[2023-06-09] MEDS: AMINO ACIDS/PROTEIN HYDROLYS 30 ML LIQUID.PKT PO SCH ×2 (09:10→16:34)
[2023-06-09] MEDS: AMMONIUM LACTATE 12% LOTION 225 GM BOTTLE TP SCH ×2 (09:10→21:03)
[2023-06-09] MEDS: oxyCODONE HCL 5 MG TABLET PO PRN ×2 (09:12→21:02)
[2023-06-09] MEDS ORDERED: DOCUSATE SODIUM 100 MG CAPSULE (FP) PO SCH ×2 (10:00)
[2023-06-09] MEDS ORDERED: POTASSIUM CHLORIDE ORAL LIQUID 20 MEQ/15 ML PO ONE (14:52)
[2023-06-09] MEDS ORDERED: MAGNESIUM SULF 50% (8.12 MEQ/2 ML-1 GM VIAL) IVPB ONE (14:53)
[2023-06-09] MEDS ORDERED: LOPERAMIDE HCL 2 MG CAPSULE PO ONE (16:30)
[2023-06-09] MEDS: APIXABAN 5 MG TABLET PO SCH (21:02)
[2023-06-10] MEDS: oxyCODONE HCL 5 MG TABLET PO PRN ×3 (08:03→23:55)
[2023-06-10] MEDS: SIMETHICONE 80 MG TAB.CHEW (FP) PO PRN ×3 (08:04→17:57)
[2023-06-10] MEDS: AMINO ACIDS/PROTEIN HYDROLYS 30 ML LIQUID.PKT PO SCH ×2 (08:06→16:37)
[2023-06-10] MEDS: TAMSULOSIN HCL 0.4 MG CAP PO SCH (08:07)
[2023-06-10 08:18] LABS: BASO % 0.6 % (0-2.0); HEMOGLOBIN 10.3 GM/dL (11.7-16.9); LYMPH % 18.1 % (8-40); MCH 28.4 pg (25.7-33.7); MCHC 33.3 g/dl (32.0-35.9); MEAN CELL VOLUME 85.3 fl (80-96); MEAN PLT VOLUME 6.9 fl (7.5-11.1); MONO % 19.9 % (3.8-10.2); NEUT % 60.4 % (42.8-82.8); PLATELET COUNT 337 10^3/uL (134-434); RBC 3.63 M/mm3 (4.00-5.60); RDW 15.5 % (11.9-15.9); WHITE BLOOD COUNT 6.7 K/mm3 (4.0-10.0)
[2023-06-10 08:38] LABS: POTASSIUM 3.8 mmol/L (3.5-5.1)
[2023-06-10 08:47] LABS: ALBUMIN 2.2 g/dl (3.4-5.0); BLOOD UREA NITROGEN 12.3 mg/dL (7-18)
[2023-06-10 08:49] LABS: CALCIUM 7.7 mg/dL (8.5-10.1); MAGNESIUM 1.7 mg/dL (1.8-2.4)
[2023-06-10 08:50] LABS: CREATININE 0.9 mg/dL (0.55-1.3)
[2023-06-10 08:51] LABS: BILIRUBIN,TOTAL 0.5 mg/dL (0.2-1)
[2023-06-10 08:52] LABS: TOT PROT 5.4 g/dl (6.4-8.2)
[2023-06-10] MEDS: APIXABAN 5 MG TABLET PO SCH ×2 (09:26→21:48)
[2023-06-10] MEDS: MAGNESIUM OXIDE 400 MG TABLET (FP) PO SCH ×2 (09:26→21:48)
[2023-06-10] MEDS: AMMONIUM LACTATE 12% LOTION 225 GM BOTTLE TP SCH ×2 (09:29→21:46)
[2023-06-10] MEDS: CLOTRIMAZOLE 1% 10 ML TOPICAL SOLUTION TP SCH ×2 (11:45→21:48)
[2023-06-10] MEDS: ACETAMINOPHEN 500 MG TABLET (FP) PO PRN (12:19)
[2023-06-11] MEDS: APIXABAN 5 MG TABLET PO SCH ×2 (09:03→21:23)
[2023-06-11] MEDS: MAGNESIUM OXIDE 400 MG TABLET (FP) PO SCH ×2 (09:03→21:23)
[2023-06-11] MEDS: AMINO ACIDS/PROTEIN HYDROLYS 30 ML LIQUID.PKT PO SCH ×2 (09:03→17:12)
[2023-06-11] MEDS: AMMONIUM LACTATE 12% LOTION 225 GM BOTTLE TP SCH ×2 (09:04→21:23)
[2023-06-11] MEDS: TAMSULOSIN HCL 0.4 MG CAP PO SCH (09:04)
[2023-06-11] MEDS: CLOTRIMAZOLE 1% 10 ML TOPICAL SOLUTION TP SCH ×2 (09:04→21:23)
[2023-06-11] MEDS: oxyCODONE HCL 5 MG TABLET PO PRN (12:42)
[2023-06-11 15:05] VITALS: RESP 18
[2023-06-11 15:41] VITALS: BMI 19.9
[2023-06-11] MEDS: ACETAMINOPHEN 500 MG TABLET (FP) PO PRN (17:12)
[2023-06-12] MEDS: APIXABAN 5 MG TABLET PO SCH (10:20)
[2023-06-12] MEDS: AMINO ACIDS/PROTEIN HYDROLYS 30 ML LIQUID.PKT PO SCH (10:20)
[2023-06-12] MEDS: MAGNESIUM OXIDE 400 MG TABLET (FP) PO SCH (10:20)
[2023-06-12] MEDS: TAMSULOSIN HCL 0.4 MG CAP PO SCH (10:20)
[2023-06-12] MEDS: CLOTRIMAZOLE 1% 10 ML TOPICAL SOLUTION TP SCH (10:21)
[2023-06-12] MEDS: AMMONIUM LACTATE 12% LOTION 225 GM BOTTLE TP SCH (10:22)
[2023-06-12 12:14] VITALS: BP 132/75; PULSE 75; TEMP 98.2
== END 2023-06-12 14:24 | disposition home or self-care (01) | DRG 336 ==
LOC: JER 11:13 → JERBED 17:51 → J4W 19:51 → J4S 06-03 22:48
PROVIDERS: ADMIT Internal Medicine; ATTEND Internal Medicine
PROC: 0DNW4ZZ Release Peritoneum, Percutaneous Endoscopic Approach (ICD-10-PCS; 2023-05-30)
PROC: 0W9 Anatomical Regions, General, Drainage (ICD-10-PCS; 2023-05-30)
PROC: 0DTJ4ZZ Resection of Appendix, Percutaneous Endoscopic Approach (ICD-10-PCS; principal; 2023-05-30 07:30)
DX: K35.33 Acute appendicitis with perforation, localized peritonitis, and gangrene, with abscess (principal); I48.92 Unspecified atrial flutter; N17.9 Acute kidney failure, unspecified; K91.30 Postprocedural intestinal obstruction, unspecified as to partial versus complete; K56.51 Intestinal adhesions [bands], with partial obstruction; R11.2 Nausea with vomiting, unspecified; I25.2 Old myocardial infarction; R00.0 Tachycardia, unspecified; R91.1 Solitary pulmonary nodule; I48.91 Unspecified atrial fibrillation; I25.10 Atherosclerotic heart disease of native coronary artery without angina pectoris; I73.9 Peripheral vascular disease, unspecified; I11.0 Hypertensive heart disease with heart failure; E87.6 Hypokalemia; I50.9 Heart failure, unspecified; J44.9 Chronic obstructive pulmonary disease, unspecified; I48.0 Paroxysmal atrial fibrillation; M54.50 Low back pain, unspecified; R91.8 Other nonspecific abnormal finding of lung field; K21.9 Gastro-esophageal reflux disease without esophagitis; N40.0 Benign prostatic hyperplasia without lower urinary tract symptoms; Z95.5 Presence of coronary angioplasty implant and graft; Z85.46 Personal history of malignant neoplasm of prostate; Y83.8 Other surgical procedures as the cause of abnormal reaction of the patient, or of later complication, without mention of misadventure at the time of the procedure
CPT/HCPCS: 36415; 71045-TC-FY; 71250-TC; 74019-TC-FY; 74176-TC; 74178-TC; 80048; 80053; 80061; 82272; 82962; 83735; 84100; 84443; 84484; 85025; 85027; 85610; 85730; 86850; 86900; 86901; 87040; 87324; 87449; 88304-TC; 93005; 93010; 94760; 94761; 97116-GP; 97162-GP; 99291; Q9967

== ENCOUNTER 2023-07-08 16:08 | Inpatient (IN) | payer OTHER ==
[2023-07-08] MEDS ORDERED: ACETAMINOPHEN INJECTION 100 ML IVPB ONE (17:00)
[2023-07-08] MEDS ORDERED: METOPROLOL TARTRATE 5 MG/5 ML VIAL ONE ×2 (17:02→17:41)
[2023-07-08] MEDS ORDERED: dilTIAZem HCL 125 MG/25 ML - 25 ML VIAL ONE (17:08)
[2023-07-08] MEDS ORDERED: dilTIAZem HCL 50 MG/10 ML - 10 ML VIAL IVPUSH ONE ×2 (17:15→17:16)
[2023-07-08] MEDS ORDERED: ADENOSINE 6 MG/2 ML VIAL IVPUSH ONE ×2 (17:19→17:25)
[2023-07-08] MEDS ORDERED: ACETAMINOPHEN 1000 MG/100 ML BAG IVPB ONE (17:31)
[2023-07-08 17:51] LABS: BASO % 0.3 % (0-2.0); HEMATOCRIT 32.9 % (35.4-49); HEMOGLOBIN 10.5 GM/dL (11.7-16.9); LYMPH % 2.7 % (8-40); MCH 27.7 pg (25.7-33.7); MCHC 31.9 g/dl (32.0-35.9); MEAN CELL VOLUME 86.8 fl (80-96); MEAN PLT VOLUME 7.2 fl (7.5-11.1); MONO % 9.7 % (3.8-10.2); NEUT % 87.3 % (42.8-82.8); PLATELET COUNT 222 10^3/uL (134-434); RBC 3.79 M/mm3 (4.00-5.60); RDW 16.8 % (11.9-15.9); WHITE BLOOD COUNT 16.8 K/mm3 (4.0-10.0)
[2023-07-08 17:57] LABS: INR 1.72 (0.83-1.09); PROTHROMBIN TIME (PATIENT) 19.9 SEC (9.7-13.0)
[2023-07-08 18:05] LABS: VENOUS O2 SATURATION 83.9 % (70-80); VENOUS PCO2 35.4 mmHg (38-52); VENOUS PH 7.423 (7.310-7.410)
[2023-07-08] MEDS ORDERED: AMIODARONE HCL INJECTION 150 MG in DEXTROSE 5%-WATER - 100 ML IVPB ONE ×2 (18:08→21:32)
[2023-07-08] MEDS ORDERED: AMIODARONE IN DEXTROSE,ISO-OSM 360 MG/200 ML BAG IV SCH (18:15)
[2023-07-08] MEDS ORDERED: FOLIC ACID INJECTION - 1 MG, THIAMINE HCL 100 MG, MULTIVIT INJECTION ADULT 10 ML in SOD... IVPB ONE (19:54)
[2023-07-08 20:44] LABS: POTASSIUM 3.5 mmol/L (3.5-5.1)
[2023-07-08 20:46] LABS: ALBUMIN 2.2 g/dl (3.4-5.0); BLOOD UREA NITROGEN 18.6 mg/dL (7-18); MAGNESIUM 1.5 mg/dL (1.8-2.4)
[2023-07-08 20:49] LABS: CREATININE 1.2 mg/dL (0.55-1.3)
[2023-07-08 20:51] LABS: TOT PROT 5.1 g/dl (6.4-8.2)
[2023-07-08] MEDS ORDERED: METOPROLOL TARTRATE 5 MG/5 ML VIAL IVPUSH ONE (21:17)
[2023-07-08] MEDS ORDERED: MAGNESIUM SULF 50% (8.12 MEQ/2 ML-1 GM VIAL) IVPB ONE (21:18)
[2023-07-08] MEDS ORDERED: ACETAMINOPHEN 1000 MG/100 ML BAG IVPB PRN (21:25)
[2023-07-08 21:26] LABS: EPI CELLS >36 /uL (0-25.1); HYALINE CASTS 1 /uL (0-3.1); PH,URINE 6.5 (5.0-8.0); URINE APPEARANCE CLEAR; URINE BACTERIA >9,000 /uL (0-1359); URINE BILIRUBIN NEGATIVE (NEGATIVE); URINE COLOR DK YELLOW; URINE GLUCOSE (UA) NEGATIVE (NEGATIVE); URINE KETONE TRACE (NEGATIVE); URINE LEUK ESTERASE TRACE (NEGATIVE); URINE NITRITE NEGATIVE (NEGATIVE); URINE PROTEIN 2+ (NEGATIVE); URINE RBC 66 /uL (0-23.9); URINE WBC 42 /uL (0-25.8)
[2023-07-08] MEDS ORDERED: AMIODARONE IN DEXTROSE,ISO-OSM 150 MG/100 ML BAG ONE (21:45)
[2023-07-08] MEDS ORDERED: AMIODARONE IN DEXTROSE,ISO-OSM 360 MG/200 ML BAG IV ONE (21:45)
[2023-07-08] MEDS ORDERED: AMIODARONE IN DEXTROSE,ISO-OSM 360 MG/200 ML BAG ONE (21:45)
[2023-07-08] MEDS ORDERED: AZITHROMYCIN IVPB 500 MG in DEXTROSE 5%-WATER - 250 ML IVPB ONE (22:25)
[2023-07-08] MEDS ORDERED: CEFTRIAXONE 1 GM in DEXTROSE 5%-WATER - 50 ML IVPB ONE (22:25)
[2023-07-08] MEDS ORDERED: CEFTRIAXONE 1 GM/50 ML BAG ONE (22:34)
[2023-07-08] MEDS ORDERED: AZITHROMYCIN IVPB 500 MG/250 ML BAG IVPB ONE ×2 (22:35→23:14)
[2023-07-09] MEDS ORDERED: AMIODARONE IN DEXTROSE,ISO-OSM 360 MG/200 ML BAG IV SCH ×2 (03:45→15:45)
[2023-07-09] MEDS ORDERED: AMIODARONE IN DEXTROSE,ISO-OSM 360 MG/200 ML BAG ONE ×2 (03:55→15:54)
[2023-07-09 07:43] LABS: POTASSIUM 3.7 mmol/L (3.5-5.1)
[2023-07-09 07:44] LABS: CALCIUM 7.2 mg/dL (8.5-10.1)
[2023-07-09 07:45] LABS: BLOOD UREA NITROGEN 20.4 mg/dL (7-18)
[2023-07-09 07:48] LABS: PHOSPHOROUS 2.9 mg/dL (2.5-4.9)
[2023-07-09 07:49] LABS: CREATININE 1.3 mg/dL (0.55-1.3)
[2023-07-09] MEDS: TAMSULOSIN HCL 0.4 MG CAP PO SCH (08:36)
[2023-07-09] MEDS: AMINO ACIDS/PROTEIN HYDROLYS 30 ML LIQUID.PKT PO SCH ×2 (08:36→17:56)
[2023-07-09] MEDS ORDERED: ALBUTEROL SO4 HFA INHALER IH ONE (09:08)
[2023-07-09] MEDS: ALBUTEROL SO4 HFA INHALER IH PRN (09:09)
[2023-07-09] MEDS: APIXABAN 5 MG TABLET PO SCH ×2 (10:22→22:07)
[2023-07-09] MEDS: FUROSEMIDE 40 MG TABLET (FP) PO SCH (10:22)
[2023-07-09] MEDS: MAGNESIUM OXIDE 400 MG TABLET (FP) PO SCH ×2 (10:22→22:07)
[2023-07-09] MEDS ORDERED: ROSUVASTATIN CA 20 MG TABLET ONE (22:04)
[2023-07-09] MEDS: ROSUVASTATIN CA 40 MG TABLET PO SCH (22:07)
[2023-07-10] MEDS ORDERED: AZITHROMYCIN IVPB 500 MG in DEXTROSE 5%-WATER - 250 ML IVPB SCH (01:09)
[2023-07-10] MEDS ORDERED: SIMETHICONE 80 MG TAB.CHEW (FP) ONE (01:12)
[2023-07-10] MEDS ORDERED: CEFTRIAXONE 1 GM in DEXTROSE 5%-WATER - 50 ML IVPB SCH (01:17)
[2023-07-10] MEDS: SIMETHICONE 80 MG TAB.CHEW (FP) PO PRN ×2 (01:19→17:32)
[2023-07-10] MEDS ORDERED: CEFTRIAXONE 1 GM/50 ML BAG ONE (01:24)
[2023-07-10] MEDS ORDERED: AZITHROMYCIN IVPB 500 MG/250 ML BAG IVPB ONE (01:51)
[2023-07-10] MEDS ORDERED: ACETAMINOPHEN 1000 MG/100 ML BAG IVPB ONE (02:02)
[2023-07-10] MEDS ORDERED: TRIMETHOBENZAMIDE HCL 200MG/2ML INJ IM PRN (02:08)
[2023-07-10] MEDS ORDERED: FAMOTIDINE 20 MG/50 ML IVPB 20 MG/50 ML MG IVPB ONE (02:15)
[2023-07-10] MEDS ORDERED: METOPROLOL TARTRATE 5 MG/5 ML VIAL IVPUSH ONE ×2 (04:00→06:46)
[2023-07-10] MEDS ORDERED: METOPROLOL TARTRATE 5 MG/5 ML VIAL ONE (04:06)
[2023-07-10] MEDS ORDERED: SODIUM CHLORIDE 250 ML IV STA (06:52)
[2023-07-10] MEDS ORDERED: LEVALBUTEROL HCL 0.63 MG/3 ML VIAL.NEB. IH ONE (06:53)
[2023-07-10] MEDS ORDERED: AMIODARONE IN DEXTROSE,ISO-OSM 360 MG/200 ML BAG ONE (07:53)
[2023-07-10] MEDS ORDERED: AMIODARONE IN DEXTROSE,ISO-OSM 360 MG/200 ML BAG IV SCH (08:00)
[2023-07-10] MEDS: AMINO ACIDS/PROTEIN HYDROLYS 30 ML LIQUID.PKT PO SCH ×2 (08:18→17:29)
[2023-07-10] MEDS: TAMSULOSIN HCL 0.4 MG CAP PO SCH (08:31)
[2023-07-10] MEDS: ALBUTEROL SO4 HFA INHALER IH PRN ×2 (08:41→17:35)
[2023-07-10] MEDS: FUROSEMIDE 40 MG TABLET (FP) PO SCH ×2 (09:25→09:30)
[2023-07-10] MEDS: BUDESONIDE/FORMETEROL FUMARATE 80/4.5 mcg INHALER IH SCH ×2 (09:26→21:25)
[2023-07-10] MEDS: APIXABAN 5 MG TABLET PO SCH ×2 (09:26→21:07)
[2023-07-10] MEDS: MAGNESIUM OXIDE 400 MG TABLET (FP) PO SCH ×2 (09:26→21:07)
[2023-07-10] MEDS ORDERED: dilTIAZem HCL 125 MG/25 ML - 25 ML VIAL ONE (09:45)
[2023-07-10] MEDS ORDERED: dilTIAZem HCL 50 MG/10 ML - 10 ML VIAL IVPUSH ONE (09:56)
[2023-07-10] MEDS ORDERED: AZITHROMYCIN IVPB 500 MG/250 ML BAG IVPB SCH (10:00)
[2023-07-10] MEDS ORDERED: METOPROLOL TARTRATE 5 MG/5 ML VIAL IVPUSH PRN (10:09)
[2023-07-10] MEDS: AMIODARONE IN DEXTROSE,ISO-OSM 360 MG/200 ML BAG IV SCH ×3 (10:24→20:55)
[2023-07-10 11:10] LABS: HEMATOCRIT 32.4 % (35.4-49); HEMOGLOBIN 10.1 GM/dL (11.7-16.9); MCH 27.2 pg (25.7-33.7); MCHC 31.2 g/dl (32.0-35.9); MEAN PLT VOLUME 7.2 fl (7.5-11.1); PLATELET COUNT 273 10^3/uL (134-434); RBC 3.72 M/mm3 (4.00-5.60); RDW 17.2 % (11.9-15.9); WHITE BLOOD COUNT 12.9 K/mm3 (4.0-10.0)
[2023-07-10 12:06] LABS: ALBUMIN 2.1 g/dl (3.4-5.0); BILIRUBIN,TOTAL 0.6 mg/dL (0.2-1); BLOOD UREA NITROGEN 17.2 mg/dL (7-18); CREATININE 1.1 mg/dL (0.55-1.3); POTASSIUM 3.4 mmol/L (3.5-5.1); TOT PROT 5.2 g/dl (6.4-8.2)
[2023-07-10] MEDS: POTASSIUM CHLORIDE TABS 20 MEQ TABLET.ER (FP) PO SCH ×2 (12:20→21:07)
[2023-07-10 16:24] VITALS: BMI 20.2
[2023-07-10] MEDS: ACETAMINOPHEN 325 MG TABLET (FP) PO PRN (17:32)
[2023-07-10] MEDS: ROSUVASTATIN CA 40 MG TABLET PO SCH (21:06)
[2023-07-11] MEDS: ACETAMINOPHEN 325 MG TABLET (FP) PO PRN (02:08)
[2023-07-11] MEDS: ALBUTEROL SO4 HFA INHALER IH PRN ×2 (02:09→09:29)
[2023-07-11] MEDS: AMIODARONE IN DEXTROSE,ISO-OSM 360 MG/200 ML BAG IV SCH ×2 (02:33→03:45)
[2023-07-11] MEDS: TAMSULOSIN HCL 0.4 MG CAP PO SCH (08:50)
[2023-07-11] MEDS: AMINO ACIDS/PROTEIN HYDROLYS 30 ML LIQUID.PKT PO SCH ×2 (08:50→19:33)
[2023-07-11] MEDS: APIXABAN 5 MG TABLET PO SCH ×2 (09:30→21:57)
[2023-07-11] MEDS: POTASSIUM CHLORIDE TABS 20 MEQ TABLET.ER (FP) PO SCH ×2 (09:30→21:57)
[2023-07-11] MEDS: MAGNESIUM OXIDE 400 MG TABLET (FP) PO SCH ×2 (09:30→21:57)
[2023-07-11] MEDS: CEFTRIAXONE 1 GM in DEXTROSE 5%-WATER - 50 ML IVPB SCH (09:30)
[2023-07-11] MEDS: BUDESONIDE/FORMETEROL FUMARATE 80/4.5 mcg INHALER IH SCH ×2 (09:30→22:01)
[2023-07-11] MEDS: FUROSEMIDE 40 MG TABLET (FP) PO SCH (09:30)
[2023-07-11 12:41] LABS: POTASSIUM 3.6 mmol/L (3.5-5.1)
[2023-07-11 12:43] LABS: CALCIUM 7.7 mg/dL (8.5-10.1)
[2023-07-11] MEDS ORDERED: LEVALBUTEROL HCL 0.63 MG/3 ML VIAL.NEB. IH PRN (13:27)
[2023-07-11] MEDS: ROSUVASTATIN CA 40 MG TABLET PO SCH (21:58)
[2023-07-12] MEDS: AMIODARONE IN DEXTROSE,ISO-OSM 360 MG/200 ML BAG IV SCH ×2 (04:45→17:05)
[2023-07-12 07:45] LABS: HEMATOCRIT 29.8 % (35.4-49); HEMOGLOBIN 9.5 GM/dL (11.7-16.9); MCH 27.4 pg (25.7-33.7); MCHC 31.9 g/dl (32.0-35.9); MEAN PLT VOLUME 7.1 fl (7.5-11.1); PLATELET COUNT 335 10^3/uL (134-434); RBC 3.46 M/mm3 (4.00-5.60); RDW 16.9 % (11.9-15.9); WHITE BLOOD COUNT 15.5 K/mm3 (4.0-10.0)
[2023-07-12 08:22] LABS: CALCIUM 7.7 mg/dL (8.5-10.1)
[2023-07-12 08:23] LABS: BLOOD UREA NITROGEN 12.4 mg/dL (7-18)
[2023-07-12 08:25] LABS: CREATININE 1.1 mg/dL (0.55-1.3)
[2023-07-12] MEDS: AMINO ACIDS/PROTEIN HYDROLYS 30 ML LIQUID.PKT PO SCH ×2 (09:07→16:56)
[2023-07-12] MEDS: MAGNESIUM OXIDE 400 MG TABLET (FP) PO SCH ×2 (09:07→22:20)
[2023-07-12] MEDS: FUROSEMIDE 40 MG TABLET (FP) PO SCH (09:07)
[2023-07-12] MEDS: BUDESONIDE/FORMETEROL FUMARATE 80/4.5 mcg INHALER IH SCH ×2 (09:07→22:21)
[2023-07-12] MEDS: CEFTRIAXONE 1 GM in DEXTROSE 5%-WATER - 50 ML IVPB SCH (09:07)
[2023-07-12] MEDS: TAMSULOSIN HCL 0.4 MG CAP PO SCH (09:07)
[2023-07-12] MEDS: APIXABAN 5 MG TABLET PO SCH ×2 (09:07→22:20)
[2023-07-12] MEDS: ROSUVASTATIN CA 40 MG TABLET PO SCH (22:20)
[2023-07-13] MEDS: AMIODARONE IN DEXTROSE,ISO-OSM 360 MG/200 ML BAG IV SCH (05:00)
[2023-07-13] MEDS: AMINO ACIDS/PROTEIN HYDROLYS 30 ML LIQUID.PKT PO SCH ×2 (09:01→17:13)
[2023-07-13] MEDS: FUROSEMIDE 40 MG TABLET (FP) PO SCH (09:29)
[2023-07-13] MEDS: TAMSULOSIN HCL 0.4 MG CAP PO SCH (09:29)
[2023-07-13] MEDS: CEFTRIAXONE 1 GM in DEXTROSE 5%-WATER - 50 ML IVPB SCH (09:29)
[2023-07-13] MEDS: MAGNESIUM OXIDE 400 MG TABLET (FP) PO SCH ×2 (09:29→22:29)
[2023-07-13] MEDS: APIXABAN 5 MG TABLET PO SCH ×2 (09:29→22:29)
[2023-07-13] MEDS: ACETAMINOPHEN 325 MG TABLET (FP) PO PRN ×2 (09:31→22:38)
[2023-07-13] MEDS: SIMETHICONE 80 MG TAB.CHEW (FP) PO PRN (09:31)
[2023-07-13] MEDS: BUDESONIDE/FORMETEROL FUMARATE 80/4.5 mcg INHALER IH SCH ×2 (09:38→22:30)
[2023-07-13] MEDS: ROSUVASTATIN CA 40 MG TABLET PO SCH (22:29)
[2023-07-14] MEDS: ACETAMINOPHEN 325 MG TABLET (FP) PO PRN ×2 (05:44→17:10)
[2023-07-14] MEDS: APIXABAN 5 MG TABLET PO SCH ×2 (09:04→21:45)
[2023-07-14] MEDS: AMINO ACIDS/PROTEIN HYDROLYS 30 ML LIQUID.PKT PO SCH ×2 (09:04→17:10)
[2023-07-14] MEDS: MAGNESIUM OXIDE 400 MG TABLET (FP) PO SCH ×2 (09:04→21:44)
[2023-07-14] MEDS: CEFTRIAXONE 1 GM in DEXTROSE 5%-WATER - 50 ML IVPB SCH (09:04)
[2023-07-14] MEDS: TAMSULOSIN HCL 0.4 MG CAP PO SCH ×2 (09:04→09:08)
[2023-07-14] MEDS: BUDESONIDE/FORMETEROL FUMARATE 80/4.5 mcg INHALER IH SCH ×2 (09:05→21:45)
[2023-07-14] MEDS: FUROSEMIDE 40 MG TABLET (FP) PO SCH ×2 (09:05→09:08)
[2023-07-14] MEDS: traMADol HCL 50 MG TABLET PO PRN (11:39)
[2023-07-14] MEDS: ROSUVASTATIN CA 40 MG TABLET PO SCH (21:44)
[2023-07-15] MEDS: CEFTRIAXONE 1 GM in DEXTROSE 5%-WATER - 50 ML IVPB SCH (09:33)
[2023-07-15] MEDS: AMINO ACIDS/PROTEIN HYDROLYS 30 ML LIQUID.PKT PO SCH ×2 (09:34→17:17)
[2023-07-15] MEDS: MAGNESIUM OXIDE 400 MG TABLET (FP) PO SCH ×2 (09:34→21:07)
[2023-07-15] MEDS: BUDESONIDE/FORMETEROL FUMARATE 80/4.5 mcg INHALER IH SCH ×2 (09:34→21:08)
[2023-07-15] MEDS: APIXABAN 5 MG TABLET PO SCH ×2 (09:34→21:07)
[2023-07-15] MEDS: FUROSEMIDE 40 MG TABLET (FP) PO SCH ×2 (09:34→09:45)
[2023-07-15] MEDS: TAMSULOSIN HCL 0.4 MG CAP PO SCH ×2 (09:34→09:42)
[2023-07-15] MEDS: traMADol HCL 50 MG TABLET PO PRN ×2 (09:44→17:17)
[2023-07-15 12:11] LABS: BASO % 0.8 % (0-2.0); EOS % 1.5 % (0-4.5); HEMATOCRIT 33.9 % (35.4-49); LYMPH % 9.6 % (8-40); MCH 27.5 pg (25.7-33.7); MCHC 32.5 g/dl (32.0-35.9); MEAN CELL VOLUME 84.6 fl (80-96); MEAN PLT VOLUME 6.8 fl (7.5-11.1); MONO % 11.8 % (3.8-10.2); NEUT % 76.3 % (42.8-82.8); PLATELET COUNT 590 10^3/uL (134-434); RBC 4.01 M/mm3 (4.00-5.60); RDW 17.9 % (11.9-15.9); WHITE BLOOD COUNT 11.2 K/mm3 (4.0-10.0)
[2023-07-15 12:29] LABS: CALCIUM 8.3 mg/dL (8.5-10.1)
[2023-07-15 12:30] LABS: BLOOD UREA NITROGEN 18.4 mg/dL (7-18)
[2023-07-15 12:33] LABS: CREATININE 1.1 mg/dL (0.55-1.3)
[2023-07-15 12:35] LABS: BILIRUBIN,TOTAL 0.2 mg/dL (0.2-1)
[2023-07-15] MEDS: ACETAMINOPHEN 325 MG TABLET (FP) PO PRN ×2 (15:30→21:07)
[2023-07-15] MEDS: ROSUVASTATIN CA 40 MG TABLET PO SCH (21:07)
[2023-07-16] MEDS: traMADol HCL 50 MG TABLET PO PRN ×2 (06:11→21:09)
[2023-07-16] MEDS: CEFTRIAXONE 1 GM in DEXTROSE 5%-WATER - 50 ML IVPB SCH (09:47)
[2023-07-16] MEDS: MAGNESIUM OXIDE 400 MG TABLET (FP) PO SCH ×2 (09:47→21:09)
[2023-07-16] MEDS: APIXABAN 5 MG TABLET PO SCH ×2 (09:47→21:09)
[2023-07-16] MEDS: FUROSEMIDE 40 MG TABLET (FP) PO SCH (09:47)
[2023-07-16] MEDS: BUDESONIDE/FORMETEROL FUMARATE 80/4.5 mcg INHALER IH SCH ×2 (09:49→21:10)
[2023-07-16] MEDS: TAMSULOSIN HCL 0.4 MG CAP PO SCH (11:32)
[2023-07-16] MEDS: AMINO ACIDS/PROTEIN HYDROLYS 30 ML LIQUID.PKT PO SCH ×2 (11:32→16:34)
[2023-07-16 20:09] VITALS: TEMP 98.4
[2023-07-16] MEDS: ROSUVASTATIN CA 40 MG TABLET PO SCH (21:09)
[2023-07-17 08:32] VITALS: PULSE 66
[2023-07-17] MEDS: BUDESONIDE/FORMETEROL FUMARATE 80/4.5 mcg INHALER IH SCH (09:40)
[2023-07-17] MEDS: TAMSULOSIN HCL 0.4 MG CAP PO SCH ×2 (09:40→10:18)
[2023-07-17] MEDS: AMINO ACIDS/PROTEIN HYDROLYS 30 ML LIQUID.PKT PO SCH (09:40)
[2023-07-17] MEDS: CEFTRIAXONE 1 GM in DEXTROSE 5%-WATER - 50 ML IVPB SCH (09:40)
[2023-07-17] MEDS: FUROSEMIDE 40 MG TABLET (FP) PO SCH ×2 (09:40→10:18)
[2023-07-17] MEDS: APIXABAN 5 MG TABLET PO SCH (09:40)
[2023-07-17] MEDS: MAGNESIUM OXIDE 400 MG TABLET (FP) PO SCH (09:40)
[2023-07-17] MEDS: ACETAMINOPHEN 325 MG TABLET (FP) PO PRN (09:52)
[2023-07-17] MEDS: SIMETHICONE 80 MG TAB.CHEW (FP) PO PRN (09:52)
[2023-07-17 13:14] VITALS: BP 122/63; RESP 18
== END 2023-07-17 15:51 | disposition home or self-care (01) | DRG 309 ==
LOC: JER 16:08 → JERBED 20:25 → J2W 07-10 08:47 → OBSVTOIN 07-10 10:44 → J5S 07-17 11:47
PROVIDERS: ADMIT Internal Medicine; ATTEND Internal Medicine
DX: I48.92 Unspecified atrial flutter (principal); I24.89 Other forms of acute ischemic heart disease; N39.0 Urinary tract infection, site not specified; I47.10 Supraventricular tachycardia, unspecified; I95.9 Hypotension, unspecified; I25.10 Atherosclerotic heart disease of native coronary artery without angina pectoris; Z95.5 Presence of coronary angioplasty implant and graft; N40.0 Benign prostatic hyperplasia without lower urinary tract symptoms
CPT/HCPCS: 0241U-QW; 36415; 71045-TC-FY; 80048; 80053; 81003; 82803; 83735; 83880; 84100; 84443; 84484; 85025; 85027; 85610; 85730; 87040; 87086; 87186; 93005; 93010; 93306-TC; 94761; 97116-GP; 97162-GP; 99285-25; G0378